=== PATIENT | female | born 1965 | race Caucasian/White ===

== ENCOUNTER 2019-04-06 08:47 | Outpatient (CLI) | payer BC, SELFPAY ==
--- NOTE | 2019-04-06 11:00 | NEURO_ITS ---
Patient Number: [id number] Impression: # Complains of left foot pain. # Normal nerve conduction study with symmetrical latencies and velocities. # Normal needle/EMG exam. # Clinical correlation recommended. Nerve Conduction Studies Anti Sensory Summary Table Stim Site NR Peak (ms) P-T Amp (?V) Site1 Site2 Delta-P (ms) Dist (cm) Tacho (m/s) Left Sup Fibular Anti Sensory (Ant Lat Mall) 14 cm 3.0 5.6 14 cm Ant Lat Mall 3.0 16.0 53 Right Sup Fibular Anti Sensory (Ant Lat Mall) 14 cm 3.8 8.2 14 cm Ant Lat Mall 3.8 16.0 42 Left Sural Anti Sensory (Lat Mall) Calf 3.5 13.9 Calf Lat Mall 3.5 16.0 46 Right Sural Anti Sensory (Lat Mall) Calf 3.6 12.8 Calf Lat Mall 3.6 16.0 44 Motor Summary Table Stim Site NR Onset (ms) O-P Amp (mV) Site1 Site2 Delta-0 (ms) Dist (cm) Tacho (m/s) Left Peroneal Motor (Vastus Med) Ankle 5.3 1.2 Popit Ankle 6.2 35.0 56 Popit 11.5 1.0 Right Peroneal Motor (Vastus Med) Ankle 4.8 2.2 Popit Ankle 7.5 37.0 49 Popit 12.3 1.8 Left Tibial Motor (Abd Pennington Brev) Ankle 4.4 3.8 Knee Ankle 7.9 39.0 49 Knee 12.3 2.1 Right Tibial Motor (Abd Pennington Brev) Ankle 4.1 4.3 Knee Ankle 8.3 40.0 48 Knee 12.4 3.7 F Wave Studies NR F-Lat (ms) L-R F-Lat (ms) Left Peroneal (Mrkrs) (EDB) 49.30 1.41 Right Peroneal (Mrkrs) (EDB) 50.71 1.41 Left Tibial (Mrkrs) (Abd Hallucis) 50.09 1.16 Right Tibial (Mrkrs) (Abd Hallucis) 51.25 1.16 EMG Side Muscle Nerve Root Ins Act Fibs Amp Dur Recrt Comment Right AntTibialis Dp Br Fibular L4-5 Nml Nml Nml Nml Nml Right Gastroc Tibial S1-2 Nml Nml Nml Nml Nml Right Fibularis Long Sup Br Fibular L5-S1 Nml Nml Nml Nml Nml Right Flex Dig Long Tibial L5-S2 Nml Nml Nml Nml Nml Right Ext Dig Brev Dp Br Fibular L5, S1 Nml Nml Nml Nml Nml Left AntTibialis Dp Br Fibular L4-5 Nml Nml Nml Nml Nml Left Gastroc Tibial S1-2 Nml Nml Nml Nml Nml Left Fibularis Long Sup Br Fibular L5-S1 Nml Nml Nml Nml Nml Left Flex Dig Long Tibial L5-S2 Nml Nml Nml Nml Nml Left Ext Dig Brev Dp Br Fibular L5, S1 Nml Nml Nml Nml Nml MTDD
== END 2019-04-06 08:48 | disposition home or self-care (01) ==
PROVIDERS: PCP Family Medicine; Visit Provider Family Medicine
DX: M79.672 Pain in left foot (principal)
CPT/HCPCS: 95886; 95910

== ENCOUNTER → 2019-04-06 10:03 | Outpatient (CLI) | payer BC, SELFPAY ==
--- NOTE | ~2019-04-06 | MM_ITS ---
EXAMINATION: MM screening [facility] HISTORY: Screening mammogram TECHNIQUE: Craniocaudal and mediolateral oblique 3-D tomosynthesis images were obtained and synthetic 2-D images were generated. CAD analysis was submitted and interpreted. COMPARISON: 11/19/2017, 10/08/2016, 09/23/2016 BREAST PARENCHYMAL COMPOSITION: There are scattered areas of fibroglandular density. FINDINGS: Scattered benign-appearing calcifications are present. There is no evidence of suspicious m ass, calcification, or architectural distortion to suggest malignancy in either breast. There has bee n no suspicious interval change. IMPRESSION: 1. No mammographic evidence of malignancy. 2. Recommend routine screening mammography in one year. BI-RADS Category 2: Benign finding(s). Reviewed, dictated and finalized at location A. R TESTER PRIMARY
== END ==
PROVIDERS: PCP Family Medicine; Visit Provider Nurse Practitioner Obstetrics & Gynecology
DX: Z12.31 Encounter for screening mammogram for malignant neoplasm of breast (principal)
CPT/HCPCS: 77063; 77067

== ENCOUNTER 2019-11-10 16:06 | Emergency (ER) | payer BC, SELFPAY ==
[2019-11-10 16:20] VITALS: BP 123/87; PULSE 94; RESP 18; TEMP 37; O2SAT 99
--- NOTE | 2019-11-10 16:23 | ED.SKABFB ---
HPI - Skin/Abscess/Foreign Bdy General Chief complaint: Skin/Abscess/Foreign Body Stated complaint: rash on neck and hands Time Seen by Provider: 11/10/19 16:23 Source: patient and RN notes reviewed History of Present Illness HPI narrative: Patient is a 53-year-old female who presents the urgent care with complaints of a poison carmen rash to the hands, neck, chest and face. Patient states approximately 3 days ago she pulled a large weed/vine and believes that is what caused the rash. Patient states that she has been using an old prescription of triamcinolone to the area without much relief. Denies of any other issues or areas of the rash. No other acute complaints. No acute distress noted. Patient aware of the plan of care. Some parts of this dictation were generated by voice recognition software and may contain typographical and/or grammatical inaccuracies. Related Data Home Medications Medication Instructions Recorded Confirmed multivitamin-ferrous 1 tablet PO DAILY 12/20/18 11/10/19 fumarate-folic acid 18 mg-400 mcg tablet omega-3 fatty acids 1,000 mg 1,000 mg PO DAILY 12/20/18 11/10/19 capsule minocycline 100 mg PO DAILY 11/10/19 11/10/19 pantoprazole 1 mg PO DAILY 11/10/19 11/10/19 valacyclovir 500 mg PO DAILY 11/10/19 11/10/19 Allergies Allergy/AdvReac Type Severity Reaction Status Date / Time ciprofloxacin Allergy Unknown Unknown Verified 11/10/19 16:28 famotidine Allergy Unknown Rash Verified 11/10/19 16:28 Quinolones Allergy Unknown Unknown Verified 11/10/19 16:28 Review of Systems Review of Systems: Narrative: CONSTITUTIONAL: Denies fever, chills, or sweats. EYES: Denies visual changes, redness, or discharge. ENT: Denies rhinorrhea, congestion, sore throat, or otalgia. CARDIOVASCULAR: Denies chest pain, palpitations, or edema. RESPIRATORY: Denies cough or dyspnea. GASTROINTESTINAL: Denies abdominal pain, nausea, vomiting, or diarrhea. GENITOURINARY: Denies dysuria or hematuria. SKIN: Reports of itchy red poison carmen on her face, chest, hands and neck MUSCULOSKELETAL: Denies back pain, joint pain, or myalgia. NEUROLOGIC: Denies headache, numbness, or weakness. All other systems reviewed are negative, except as documented in HPI. PMFSH Social History Social History Smoking status: Never smoker Second hand tobacco smoke exposure: No Alcohol intake: current Substance use: unknown Additional occupation/education comments: Teacher Comments At the time of my signature, I reviewed and agree with the nursing past medical, surgical, social, and family history. There is no relevant family history pertinent to the patient complaint. Exam Narrative: Exam Narrative: GENERAL: This is a well-nourished, well-developed patient, in no apparent distress. HEAD: normocephalic, atraumatic. EYES: PERRL. Sclera clear/white. Vision is grossly intact. EARS: External ears normal, NOSE: External nose normal with no obvious nasal discharge, nares without redness, no rhinorrhea. THROAT: Mucous membranes moist NECK: Neck supple SKIN: Pustular erythemic pruritic Rhus dermatitis noted to the right side of the face, lower lip, chest, back side of the neck and upper back NEURO: awake, alert, and oriented to person, place and time. There were no obvious focal neurologic abnormalities. EXTREMITIES: No clubbing, cyanosis, or edema. Course Vital Signs Vital signs: Vital Signs Temperature 98.6 F 11/10/19 16:20 Pulse Rate 94 11/10/19 16:20 Respiratory Rate 18 11/10/19 16:20 Blood Pressure 123/87 11/10/19 16:20 Pulse Oximetry 99 11/10/19 16:20 Temperature 98.6 F 11/10/19 16:20 Pulse Rate 94 11/10/19 16:20 Respiratory Rate 18 11/10/19 16:20 Blood Pressure 123/87 11/10/19 16:20 Pulse Oximetry 99 11/10/19 16:20 Reviewed MDM - Skin/Abscess/Foreign Bdy MDM Narrative Medical decision making narrative: Advised the patient to
== END 2019-11-10 16:40 | disposition home or self-care (01) ==
PROVIDERS: Emergency Provider Nurse Practitioner Family; PCP Family Medicine
DX: L23.7 Allergic contact dermatitis due to plants, except food (principal)
CPT/HCPCS: 99213; G0463

== ENCOUNTER → 2020-04-23 11:38 | Outpatient (CLI) | payer BC, SELFPAY ==
--- NOTE | ~2020-04-23 | XR_ITS ---
EXAMINATION: XR chest 2V DATE: 04/23/2020 11:45 INDICATION: Right neck pain and swelling TECHNIQUE: Frontal and lateral views of the chest are obtained COMPARISON: 02/01/2014 FINDINGS: The lungs are free of acute opacities. There is no pleural effusion or pneumothorax. The ca rdiomediastinal silhouette is normal. There is moderate thoracic spondylosis. IMPRESSION: 1. No acute cardiopulmonary abnormality. No radiographic correlate for the patient's neck swelling. Reviewed, dictated and finalized at location A. ER REPAIRER IMPRESSION: 1. No acute cardiopulmonary abnormality. No radiographic correlate for the wayne ent's neck swelling.
== END ==
PROVIDERS: PCP Family Medicine; Visit Provider Family Medicine
DX: R59.0 Localized enlarged lymph nodes (principal)
CPT/HCPCS: 71046

== ENCOUNTER 2020-05-07 12:26 | Outpatient (CLI) | payer BC, SELFPAY ==
--- NOTE | ~2020-05-07 | US_ITS ---
EXAMINATION: US soft tissue head and neck DATE: 05/07/2020 13:20 INDICATION: Right level 2 neck mass. Palpable lump. TECHNIQUE: Multiple grayscale and Doppler ultrasound images of the right submandibular region of conc lucio were obtained along with images of the contralateral left submandibular region for comparison. COMPARISON: Carotid CT angiogram dated 02/25/2017 FINDINGS: The palpable abnormality of concern appears to correspond to the right submandibular gland which appe ars enlarged, hypoechoic and with increased vascular flow on color Doppler 1 compared with the contra lateral left submandibular gland. The retromandibular gland measures 4.0 x 4.6 x 2.3 cm and the left submandibular gland measures 3.0 x 1.4 x 2.3 cm. No other abnormal masses or fluid collections identi fied. IMPRESSION: 1. Couple abnormality of concern corresponds to an asymmetrically enlarged, edematous and hyperemic r ight submandibular gland consistent with sialoadenitis. Reviewed, dictated and finalized at location A. IMPRESSION: 1. Couple abnormality of concern corresponds to an asymmetrically enlarged, stas matous and hyperemic right submandibular gland consistent with sialoadenitis.
== END 2020-05-07 12:27 | disposition home or self-care (01) ==
PROVIDERS: PCP Family Medicine; Visit Provider Otolaryngology
DX: R22.1 Localized swelling, mass and lump, neck (principal)
CPT/HCPCS: 76536

== ENCOUNTER → 2020-05-23 15:06 | Outpatient (CLI) | payer BC, SELFPAY ==
--- NOTE | ~2020-05-23 | CT_ITS ---
EXAMINATION: CT soft tissue neck w con EXAM DATE: 05/23/2020 15:36 INDICATION: R22.1 - Localized swelling, mass and lump, neck. TECHNIQUE: Spiral CT of the neck was performed following intravenous injection of 75 mL Omnipaque 350 . Axial, coronal and sagittal images were reviewed. The dose-length product (DLP) for this examinat ion was 382.58 mGy-cm. The exposure was tailored according to patient size (auto mA exposure control ), and iterative reconstruction (ASIR) was used as additional dose reduction technique. Correlation is made to CT carotid exam from 02/25/2017 FINDINGS: There is pathologically enlarged right-sided internal jugular chain lymph node at the krystin bular angle measuring 3.0 x 3.6 cm. This is new compared to 2018, and is suspicious for lymphoma or o ther malignancy. Ultrasound-guided core biopsy is recommended. Some small right thyroid coarse calcifications. The submandibular and parotid glands are symmetric. The superior mediastinum is unremarkable. The airway is unremarkable. Parapharyngeal and pre-gl ottic fat planes are preserved. The opacified vasculature is patent. The orbits are unremarkable. Mild mucoperiosteal thickening inferior aspects of the maxillary sinuses. The mastoid air cells ar e well aerated. Lung apices are clear. There is severe left facet arthropathy at C3-4. Otherwise ov erall mild to moderate cervical spondylosis. IMPRESSION: Pathologically enlarged right internal jugular chain lymph node most likely lymphoma or other malignancy. Recommend ultrasound-guided core biopsy. Reviewed, dictated and finalized at location A. IMPRESSION: Pathologically enlarged right internal jugular chain lymph node mo st likely lymphoma or other malignancy. Recommend ultrasound-guided core biopsy .
[2020-05-23 15:26] LABS: Estimated Glomerular Filt Rate > 60
== END ==
PROVIDERS: PCP Family Medicine; Visit Provider Otolaryngology
DX: R22.1 Localized swelling, mass and lump, neck (principal)
CPT/HCPCS: 70491; Q9967

== ENCOUNTER 2020-06-01 08:06 | Outpatient (CLI) | payer BC, SELFPAY ==
--- NOTE | ~2020-06-01 | US_ITS ---
EXAMINATION: US biopsy lymph node DATE: 06/01/2020 09:32 INDICATION: Right cervical lymphadenopathy. TECHNIQUE: The procedure including the risks, benefits, and alternatives was discussed with the patie nt. Risks discussed included bleeding and infection. The patient understood the risks and agreed to p roceed. The skin overlying the right neck was prepped and draped in usual sterile fashion. Anestheti c was administered with 1% lidocaine subcutaneously. An 18 gauge core biopsy needle was then used to obtain 6 core biopsy specimens under continuous sonographic guidance. The entry site was cleaned and dressed. There were no immediate complications. FINDINGS: Ultrasound images demonstrate the needle in a 4.4 x 2.3 x 3.6 cm right internal jugular us in lymph node. IMPRESSION: 1. Ultrasound-guided core needle biopsy an enlarged right internal jugular chain lymph node. Reviewed, dictated and finalized at location A. IMPRESSION: 1. Ultrasound-guided core needle biopsy an enlarged right internal jugular bright n lymph node.
== END 2020-06-01 08:07 | disposition home or self-care (01) ==
PROVIDERS: PCP Family Medicine; Visit Provider Otolaryngology
DX: R22.1 Localized swelling, mass and lump, neck (principal)
CPT/HCPCS: 38505; 76942; 88108; 88184; 88185; 88305; 88342

== ENCOUNTER 2020-06-12 07:33 | Outpatient (CLI) | payer BC, SELFPAY ==
--- NOTE | ~2020-06-12 | PE_ITS ---
EXAMINATION: PET skull to mid thigh DATE: 06/12/2020 09:20 INDICATION: Right neck poorly differentiated carcinoma. TECHNIQUE: Blood glucose level was 101 mg/dL. 10.737 mCi of 18-fluorodeoxyglucose (18-FDG) was admini stered i.v. Low dose computed tomography (CT) images were acquired from the base of the brain to the proximal thighs for attenuation correction and anatomic localization. Automated exposure control was employed. Dose-length product (DLP) was 977 mGy-cm. Positron emission tomography (PET) images were ac quired in the same distribution. COMPARISON: Neck CT 05/23/2020 FINDINGS: Head/neck: There is increased activity in the nasopharynx, oral cavity, and base of tongue without CT correlate, likely physiologic. There is a 3.7 x 3.3 cm high right internal jugular chain lymph node with maximum SUV of 6.2. There is an 1.8 x 1.0 cm low right internal jugular chain lymph node with ma ximum SUV of 2.5. Chest: The lungs demonstrate mild atelectasis. No pleural effusion. The heart size is normal. There a re coronary artery calcifications. No pericardial effusion. Abdomen/pelvis/proximal thighs: The liver, gallbladder, spleen, pancreas, adrenal glands, and kidneys are normal. There are no dilated loops of bowel. The appendix is normal. There are no pathologically enlarged lymph nodes. There is no free intraperitoneal fluid. There is no osseous malignancy. IMPRESSION: 1. Right internal jugular chain lymphadenopathy with increased activity, consistent with metastatic d isease. Reviewed, dictated and finalized at location A. IMPRESSION: 1. Right internal jugular chain lymphadenopathy with increased activity, consis tent with metastatic disease.
[2020-06-12 07:57] LABS: Glucose Point of Care 101 (65-105)
== END 2020-06-12 07:34 | disposition home or self-care (01) ==
PROVIDERS: PCP Family Medicine; Visit Provider Otolaryngology
DX: C76.0 Malignant neoplasm of head, face and neck (principal); R22.1 Localized swelling, mass and lump, neck
CPT/HCPCS: 78815; 82948; A9552

== ENCOUNTER → 2021-02-01 10:46 | Outpatient (CLI) | payer BC, SELFPAY ==
--- NOTE | ~2021-02-01 | MM_ITS ---
EXAMINATION: MM screening [facility] HISTORY: Screening TECHNIQUE: Craniocaudal and mediolateral oblique 3-D tomosynthesis images were obtained and synthetic 2-D images were generated. CAD analysis was submitted and interpreted. COMPARISON: Comparison to multiple prior studies sequentially, with oldest reviewed study dated 09/2014. BREAST PARENCHYMAL COMPOSITION: There are scattered areas of fibroglandular density. FINDINGS: There is no evidence of suspicious mass, calcification, or architectural distortion to sugg est malignancy in either breast. There has been no suspicious interval change. IMPRESSION: 1. No mammographic evidence of malignancy. 2. Recommend routine screening mammography in one year. BI-RADS Category 1: Negative Reviewed, dictated and finalized at location A. DEPUTY
== END ==
PROVIDERS: Visit Provider Nurse Practitioner Obstetrics & Gynecology
DX: Z12.31 Encounter for screening mammogram for malignant neoplasm of breast (principal)
CPT/HCPCS: 77063; 77067

== ENCOUNTER 2021-05-30 13:27 | Outpatient (CLI) | payer BC, SELFPAY ==
--- NOTE | 2021-05-30 13:39 | ECG_ITS ---
Measurements Intervals Energy Rate: 87 P: 80 IN: 146 QRS: 82 QRSD: 102 T: 83 QT: 368 QTc: 445 Interpretive Statements SINUS RHYTHM NONSPECIFIC T-WAVE ABNORMALITY ABNORMAL ECG NO PREVIOUS ECG AVAILABLE FOR COMPARISON Electronically Signed On 05-30-2021 17:03:15 CDT by Killian Duarte M.D.
== END 2021-05-30 13:28 | disposition home or self-care (01) ==
LOC: ANHCARD 13:30
PROVIDERS: PCP Family Medicine; Visit Provider Family Medicine
DX: R00.0 Tachycardia, unspecified (principal); R94.31 Abnormal electrocardiogram [ECG] [EKG]
CPT/HCPCS: 93005

== ENCOUNTER 2022-03-08 10:19 | Emergency (ER) | payer OTHER, SELFPAY ==
--- NOTE | 2022-03-08 10:21 | ED.FEMALEGU ---
HPI - Female Genitourinary General Chief complaint: Urogenital-Female Stated complaint: Urinary Problem Time Seen by Provider: 03/08/22 10:34 Source: patient and RN notes reviewed Mode of arrival: ambulatory Limitations: no limitations History of Present Illness HPI Narrative: 56-year-old female presents with concern urinary tract infection symptoms for 3 days. She reports dysuria, frequency, suprapubic pressure. Denies fever, aches, chills, sweats. Reports some nausea without vomiting or abdominal pain. Denies back pain MD elicited complaint: UTI Related Data Home Medications Medication Instructions Recorded Confirmed pimecrolimus 1 % topical cream 1 applic topical BID 07/02/20 01/22/22 Allergies Allergy/AdvReac Type Severity Reaction Status Date / Time ciprofloxacin Allergy Unknown rash Verified 01/22/22 16:13 famotidine Allergy Unknown Rash Verified 01/22/22 16:13 Quinolones Allergy Unknown Unknown Verified 01/22/22 16:13 Review of Systems Review of Systems: CONSTITUTIONAL: Denies malaise, chills, sweats, or fever. CARDIOVASCULAR: Denies chest pain, palpitations, or edema. RESPIRATORY: Denies cough or dyspnea. GASTROINTESTINAL: Denies abdominal pain, vomiting, diarrhea. Reports nausea GENITOURINARY: Reports dysuria, frequency, suprapubic pressure. Denies Urgency, flank pain or hematuria. SKIN: Denies rash or itching. MUSCULOSKELETAL: Denies back pain or myalgia. All systems reviewed & are unremarkable except as noted in HPI and below PMFSH Past Medical History Medical History Essential hypertension Fibromyalgia Gastroesophageal reflux disease Hypomagnesemia Mild episode of recurrent major depressive disorder Mixed hyperlipidemia Prediabetes Sleep apnea Vision loss Surgical History Surgical History Hx of tonsillectomy Family History Family History Mother Hypertension Cancer Father Family history of diabetes mellitus in first degree relative Social History Social History Smoking status: Never smoker Second hand tobacco smoke exposure: No Alcohol intake: current Alcohol use details: rare Substance use: never Substance use type: does not use Lack of Transportation: No Lack of Food: Never True Current Housing: I Have Housing Concerned About Future Housing: No Difficulty Paying Gas/Electric Bills: No Difficulty Paying for Meds: No Currently Unemployed: No Education: Master's Degree or Higher Difficulty w/ Childcare or Family Care: No Living arrangements: with family Occupation/Education: occupation Additional occupation/education comments: Teacher Gender identity (if verbalized by the patient): Female Sexual Orientation (if Verbalized by the Patient): Straight or Heterosexual Spiritual care concerns: No Agree to blood products: Yes Comments At time of signature, agree with nursing past medical, surgical, social and family history. There is no relevant family history pertinent to the presenting complaint Exam Narrative: GENERAL: Well-appearing, well-nourished, and in no acute distress. HEAD: Normocephalic. EYES: PERRLA, conjunctivae clear. NECK: Supple. No lymphadenopathy CHEST: Clear to auscultation. No respiratory distress. HEART: Regular rate and rhythm. ABDOMEN: Soft, nontender upon palpation, nondistended, normal active bowel sounds, no palpable or pulsatile masses, no guarding. No CVA tenderness SKIN: Warm, dry, no rash. NEURO: Alert and oriented x3. PSYCH: Normal mood and affect Course Course Emergency Course: Patient is aware of diagnosis, understands and agrees to treatment plan. Anticipatory guidance given. Patient agrees to follow-up as directed and is aware of reasons to seek care at the [facility]
[2022-03-08 10:26] VITALS: BP 130/73; PULSE 104; RESP 16; TEMP 37.1; O2SAT 100
== END 2022-03-08 10:45 | disposition home or self-care (01) ==
PROVIDERS: Emergency Provider Nurse Practitioner; PCP Family Medicine
DX: N39.0 Urinary tract infection, site not specified (principal); I10 Essential (primary) hypertension; M79.7 Fibromyalgia; K21.9 Gastro-esophageal reflux disease without esophagitis; E78.2 Mixed hyperlipidemia; R73.03 Prediabetes; F33.9 Major depressive disorder, recurrent, unspecified
CPT/HCPCS: 81003; 87086; 87088; 99213; G0463

== ENCOUNTER → 2022-04-15 14:59 | Outpatient (CLI) | payer OTHER, SELFPAY ==
--- NOTE | ~2022-04-15 | US_ITS ---
EXAMINATION: US pelvic complete w TV DATE: 04/15/2022 15:29 INDICATION: Pelvic and perineal pain. History of cervical cancer. Comparison:No prior studies for comparison. TECHNIQUE: Multiple transabdominal and endovaginal sonographic images of the pelvis performed. FINDINGS: The uterus measures 5.2 x 1.9 x 3.6 cm. There is a myometrial mass measuring 1.4 cm, consis tent with fibroid. The endometrial complex measures 4 mm. The ovaries are not visualized. There is no free fluid in the pelvis. There are no abnormal masses seen on either side. IMPRESSION: 1. Small uterine fibroid measuring 1.4 cm. 2: Thickened endomtrial complex. The differential diagnosis includes endometrial hyperplasia, polyp a nd carcinoma. Biopsy is recommended. Reviewed, dictated and finalized at location L. [facility] JUDGE IMPRESSION: 1. Small uterine fibroid measuring 1.4 cm. 2: Thickened endomtrial complex. The differential diagnosis includes endometria l hyperplasia, polyp and carcinoma. Biopsy is recommended.
== END ==
PROVIDERS: PCP Family Medicine; Visit Provider Family Medicine
DX: D25.9 Leiomyoma of uterus, unspecified (principal); R93.89 Abnormal findings on diagnostic imaging of other specified body structures; R10.2 Pelvic and perineal pain
CPT/HCPCS: 76830; 76856

== ENCOUNTER 2022-08-02 08:28 | Emergency (ER) | payer OTHER, SELFPAY ==
[2022-08-02 08:32] VITALS: BP 119/72; PULSE 86; RESP 20; TEMP 36.7; O2SAT 100
--- NOTE | 2022-08-02 08:41 | ED.FEMALEGU ---
HPI - Female Genitourinary General Chief complaint: Urogenital-Female Stated complaint: uti Time Seen by Provider: 08/02/22 08:41 Source: patient and RN notes reviewed History of Present Illness HPI Narrative: Patient is a 56-year-old female presents to the Urgent Care with complaints of dysuria and urinary urgency since . Patient does see a urologist and has a history of UTIs. Was told by her doctor to be evaluated this weekend. Patient was on Macrobid a couple months ago for strep B in the urine. Patient denies any fever, nausea, vomiting, back pain or abdominal pain. No other acute complaints. No acute distress noted. Patient aware of the plan of care. Some parts of this dictation were generated by voice recognition software and may contain typographical and/or grammatical inaccuracies. Related Data Home Medications Medication Instructions Recorded Confirmed fesoterodine 4 mg tablet,extended 4 mg PO DAILY 06/11/22 08/02/22 release 24 hr (Toviaz) Allergies Allergy/AdvReac Type Severity Reaction Status Date / Time ciprofloxacin Allergy Unknown rash Verified 08/02/22 08:48 famotidine Allergy Unknown Rash Verified 08/02/22 08:48 Quinolones Allergy Unknown Unknown Verified 08/02/22 08:48 Review of Systems Review of Systems: CONSTITUTIONAL: Denies fever, chills, or sweats. EYES: Denies visual changes, redness, or discharge. ENT: Denies rhinorrhea, congestion, sore throat, or otalgia. CARDIOVASCULAR: Denies chest pain, palpitations, or edema. RESPIRATORY: Denies cough or dyspnea. GASTROINTESTINAL: Denies abdominal pain, nausea, vomiting, or diarrhea. GENITOURINARY: Reports of dysuria and urgency SKIN: Denies rash or itching. MUSCULOSKELETAL: Denies back pain, joint pain, or myalgia. NEUROLOGIC: Denies headache, numbness, or weakness. All other systems reviewed are negative, except as documented in HPI. [facility] Past Medical History Medical History Essential hypertension Fibromyalgia Gastroesophageal reflux disease Hypomagnesemia Mild episode of recurrent major depressive disorder Mixed hyperlipidemia Prediabetes Sleep apnea Vision loss Surgical History Surgical History Hx of tonsillectomy Family History Family History Mother Hypertension Cancer Father Family history of diabetes mellitus in first degree relative Social History Social History Smoking status: Never smoker Second hand tobacco smoke exposure: No Alcohol intake: current Alcohol use details: rare Substance use: never Substance use type: does not use Lack of Transportation: No Lack of Food: Never True Current Housing: I Have Housing Concerned About Future Housing: No Difficulty Paying Gas/Electric Bills: No Difficulty Paying for Meds: No Currently Unemployed: No Education: Master's Degree or Higher Difficulty w/ Childcare or Family Care: No Living arrangements: with family Occupation/Education: occupation Additional occupation/education comments: Teacher Gender identity (if verbalized by the patient): Female Sexual Orientation (if Verbalized by the Patient): Straight or Heterosexual Spiritual care concerns: No Agree to blood products: Yes Comments At the time of my signature, I reviewed and agree with the nursing past medical, surgical, social, and family history. There is no relevant family history pertinent to the patient complaint. Exam Narrative: GENERAL: This is a well-nourished, well-developed patient, in no apparent distress. HEAD: normocephalic, atraumatic. EYES: PERRL. Sclera clear/white. Vision is grossly intact. EARS: External ears normal NOSE: External nose normal with no obvious nasal discharge, nares without redness, no rhinorrhea. THROAT:
== END 2022-08-02 09:05 | disposition home or self-care (01) ==
PROVIDERS: Emergency Provider Nurse Practitioner Family; PCP Family Medicine
DX: N39.0 Urinary tract infection, site not specified (principal); I10 Essential (primary) hypertension; K21.9 Gastro-esophageal reflux disease without esophagitis; E78.5 Hyperlipidemia, unspecified; R73.03 Prediabetes
CPT/HCPCS: 81003; 87086; 99213; G0463

== ENCOUNTER → 2022-09-01 10:34 | Outpatient (CLI) | payer OTHER, SELFPAY ==
--- NOTE | ~2022-09-01 | MM_ITS ---
EXAMINATION: MM screening [facility] HISTORY: Screening TECHNIQUE: Craniocaudal and mediolateral oblique 3-D tomosynthesis images were obtained and synthetic 2-D images were generated. CAD analysis was submitted and interpreted. COMPARISON: Comparison to multiple prior studies sequentially, with oldest reviewed study dated 02/2015. BREAST PARENCHYMAL COMPOSITION: There are scattered areas of fibroglandular density. FINDINGS: There are benign bilateral breast calcifications. There is no evidence of suspicious mass, calcification, or architectural distortion to suggest malignancy in either breast. There has been no suspicious interval change. IMPRESSION: 1. No mammographic evidence of malignancy. 2. Recommend routine screening mammography in one year. BI-RADS Category 1: Negative Reviewed, dictated and finalized at location A.
== END ==
PROVIDERS: PCP Obstetrics & Gynecology; Visit Provider Obstetrics & Gynecology
DX: Z12.31 Encounter for screening mammogram for malignant neoplasm of breast (principal)
CPT/HCPCS: 77063; 77067

== ENCOUNTER 2023-04-09 09:08 | Emergency (ER) | payer OTHER, SELFPAY ==
--- NOTE | 2023-04-09 09:43 | ED.EYEPROB ---
HPI - Eye Problem General Stated complaint: Eye Problem Time Seen by Provider: 04/09/23 09:43 Source: patient, RN notes reviewed and old records reviewed Mode of arrival: ambulatory Limitations: no limitations History of Present Illness HPI Narrative: 57 yo female presents to the [facility] with left eye redness and discharge that started this morning. Eye was crusted 2 year. Denies any blurry vision or change in vision. Wears glasses not contacts Granddaughter had pink eye last week. Onset (ago): hour(s) Related Data Home Medications Medication Instructions Recorded Confirmed fesoterodine 4 mg tablet,extended 4 mg PO DAILY 06/11/22 01/13/23 release 24 hr (Toviaz) Allergies Allergy/AdvReac Type Severity Reaction Status Date / Time ciprofloxacin Allergy Unknown rash Verified 01/13/23 15:24 famotidine Allergy Unknown Rash Verified 01/13/23 15:24 Quinolones Allergy Unknown Unknown Verified 01/13/23 15:24 Review of Systems Review of Systems: All systems reviewed & are unremarkable except as noted in HPI and below Constitutional: Constitutional: Reports no additional constitutional complaints Eyes: Eyes: Reports as per HPI, Reports eye discharge, Reports irritation and Reports itchy eyes ENT: Reports system reviewed and no additional complaints, except as documented Cardiovascular: Cardiovascular: Reports no additional cardiovascular complaints, Denies chest pain and Denies dyspnea Respiratory: Respiratory: Reports no additional respiratory complaints, Denies chest congestion, Denies cough and Denies dyspnea Gastrointestinal: Gastrointestinal: Reports no additional gastrointestinal complaints, Denies abdominal pain, Denies nausea and Denies vomiting Musculoskeletal: Musculoskeletal: Reports no additional musculoskeletal complaints Integumentary/Breasts: Skin/Breast: Reports system reviewed and no additional complaints, except as docu Neurologic: Reports system reviewed and no additional complaints, except as documented Psychiatric: Psychiatric: Reports no additional psychiatric complaints Allergic/Immunologic: Allergic/Immunologic: Reports no additional allergic/immunologic complaints PMFSH Past Medical History Medical History Cancer of head and neck HPV Cervical cancer Essential hypertension Fibromyalgia Gastroesophageal reflux disease Hypomagnesemia Mild episode of recurrent major depressive disorder Mixed hyperlipidemia Prediabetes Sleep apnea Vision loss Surgical History Surgical History Hx of tonsillectomy Family History Family History Mother Hypertension Cancer Father Family history of diabetes mellitus in first degree relative Social History Social History Smoking status: Never smoker Second hand tobacco smoke exposure: No Alcohol intake: current Alcohol use details: rare Substance use: never Substance use type: does not use Lack of Transportation: No Lack of Food: Never True Current Housing: I Have Housing Concerned About Future Housing: No Difficulty Paying Gas/Electric Bills: No Difficulty Paying for Meds: No Currently Unemployed: No Education: Master's Degree or Higher Difficulty w/ Childcare or Family Care: No Living arrangements: with family Occupation/Education: occupation Additional occupation/education comments: Teacher Gender identity (if verbalized by the patient): Female Sexual Orientation (if Verbalized by the Patient): Straight or Heterosexual Spiritual care concerns: No Agree to blood products: Yes Comments At the time of my signature, I reviewed and agree with the nursing past medical, surgical, social, and family history. There is no relevant family history pertinent to the patient complaint. Alen
== END 2023-04-09 09:40 | disposition home or self-care (01) ==
PROVIDERS: Emergency Provider Nurse Practitioner; PCP Family Medicine
DX: H10.32 Unspecified acute conjunctivitis, left eye (principal); I10 Essential (primary) hypertension; E78.2 Mixed hyperlipidemia; Z85.41 Personal history of malignant neoplasm of cervix uteri
CPT/HCPCS: 99212; G0463

== ENCOUNTER 2023-07-14 08:20 | Emergency (ER) | payer OTHER, SELFPAY ==
[2023-07-14 08:24] VITALS: BP 123/77; PULSE 97; RESP 20; TEMP 36.9; O2SAT 100
--- NOTE | 2023-07-14 08:27 | ED.SKABFB ---
HPI - Skin/Abscess/Foreign Bdy General Chief complaint: Skin/Abscess/Foreign Body Stated complaint: poison [place] Time Seen by Provider: 07/14/23 08:29 Source: patient, RN notes reviewed and old records reviewed Mode of arrival: ambulatory Limitations: no limitations History of Present Illness HPI narrative: 57 year old female who presents to [facility] with complaints of exposure to some posion plant on while cleaning out flower beds and mowing and developed rash to chin,near left inner eye and on left upper arm on Thursday. Patient reports that rash is spreading and is very itchy. Patient reports that she has been taking orally Benadryl and has used Benadryl ointment to rash with no improvement. Patient denies any difficulty with her breathing or swallowing with respirations even and nonlabored and SAO2 100% on room air. MD complaint: rash Onset (ago): day(s) (4 days) Location: face Severity: moderate Treatments prior to arrival: Benadryl (orally and ointment to rash) Related Data Home Medications Medication Instructions Recorded Confirmed fesoterodine 4 mg tablet,extended 4 mg PO DAILY 06/11/22 05/01/23 release 24 hr (Toviaz) Allergies Allergy/AdvReac Type Severity Reaction Status Date / Time ciprofloxacin Allergy Unknown rash Verified 05/01/23 09:59 famotidine Allergy Unknown Rash Verified 05/01/23 09:59 Quinolones Allergy Unknown Unknown Verified 05/01/23 09:59 Review of Systems Review of Systems: CONSTITUTIONAL: Denies fever, chills, or sweats. CARDIOVASCULAR: Denies chest pain, palpitations, or edema. RESPIRATORY: Denies cough or dyspnea. SKIN: Reports red raised rash to chin area around mouth, near left inner eye and to left upper arm which is itchy MUSCULOSKELETAL: Denies joint pain or myalgia. NEUROLOGIC: Denies headache, numbness, or weakness. All systems reviewed & are unremarkable except as noted in HPI and below PMFSH Past Medical History Medical History (Updated 07/14/23 @ 08:53 by Joanna Romeo NP) Cancer of head and neck HPV Cervical cancer Essential hypertension Fibromyalgia Gastroesophageal reflux disease Hypomagnesemia Mild episode of recurrent major depressive disorder Mixed hyperlipidemia Prediabetes Sleep apnea Vision loss Surgical History Surgical History (Updated 07/14/23 @ 08:53 by Joanna Romeo NP) H/O lymph node excision right neck with chemo therapy and radiation treatment History of conization of cervix Hx of tonsillectomy Family History Family History Mother Hypertension Cancer Father Family history of diabetes mellitus in first degree relative Social History Social History Smoking status: Never smoker Second hand tobacco smoke exposure: No Alcohol intake: current Alcohol use details: rare Substance use: never Substance use type: does not use Lack of Transportation: No Lack of Food: Never True Current Housing: I Have Housing Concerned About Future Housing: No Difficulty Paying Gas/Electric Bills: No Difficulty Paying for Meds: No Currently Unemployed: No Education: Master's Degree or Higher Difficulty w/ Childcare or Family Care: No Living arrangements: with family Occupation/Education: occupation Additional occupation/education comments: Teacher Gender identity (if verbalized by the patient): Female Sexual Orientation (if Verbalized by the Patient): Straight or Heterosexual Spiritual care concerns: No Agree to blood products: Yes Comments At time of signature, agree with nursing past medical, surgical, social and family history. There is no relevant family history pertinent to the presenting complaint Exam Narrative: GENERAL: Well-appearing, well-nourished, and in no acute distress. HEAD: Normocephalic, atraumatic. EYES: PERRLA, conjunctivae chanell
[2023-07-14] MEDS: methylPREDNISolone ACETATE 80 MG/ML VIAL IM (08:43)
== END 2023-07-14 09:02 | disposition home or self-care (01) ==
PROVIDERS: Emergency Provider Registered Nurse; PCP Family Medicine
DX: L25.5 Unspecified contact dermatitis due to plants, except food (principal); I10 Essential (primary) hypertension; M79.7 Fibromyalgia; K21.9 Gastro-esophageal reflux disease without esophagitis; E78.2 Mixed hyperlipidemia; R73.03 Prediabetes; Z85.858 Personal history of malignant neoplasm of other endocrine glands; Z85.41 Personal history of malignant neoplasm of cervix uteri
CPT/HCPCS: 96372; 99213; G0463; J1010

== ENCOUNTER 2024-01-28 14:49 | Outpatient (CLI) | payer OTHER, SELFPAY ==
--- NOTE | ~2024-01-28 | MM_ITS ---
EXAMINATION: MM screening [facility] BI w [facility] HISTORY: Screening TECHNIQUE: Craniocaudal and mediolateral oblique 3-D tomosynthesis images were obtained and synthetic 2-D images were generated. CAD analysis was submitted and interpreted. COMPARISON: Comparison to multiple prior studies sequentially, with oldest reviewed study dated 09/2016. BREAST PARENCHYMAL COMPOSITION: Not dense: There are scattered areas of fibroglandular density. FINDINGS: There is no evidence of suspicious mass, calcification, or architectural distortion to sugg est malignancy in either breast. There has been no suspicious interval change. IMPRESSION: 1. No mammographic evidence of malignancy. 2. Recommend routine screening mammography in one year. BI-RADS Category 1: Negative Reviewed, dictated and finalized at location B. SUPERVISOR
== END 2024-01-28 14:50 | disposition home or self-care (01) ==
LOC: MICIMG 14:50
PROVIDERS: PCP Family Medicine; Visit Provider Obstetrics & Gynecology
DX: Z12.31 Encounter for screening mammogram for malignant neoplasm of breast (principal)
CPT/HCPCS: 77063; 77067

== ENCOUNTER 2024-07-11 09:03 | Emergency (ER) | payer OTHER, SELFPAY ==
--- OUTSIDE RECORDS SUMMARY | 2024-07-11 09:05 | XMS_ITS | Clinical Summary ---
Author Organization [facility] Address [address] [place] [address] Phone Care Team Providers Care Language Specialist Name Role Phone Naa Elizondo MD Primary Care Provider Zander Bacon MD Unavailable [phone] Enzo Funez MD Unavailable [phone] Troy Crump MD Unavailable [phone] Allergies Active Allergy Reactions Criticality Noted Date Comments Ciprofloxacin Rash 08/02/2020 Famotidine Rash 08/02/2020 Potassium Quinoline Sulfate Unknown 08/03/19 21 Unsure of reaction Medications Cyanocobalamin (VITAMIN B-12) 1000 MCG Tablet Take 1,000 mcg by mouth. 06/16/2020 Active DULoxetine (CYMBALTA) [address] Particles Take 60 mg by mouth. Active Loratadine 10 MG Capsule Take 10 mg by mouth daily. Active Multiple Vitamins-Mineral s (WOMENS MULTI PO) daily. Active pantoprazole (PROTONIX) 40 MG Tablet Delayed Response Take 40 mg by mouth 2 times daily. 04/23/2020 Active traZODone (DESYREL) 50 MG Tablet Take 50 mg by mouth daily. 10/15/2017 Active valACYclovir (VALTREX) 500 MG Tablet Take 500 mg by mouth daily. 05/21/2020 Active Calcium Carb-Cholecalcif joseph (CALCIUM 600 + D PO) Take by mouth Every other day. Active NIFEDIPINE PO daily. Active trimethoprim-juliette ymyxin b (POLYTRIM) 41559-5.1 UNIT/ML-% Solution 04/09/2023 Active Active Problems Problem Noted Date Diagnosed Date Lesion of hard palate 05/17/2024 Overview (05/17/2024): 2 mm punctate lesion of the central hard palate, firm, with benign characteristics clinically. Xerostomia due to radiotherapy 04/24/2021 Overview (10/30/2021): Essentially resolved as per patient on visit 10/30/2021. Secondary to oropharyngeal radiotherapy for oropharyngeal carcinoma. Dysgeusia 04/24/2021 Overview (10/30/2021): Related to radiotherapy and cisplatin for treatment of oropharyngeal carcinoma. Tongue sensitivity to salt and pepper and tomato based products such as ketchup. History of chemotherapy 10/15/2020 Overview (10/15/2020): 3 cycles of cisplatin 100 mg/m2 with 1st cycle 09/03/2020, 2nd cycle 09/24/2020 and 3rd cycle 10/15/2020. 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 The largest node was the right level 2A node which was 5 cm in greatest dimension. There was no extracapsular extension. She was taken back to the OR 08/07/2020 for direct laryngoscopy with biopsy at which time a firm mass involving the right lateral lingual tonsil extending to the glossotonsillar sulcus was noted. The vallecular and midline base of tongue were not involved; the tumor did come up just to the midline. Biopsy of the right lateral lingual tonsil was positive for HPV-related adenosquamous carcinoma consistent with the right neck node histology from 07/17/2020. Non operative management was recommended. She began right oropharynx and regional nesha irradiation 09/03/2020 and completed 10/19/2020 receiving a total dose of 70 Gy in 35 fractions. Concurrent with her radiotherapy she received 3 cycles of cisplatin 100 mg/m2 with 1st cycle 09/03/2020, 2nd cycle 09/24/2020 and 3rd cycle 10/15/2020. History of therapeutic radiation Overview (10/18/2020): Right oropharynx and regional nesha radiation, 70 Gy in 35 fractions, from 09/03/2020 thru 10/19/2020. Resolved Problems Problem Noted Date Diagnosed Date Resolved Date Oral mucositis 10/15/2020 11/07/2020 Oral pain 10/15/2020 11/07/2020 Cancer with unknown primary site 11/07/2020 History of radical dissectio n of right side of neck 11/07/2020 Constipation 11/07/2020 Decreased bowel sounds 10/15 Radiation esophagitis 2021 Acute radiation dermatitis 0 11/07/2020 Adverse effect of radiation 04/24/2021 Overview (11/07/2020): Radiation pharyngitis/esophagitis. Oropharyngeal dysphagia 10/17 Encounter for follow-up exam ination after completed treatment for malignant neoplasm 05/17/2024 Encounters Date Type Department Care Team Description 05/17/2024 9:00 AM CDT Office Visit [facility] [address] [place] [address] Enzo Funez MD Encounter for follow-up examination after completed treatment for malignant neoplasm (Primary Dx); History of primary malignant neoplasm of oropharynx; History of therapeutic radiation; History of chemotherapy; Xerostomia due to radiotherapy; Dysgeusia; Lesion of hard palate Discharge Disposition: Discharged to home or Selfcare 05/17/2024 Travel 05/15/2024 Travel from Last 3 Months Family History Medical History Relation Name Comments Diabetes Father Breast Cancer Maternal Grandmother Cancer Mother Hypertension Mother Relation Name Status Comments Father Alive gastrointestion al issues Maternal Grandmother Mother Alive uterine cancer Social History Tobacco Use Types Packs/Day Years Used Date Smoking Tobacco: Never Smokeless Tobacco: Never Tobacco Cessation:Counseling Given: Not Answered Alcohol Use Standard Drinks/Week Comments Yes 0 (1 standard drink = 0.6 oz pur e alcohol) Occasionally PHQ-2 Answer Date Recorded Total Score - Questions 1-9 12 08/16 Comments No Sex and Gender Information Value Date Recorded Sex Assigned at Not on file Legal Sex Female 5:40 PM CDT Gender Identity Not on file Sexual Orientation Not on file Last Filed Vital Signs Vital Sign Reading Time Taken Comments Blood Pressure 119/75 05/17/2024 9:01 AM CDT Pulse 94 05/17/2024 9:01 AM CDT Temperature 36.5 C (97.7 F) 05/17/2024 9:01 AM CDT Respiratory Rate 18 05/17/2024 9:01 AM CDT Oxygen Saturation 100% 05/17/2024 9:01 AM CDT Inhaled Oxygen Concentration - - Weight 83 kg (183 lb) 05/17/2024 9:01 AM CDT Height 162.6 cm (5' 4) 11/10/2023 3:14 PM CDT Body Mass Index 31.41 11/10/2023 3:14 PM CDT Plan of Treatment Upcoming Encounters Date Type Department Care Team (Late st Contact Info) Description 11/10/2024 3:00 PM CDT Office Visit [facility] Oncology Services [address] [place] [phone] Troy Crump MD [address] [place] [address] Discharge Disposition: Discharged to home or Selfcare 04/24/2025 9:00 AM CDT [facility] [address] [place] [address] Enzo Funez MD [address] [place] [address] Health Maintenance Due Date Last Done Comments Hepatitis C Virus (HCV) Screening 1965 Mammogram 1965 TdaP Immunization 1965 Hepatitis B Immunization (1 of 3 - 19+ 3-dose series) 11/17/1986 Pap Smear 11/17/1988 Cervical Cancer Screening (CCS) 11/17/1997 HPV/Cotest 11/17/1997 Cologuard 11/17/2017 Immunochemical Fecal Occult Blood 11/17/2017 Pneumococcal Immunization (50+ years) (1 of 1 - PCV) 11/17/2017 Zoster Immunization (1 of 2) 11/17/2017 SARS-COV-2 Immunization (3 - season) 2023 02/07/2021, 04/20/2020 Influenza Immunization (Season Ended) 2024 11/27/2020, 11/16/2020, 11/15/2019, Additional history exists Colonoscopy 02/17/2029 02/17/2019, 02/15/2019 Colorectal Cancer Screening 02/17/2029 Respiratory Syncytial Virus (RSV) Immunization (Adult) (1 - 1-dose 75+ series) 11/17/2042 02/17/2019, 02/15/2019 Human Papillomavirus (HPV) Immunization Aged Out No longer eligible based on patient's age to complete this topic Meningococcal Immunization (ACWY) Aged Out No longer eligible based on patient's age to complete this topic Rotavirus Immunization Aged Out No lo nger eligible based on patient's age to complete this topic Goals Goal Patient Goal Type Associated Problems Recent Progress Patient-Stated? Author I want to learn to relax Behavioral Health On track(2020 2:55 PM CDT) Yes Josefina Carr, HOLISTIC PULSER Note: I want to learn how to relax so I can enjoy life. I don't want to be so anxious about all this. Goal Reviewed with: patient today Readiness to change: Ready to change Department associated with goal: [facility] Steps to achieve goal: will identify at least two coping skills/activities/habits that have helped to manage anxiety in the past. will identify at least three new coping skills/activities/habits that may help to prevent and/or cope with anxiety. 3. will identify a plan to implement coping skills and follow this plan for two weeks and evaluate the impact on anxiety 4. Will attend individual and/or group therapy at least 1x/month Behavioral Health Behavioral Health On track(2020 2:56 PM CDT) Josefina Tee, HILARIO Note: Sea will process thoughts and feelings related to her diagnosis and it's impact on her life. Goal Reviewed with: patient today Readiness to change: Ready to change Department associated with goal: [facility] Steps to achieve goal: will identify at least two ways their behavioral health impacts their physical health and vice versa. will implement at least one new way/skill/habit to reduce exacerbation of co-occurring disorders Will attend individual and/or group session at least 1x/month Healthy Lifestyle Healthy Lifestyle Yes Rae Coon, RN Note: Patient states that she would like to relearn better nutrition, relearn the proper foods and fluids to eat after going through chemo [facility] Care Teams Language Specialist Relationship Specialty Start Date End Date Naa Elizondo MD [address] [place] [address] PCP - General Family Medicine 08/02/20 Zander Bacon MD [address] [place] [address] Consulting Physician Otolaryngology & Facial Plastic Surgery 08/02/20 Enzo Funez MD [address] [place] [address] Consulting Physician Radiation Oncology 08/02/20 Troy Crump MD [address] [place] [address] Consulting Physician Medical Oncology 08/14/20
--- OUTSIDE RECORDS SUMMARY | 2024-07-11 09:05 | XMS_ITS | Clinical Summary ---
Author Organization [facility] Address [address] [place] [address] Care Team Providers Care Solid Die Cutter Name Role Phone Naa Elizondo MD Primary Care Provider [phone] Source Comments [facility],non-owned Affiliates and Associated Physician Practices is amultiple site organization consisting of ambulatory clinics and hospital sitesin [place], [place], [place] and [place]. This disclosure is being madepursuant to the Care Everywhere program and may not contain all information available regarding this patient. Last updated 17.[facility] Allergies Active Allergy Reactions Criticality Noted Date Comments Ciprofloxacin Rash Medium 10/28/2017 Famotidine GI Discomfort Low 06/27/2020 Medications * Be aware that medications may not be up to date on this document. Alwaysverify current medications with the patient. pantoprazole EC (PROTONIX) 40 MG tablet Take 1 (one) tablet by mouth once daily 04/23/2020 Active cyanocobalamin (VITAMIN B-12) 1000 MCG tablet Take 1 (one) tablet by mouth once daily 01/29/2021 Active DULoxetine (CYMBALTA) 60 MG capsule Take 1 (one) capsule by mouth once daily 01/29/2021 Active loratadine (CLARITIN) 10 MG tablet Take 1 (one) tablet by mouth once daily 01/29/2021 Active norethindrone (ORTHO MICRONOR; NOR-QD; CAREN; DIVYA; GLORIA-BE; SERGE; POONAM) 0.35 MG tablet Take 1 tablet by mouth once daily Active Drospirenone (SLYND) 4 MG TABS tablet Take 1 (one) tablet by mouth every 24 hours Active valACYclovir (VALTREX) 500 MG tablet Take 1 (one) tablet by mouth once daily 01/29/2021 Active Astatula-3 1000 MG Acti ve Calcium Citrate-Vitamin D (JUAN-CITRATE PLUS VITAMIN D PO) Active Inulin (FIBER CHOICE PO) Active Multiple Vitamins-Minera ls (WOMENS ONE DAILY PO) Active Magnesium 300 MG Active doxycycline hyclate (PERIOSTAT) 20 MG tablet Take 2 tablets by mouth as directed 06/06/2021 Active fesoterodine CR 24hr (Toviaz) 4 MG tablet Take 1 (one) tablet by mouth once daily 06/05/2022 Active amitriptyline (Elavil) 25 MG tablet Take 1 (one) tablet by mouth once daily 10/15/2022 Active buPROPion XL 24hr (Wellbutrin-XL) 300 MG tablet Take 1 (one) tablet by mouth every morning Active methylcellulose (Citrucel) 500 MG tablet Take 1 (one) tablet by mouth once daily Active NIFEdipine CR osmotic 24hr (Procardia-XL) 30 MG tablet Take 1 (one) tablet by mouth once daily Active zolpidem (Ambien) 5 MG tablet Take 1 (one) tablet by mouth once daily Active traZODone (Desyrel) 100 MG tablet Take 1 (one) tablet by mouth once daily Active Opzelura 1.5 % CREA Apply 1 Dose to affected area as directed 06/15/2023 Active terbinafine (LamISIL) 250 MG tablet Take 1 (one) tablet by mouth once daily 06/29/2023 Active Active Problems Problem Noted Date Diagnosed Date 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 Cancer Staging:Clinical stage from 08/15/2020:Stage I(cT1, cN1, cM0) - Signed by Zander Bacon MD on 08/15/2020 Encounters Date Type Department Care Team Description 05/09/2024 Telephone [facility] - ENT [address] [place] [phone] Zander Bacon MD Appointment from Last 3 Months Immunizations Immunization Administration Dates Next Due COVID MAYKEL PRIMARY 18+YR 04/20/2020 Covid Pfizer primary monovalent 12+ yr 0.3mL Pur ple cap 02/07/2021 INFLUENZA VACCINE 11/16/2020 Family History Medical History Relation Name Comments Cancer - Other Brother Osteoporosis Brother Anxiety Disorder Father Hypertension Father Osteoporosis Father Depression Maternal Grandmother Cancer - Other Mother Osteoporosis Mother Dementia Paternal Grandmother Depression Paternal Grandmother Relation Name Status Comments Brother Father Maternal Grandmother Mother Paternal Grandmother Social History Tobacco Use Types Packs/Day Years Used Date Smoking Tobacco: Never Smokeless Tobacco: Never Tobacco Cessation:Counseling Given: Not Answered Alcohol Use Standard Drinks/Week Comments Not Currently 0 (1 standard drink = 0.6 oz pur e alcohol) occ Comments No Sex and Gender Information Value Date Recorded Sex Assigned at Not on file 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 Gender Identity Not on file Sexual Orientation Not on file Last Filed Vital Signs Vital Sign Reading Time Taken Comments Blood Pressure 109/70 11/04/2023 8:23 AM CDT Pulse 89 11/04/2023 8:23 AM CDT Temperature 36.9 C (98.4 F) 06/28/2021 3:31 PM CDT Respiratory Rate 18 10/11/2021 3:55 PM CDT Oxygen Saturation 99% 10/11/2021 3:55 PM CDT Inhaled Oxygen Concentration - - Weight 81.6 kg (180 lb) 11/04/2023 8:23 AM CDT Height 162.6 cm (5' 4) 11/04/2023 8:23 AM CDT Body Mass Index 30.9 11/04/2023 8:23 AM CDT Plan of Treatment Upcoming Encounters Date Type Department Care Team (Late st Contact Info) Description 07/15/2024 3:00 PM CDT Office Visit [facility] - ENT [address] [place] [phone] Zander Bacon MD [address] [place] [id number] Health Maintenance Due Date Last Done Comments COLOGUARD (AGES 45-75) - COLON CA SCREENING 1967 COLON MONITORING 1967 COLONOSCOPY - COLON CA SCREENING 1967 CT COLONOGRAPHY - COLON CA SCREENING 1967 Colorectal Cancer Screening 1967 FIT - COLON CA SCREENING 1967 FLEX SIG - COLON CA SCREENING 1967 MAMMOGRAM 1967 HIV SCREENING 11/17/1982 HEPATITIS C SCREENING 11/13/1985 DTAP/TDAP/TD VACCINES (1 - Tdap) 11/17/1986 HEPATITIS B VACCINE (1 of 3 - 19+ 3-dose series) 11/17/1986 PNEUMOCOCCAL VACCINE 50+ (1 of 1 - PCV) 11/17/2017 ZOSTER VACCINE (1 of 2) 11/17/2017 COVID-19 VACCINE (3 - season) 2023 02/07/2021, 04/20/2020 DEPRESSION SCREENING 02/17/2024 INFLUENZA VACCINE (Season Ended) 2024 11/16/2020 PAP SMEAR 10/28/2025 10/28/2022, 07/19, 09/12/2020 SCREENING FOR DIABETES 07/05/2026 , 07/06/2023, 07/18/2020, Additional history exists LIPID TESTING 07/05/2028 07/06/2023, 06/21/2022 HIB VACCINE Aged Out No longer eligi ble based on patient's age to complete this topic HPV VACCINE Aged Out No longer eligi ble based on patient's age to complete this topic MENINGOCOCCAL (Group B) VACCINE SHARED DECISION-MAKING Aged Out No longer eligible based on patient's age to complete this topic MENINGOCOCCAL GROUPS A/C/Y/W VACCINE Aged Out No longer eligible based on patient's age to complete this topic Procedures Procedure Name Priority Date/Time Associated Diagnosis Comments COMPREHENSIVE METABOLIC PANEL Routine 07/06/2023 8:51 AM CDT Essential (primary) hypertension LIPID PROFILE Routine 07/06/2023 8:51 AM CDT Mixed hyperlipidemia from Last 3 Months or Most Recently Relevant to Health Maintenance Results * (ABNORMAL) COMPREHENSIVE METABOLIC PANEL (07/06/2023 8:51 AM CDT) BUN 10 7 - 26 mg/dL 07/06/2023 9:50 AM [facility] Creatinine 0.79 0.56 - 0.96 mg/dL 07/06/2023 9:50 AM [facility] Sodium 145 136 - 145 mmol/L 07/06/2023 9:50 AM [facility] Potassium 4.2 3.5 - 4.5 mmol/L 07/06/2023 9:50 AM [facility] Chloride 109(H) 98 - 107 mmol/L 07/06/2023 9:50 AM [facility] CO2 28 22 - 29 mmol/L 07/06/2023 9:50 AM [facility] Glucose 97 70 - 115 mg/dL 07/06/2023 9:50 AM [facility] Calcium 9.4 8.4 - 10.2 mg/dL 07/06/2023 9:50 AM [facility] Protein Total 6.7 6.0 - 8.3 g/dL 07/06/2023 9:50 AM [facility] Albumin 3.7 3.4 - 5.0 g/dL 07/06/2023 9:50 AM [facility] Bilirubin Total 0.3 0.2 - 1.2 mg/dL 07/06/2023 9:50 AM [facility] Alkaline Phosphatase 104 40 - 150 U/L 07/06/2023 9:50 AM [facility] ALT 20 5 - 55 U/L 07/06/2023 9:50 AM [facility] AST 15 5 - 34 U/L 07/06/2023 9:50 AM [facility] Anion Gap 8 6 - 16 07/06/2023 9:50 AM [facility] BUN/Creatinine Ratio 13 7 - 23 07/06/2023 9:50 AM [facility] Osmolality Calculated 299(H) 275 - 295 mOsm/kg 07/06/2023 9:50 AM [facility] Albumin/Globulin Ratio 1.2 1.1 - 2.3 07/06/2023 9:50 AM [facility] eGFR by CKD-EPI 88(L) >=90 mL/min/1.7 3 m2 07/06/2023 9:50 AM [facility] Blood BLOOD SPECIMEN / Unknown Lab Venipuncture / Unknown 07/06/2023 8:51 AM CDT 07/06/2023 9:10 AM CDT Naa Elizondo MD LAB - CHEMISTRY ORDERABLES Final Result [address] [address], [place] [phone] * LIPID PROFILE (07/06/2023 8:51 AM CDT) [facility] Cholesterol Total 162 <200 mg/dL 07/06/2023 9:39 AM [facility] HDL 45 >40 mg/dL 07/06/2023 9:39 AM [facility] Comment: ATP III Classification of HDL Cholesterol: <40 mg/dL: Considered a major risk factor. >60 mg/dL: Considered a negative risk factor. LDL Calculated 89 <100 mg/dL 07/06/2023 9:39 AM [facility] Comment: ATP III Classification of LDL Cholesterol: <100 mg/dL: Optimal 100 - 129 mg/dL: Near Optimal/Above Optimal 130 - 159 mg/dL: Borderline High 160 - 189 mg/dL: High >190 mg/dL: Very High Triglycerides 138 <150 mg/dL 07/06/2023 9:39 AM [facility] Comment: ATP III Classification of Triglycerides: <150 mg/dL: Normal 150 - 199 mg/dL: Borderline High 200 - 400 mg/dL: High >500 mg/dL: Very High Blood BLOOD SPECIMEN / Unknown Lab Venipuncture / Unknown 07/06/2023 8:51 AM CDT 07/06/2023 9:10 AM CDT Naa Elizondo MD LAB - CHEMISTRY ORDERABLES Final Result [address] [address], [place] [phone] from Last 3 Months or Most Recently Relevant to Health Maintenance Insurance [employer] Advance Directives Documents on File Type Date Recorded Patient Supercalender Operator Expl anation Adv Directive/Living Will/POA 07/28/2020 1:04 PM * Full Code (Latest Code Status on File) Date Activated Date Inactivated Comments 07/17/2020 4:03 PM 07/19/2020 11:03 AM Care Teams Solid Die Cutter Relationship Specialty Start Date End Date Naa Elizondo MD [address] [place] [address] PCP - General Family Medicine 08/01/20
--- OUTSIDE RECORDS SUMMARY | 2024-07-11 09:05 | XMS_ITS ---
Author Organization [facility] Address [address] [place] [address] Phone Care Team Providers Care Explosion Welder Name Role Phone Naa Elizondo MD Primary Care Provider [phone] Zander Bacon MD Unavailable Enzo Funez MD Unavailable [phone] Troy Crump MD Unavailable Active Problems Problem Noted Date Diagnosed Date [...] in 35 fractions, from 09/03/2020 thru 10/19/2020. Current Treatment and Therapy Plans No current plan information found. Past Treatment and Therapy Plans Lifetime Dose Tracking * Chemical Lifetime Dose Automatic Entry Manual Entr y Cisplatin 263.565 mg/m2 (540 mg) 263.565 mg/m2 (540 mg) 0 mg/m2 (0 mg) Resolved Problems Problem Noted Date Diagnosed Date [...]
--- OUTSIDE RECORDS SUMMARY | 2024-07-11 09:05 | XMS_ITS | Clinical Summary ---
Author Organization [address] Address [address] [place] [address] Care Team Providers Care Marketing Development Manager Name Role Phone Naa Elizondo MD Primary Care Provider [phone] Allergies Active Allergy Reactions Criticality Noted Date Comments Ciprofloxacin Rash Medium 10/28/2017 Medications citalopram (CeleXA) 40 mg tablet Take 40 mg by mouth daily. 3 10/15/2017 Active loratadine (CLARITIN) 10 mg tablet Take 10 mg by mouth daily. 3 10/16/2017 Active traZODone (DESYREL) 50 mg tablet Take 50 mg by mouth nightly. at bedtime. 3 10/15/2017 Active NIFEdipine (PROCARDIA) 10 mg capsule Take 10 mg by mouth 3 (three) times a day. Active norethindrone-e. estradiol-iron (JUNEL FE 03/07) 1 mg-20 mcg (21)/75 mg (7) per tablet Take 1 tablet by mouth daily. Active buPROPion (WELLBUTRIN) 75 mg tablet Take 75 mg by mouth 2 (two) times a day. Active fenofibrate 150 mg capsule Take by mouth. Active lansoprazole (PREVACID) 15 mg capsule Take 15 mg by mouth daily. Active Active Problems No known active problems Encounters Date Type Department Care Team Description 06/08/2024 8:00 AM CDT - 06/08/2024 11:59 PM CDT Hospital Encounter [facility] [address] [place] [address] Screening for colon cancer Discharge Disposition: Discharge to home or self care from Last 3 Months Medical History Medical History Date Comments Depression Hypertension GERD (gastroesophageal reflux disease) Social History Tobacco Use Types Packs/Day Years Used Date Smoking Tobacco: Never Smokeless Tobacco: Never Comments Unknown Sex and Gender Information Value Date Recorded Sex Assigned at Not on file Legal Sex Female 5:42 PM CDT Gender Identity Not on file Sexual Orientation Not on file Obstetrics History Last Filed Vital Signs Vital Sign Reading Time Taken Comments Blood Pressure 112/60 12/28/2021 9:43 AM POLISHING PAD MOUNTER Pulse 102 12/28/2021 9:43 AM POLISHING PAD MOUNTER Temperature 37 C (98.6 F) 12/28/2021 9:43 AM POLISHING PAD MOUNTER Respiratory Rate 16 12/28/2021 9:43 AM POLISHING PAD MOUNTER Oxygen Saturation 98% 12/28/2021 9:43 AM POLISHING PAD MOUNTER Inhaled Oxygen Concentration - - Weight 81.6 kg (180 lb) 12/28/2021 9:43 AM POLISHING PAD MOUNTER Height 162.6 cm (5' 4) 12/28/2021 9:43 AM POLISHING PAD MOUNTER Body Mass Index 30.9 12/28/2021 9:43 AM POLISHING PAD MOUNTER Plan of Treatment Health Maintenance Due Date Last Done Comments Breast Cancer Screening-Mammogram 1965 Cervical Cancer Screening 1967 Depression Screening 1967 Hepatitis C Screening 1967 DTaP/Tdap/Td Vaccine (1 - Tdap) 11/17/1978 Hepatitis B Screening 11/17/1985 Regular Well Visit/Exam 18-64 11/17/1985 Zoster Vaccine (1 of 2) 11/17/2017 Influenza Vaccine (Season Ended) 2024 11/16/2020, 11/24/2018, 11/10/2017, Additional history exists Colon Cancer Screening-Colonoscopy 06/08/2034 06/08/2024, 03/03/2019 Colon Cancer Screening-CT Colonography Discontinued 06/08/2024, 02/25/2023, 03/03/2019 Colon Cancer Screening-DNA Stool Discontinued 06/08/2024, 02/25/2023, 03/03/2019 Colon Cancer Screening-FIT Discontinued 06/08, 02/25/2023, 03/03/2019 Colon Cancer Screening-Sigmoidoscopy Discontinued 06/08/2024, 02/25/2023, 03/03/2019 Pneumococcal vaccine <65 Aged Out No longer eligible based on patient's age to complete this topic Procedures Procedure Name Priority Date/Time Associated Diagnosis Comments CT VIRTUAL COLONOSCOPY DIAGNOSTIC WO CONTRAST Schedule Routine, Read Routine (OP Routine) 06/08/2024 8:48 AM CDT Screening for colon cancer from Last 3 Months Results * CT Colonoscopy Diagnostic WO Contrast (06/08/2024 8:48 AM CDT) Anatomical Region Laterality Modality Body N/A Computed Tomogra phy 06/08/2024 12:5 0 PM CDT Impressions 06/08/2024 1:38 PM CDT Colon: C1: Normal colon or benign lesion, continue routine screening. Extracolonic Findings: E1: Normal exam or anatomic variant Dictated by: Leisa Toussaint M.D. The radiology attending physician has personally reviewed this study, and had reviewed and/or edited this written report and agrees with it. Electronically signed by: Damaso Ferrer M.D. Narrative 06/08/2024 1:38 PM CDT EXAMINATION: CT colonography without intravenous contrast HISTORY: Colon cancer screening, incomplete colonoscopy in 2019. TECHNIQUE: Transaxial computed tomographic images through the abdomen and pelvis were obtained without intravenous contrast after insufflation of the colon with CO2 through a rectal catheter. Images were obtained in the supine and right lateral decubitus positions. COMPARISON: CT colonoscopy, 02/25/2023 FINDINGS: The following findings are reported according to the CT Colonography Reporting and Data System (C-RADS) from Radiology 2005; 236:3-9. Colonic preparation and distention: adequate. All six segments of the colon are adequately distended on both supine and right lateral decubitus views. Colonic findings: There is no diverticulosis. No polyps greater than 5 mm are detected. Extracolonic findings: This CT examination is performed without intravenous contrast and with a low dose technique optimized for evaluation of the colon. Within the limits of this technique, no significant extracolonic findings are present. Procedure Note Damaso Ferrer MD - 06/08/2024 EXAMINATION: CT colonography without intravenous contrast HISTORY: Colon cancer screening, incomplete colonoscopy in 2019. TECHNIQUE: Transaxial computed tomographic images through the abdomen and pelvis were obtained without intravenous contrast after insufflation of the colon with CO2 through a rectal catheter. Images were obtained in the supine and right lateral decubitus positions. COMPARISON: CT colonoscopy, 02/25/2023 FINDINGS: The following findings are reported according to the CT Colonography Reporting and Data System (C-RADS) from Radiology 2005; 236:3-9. Colonic preparation and distention: adequate. All six segments of the colon are adequately distended on both supine and right lateral decubitus views. Colonic findings: There is no diverticulosis. No polyps greater than 5 mm are detected. Extracolonic findings: This CT examination is performed without intravenous contrast and with a low dose technique optimized for evaluation of the colon. Within the limits of this technique, no significant extracolonic findings are present. IMPRESSION: Colon: C1: Normal colon or benign lesion, continue routine screening. Extracolonic Findings: E1: Normal exam or anatomic variant Dictated by: Leisa Toussaint M.D. The radiology attending physician has personally reviewed this study, and had reviewed and/or edited this written report and agrees with it. Electronically signed by: Damaso Ferrer M.D. Naa Elizondo MD IMG CT PROCEDURES Final Result from Last 3 Months Insurance [facility] [employer] [facility] [id number] [facility] [id number] Member Subscriber Plan / Payer (Ef fective 2021-Present) Name:Iraida Denson Member ID:[id number] Relation to Subscriber:Spouse Name:Dorys Denson Subscriber ID:[id number] Date of :1965 (Home) Address: [address] [place] [address] Payer ID:[id number] Type:[employer] HMO/PPO Address: [facility] [address] [place] [id number] Care Teams Marketing Development Manager Relationship Specialty Start Date End Date Naa Elizondo MD PCP - General Family Medicine 10/28/17
--- OUTSIDE RECORDS SUMMARY | 2024-07-11 09:05 | XMS_ITS | Encounter Summary ---
Author Organization [facility] Address [address] [facility] [place] [address] Care Team Providers Care Vehicle Operator Technician Name Role Phone Naa Elizondo MD Primary Care Provider Encounter Details Date Type Department Care Team (Late st Contact Info) Description 06/01/2020 Lab Requisition [facility] [address] [place] [address] Enzo Kerns MD [address] [place], [place] [id number] Enlarged lymph nodes, unspecified Social History Tobacco Use Types Packs/Day Years Used Date Smoking Tobacco: Never Alcohol Use Standard Drinks/Week Comments Yes 0 (1 standard drink = 0.6 oz pur e alcohol) Comments Unknown Sex and Gender Information Value Date Recorded Sex Assigned at Not on file 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 Gender Identity Not on file Sexual Orientation Not on file documented as of this encounter Plan of Treatment Upcoming Encounters Date Type Department Care Team (Late st Contact Info) Description 07/15/2024 3:00 PM CDT Office Visit [facility] - [facility]NT [address] [place] [address] Zander Bacon MD [facility] [place] [address] documented as of this encounter Procedures Procedure Name Priority Date/Time Associated Diagnosis Comments FLOW CYTOMETRY TISSUE PANEL Routine 06/01/2020 8:43 AM CDT Enlarged lymph nodes, unspecified documented in this encounter Results * FLOW CYTOMETRY TISSUE PANEL (06/01/2020 8:43 AM CDT) Case Report Flow Cytometry Case: [id number] Authorizing Provider: Enzo Kerns MD Collected: 06/01/2020 08:43 AM Ordering Location: [facility] Lab Received: 06/01/2020 12:28 PM Pathologist: Anupam Pardo MD Specimen: RIGHT NECK MASS 06/01/2020 3:40 PM CDT [facility] Final Diagnosis Right neck mass, flow cytometry: - No clonal B-cell or aberrant T-cell population identified 06/01/2020 3:40 PM CDT [facility] at 1540 CDT Flow Cytometry Interpretation Flow cytometry of the neck mass reveals a viability of 75%. Most of the events fall into lymphocyte gate. The CD19+, CD20+ B-cells are polytypic with a kappa:lambda ratio of 1.5:1. Furthermore, the T-cells show no immunophenotypic aberrancies. Blasts are not increased. The cytospin prepared from the flow specimen does show larger atypical cells. Correlation with histology is recommended. 06/01/2020 3:40 PM CDT [facility] Flow Cytometry Results Differential Result Comment Flow Cell Count /uL 800 Total Viability % 75.0 Lymphocytes % 82 Dim CD45 Region % 4 Monocytes % 5 Granulocytes % 7 06/01/2020 3:40 PM CDT [facility] Reason for test Enlarged lymph nodes, unspecified 06/01/2020 3:40 PM CDT [facility] Client Specimen ID # [id number] 06/01/2020 3:40 PM CDT [facility] Number of markers 16 were performed. A-2 Flow CD2 A-3 Flow CD3 A-4 Flow CD4 A-8 Flow CD1a A-10 Flow CD10 A-12 Flow CD20 A-13 Flow CD23 A-5 Flow CD5 A-6 Flow CD7 A-7 Flow CD8 A-9 Flow CD30 A-11 Flow CD19 A-14 Flow CD34 A-15 Flow CD45 A-16 Bryan+CD19+ A-17 Lambda+CD19+ 06/01/2020 3:40 PM CDT [facility] Disclaimer Test performed at [facility], [address] [place], [place], [address]. *The established laboratory minimum viability is 70%. Values below the minimum may result in the failure to find an abnormal population of cells. This test was developed and its performance characteristics determined by the Flow Cytometry Laboratory. It has not been cleared by the [place] Food and Drug Administration (FDA). The FDA has determined that such clearance or approval is not necessary. This test is used for clinical purposes. It should not be regarded as investigational or for research. This laboratory is regulated under the Clinical Laboratory Improvement Amendments of 1998 (CLIA) as a qualified to perform high complexity clinical testing. 06/01/2020 3:40 PM CDT [facility] Embedded Images 3:40 PM CDT [facility] Pathology/Cytolo gy 06/01/2020 8:43 AM CDT 06/01/2020 12:28 PM CDT Enzo Kerns MD LAB - PATHOLOGY/CYTOLOGY ORDER KINDRA Final Result [facility] [address] [facility] [phone] documented in this encounter Visit Diagnoses Diagnosis Enlarged lymph nodes, unspecified documented in this encounter Additional Health Concerns Infection Onset Date Last Indicated Resolved Time COVID-19 Under Investigation 07/13/2020 07/13/2020 07/13/2020 7:54 PM CDT documented as of this encounter Care Teams Vehicle Operator Technician Relationship Specialty Start Date End Date Naa Elizondo MD [address] [place] [address] PCP - General Family Medicine 08/01/20 documented as of this encounter
--- OUTSIDE RECORDS SUMMARY | 2024-07-11 09:05 | XMS_ITS | Referral Summary ---
Author Organization [address] Address [address] [place] [address] Care Team Providers Care Show Host/Hostess Name Role Phone Naa Elizondo MD Primary Care Provider [phone] Encounters Date Type Department Care Team Description 06/08/2024 8:00 AM CDT - 06/08/2024 11:59 PM CDT Hospital Encounter [facility] [address] [place] [address] Screening for colon cancer Discharge Disposition: Discharge to home or self care from Last 3 Months Allergies Active Allergy Reactions Criticality Noted Date [...] Active Active Problems No known active problems Social History Tobacco Use Types Packs/Day Years Used Date Smoking Tobacco: Never Smokeless Tobacco: Never Comments Unknown Sex and Gender Information Value Date Recorded Sex Assigned at Not on file Legal Sex Female 5:42 PM CDT Gender Identity Not on file Sexual Orientation Not on file Last Filed Vital Signs Vital Sign Reading Time Taken Comments Blood Pressure 112/60 12/28/2021 9:43 AM SOURCING ANALYST Pulse 102 12/28/2021 9:43 AM SOURCING ANALYST Temperature 37 C (98.6 F) 12/28/2021 9:43 AM SOURCING ANALYST Respiratory Rate 16 12/28/2021 9:43 AM SOURCING ANALYST Oxygen Saturation 98% 12/28/2021 9:43 AM SOURCING ANALYST Inhaled Oxygen Concentration - - Weight 81.6 kg (180 lb) 12/28/2021 9:43 AM SOURCING ANALYST Height 162.6 cm (5' 4) 12/28/2021 9:43 AM SOURCING ANALYST Body Mass Index 30.9 12/28/2021 9:43 AM SOURCING ANALYST Plan of Treatment Not on file Procedures Procedure Name Priority Date/Time Associated Diagnosis [...] and agrees with it. Electronically signed by: Daamso Ferrer M.D. Naa Elizondo MD [facility] CT PROCEDURES Final Result from Last 3 Months Insurance [facility] [employer] OPEN ACCESS SEC [employer] [facility] [employer] [facility] [id number] [facility] [id number] Care Teams Show Host/Hostess Relationship Specialty Start Date End Date Naa Elizondo MD PCP - General Family Medicine 10/28/17
--- OUTSIDE RECORDS SUMMARY | 2024-07-11 09:05 | XMS_ITS | Data Portability ---
Author Organization [facility] [place], [facility], [place] Address [address] [place] [address] Care Team Providers Care Machine Shorthand Teacher Name Role Phone MICA MORENO Primary Care Provider [phone] Assessment Encounter Date Assessment Date Assessment LastModified by Organization Details LastModified Time 08/15/2021 08/15/2021 Annual gynecological exam performed. Patient will come back in a year unless there are new symptoms. Not available 08/15/2021 13:26:31 10/28/2022 10/28/2022 Annual gynecological exam performed. Patient will come back in a year unless there are new symptoms. Not available 10/28/2022 16:36:23 11/02/2023 11/02/2023 Annual gynecological exam performed. Patient will come back in a year unless there are new symptoms. Not available 11/02/2023 17:53:52 Plan of Treatment Reminders Order Date Submit Date Provider Last Modified By Organization Details Last Modified Time Details Appointments None recorded. Lab surgical pathology study 2022 023 [facility] (Lab), [address], [place], [address], 3 14:26:25 Referral None recorded. Procedures None recorded. Surgeries None recorded. Imaging MAMMO, screening, digital, bilateral 2022 023 [facility], [address], [place], [address], 4 11:06:11 Medication Orders Slynd 4 mg (28) tablet 2021 [id number], [address] , [place], [place], [id number], 3 16:38:14 Slynd 4 mg (28) tablet [address] [id number], [address] , [place], [place], [id number], 3 16:38:14 Patient TargetsNo targets recorded. Patient InstructionsNo instructions recorded. Reason for Referral None Reported. Results Created Date Observation Date Name Description Value Unit Range Abnormal Flag Note LastModifiedBy Organization Detail LastModifiedTime 03/15/19 22 03/15/2021 IMAGE GUIDE D PAP AND HPV REGAR DLESS image guided Pap, HPV regardless of Pap result SEE RESULT S BELOW abnormal CASE REPOR T: Cytol ogy Gynec ologi juan Repor t Case: [id number] Autho darius aidan Provi david: Sea Grimaldo Colle cted: 03/15 1612 SERVER SECURITY ADMINISTRATOR Order ing Locat ion: [place] Patho logy Recei nick: 03/16 0023 First Scree n: Christina Dewey ret, CT Speci men: Scree gavin Pap - Image d, Cervi x STATE MENT OF ADEQU ACY: Satis facto ry for evalu ation Trans forma tion zone compo nent prese nt FINAL DIAGN OSIS: Negat kevin for Intra epith elial Eduardo gil or Becca palencia (NIL) . Ino oakes donna d by Christina Dewey ret, CT on at 11:30 AM ----- ----- ----- ----- ----- ----- ----- ----- ----- ----- ----- ----- ----- ----- ----- ----- ----- ---- HPV RESUL TS: HPV mRNA E6/E7 : Posit kevin - HPV mRNA Detec cristian HPV GENOT YPE 16 (NEETU) : Not Detec cristian HPV GENOT YPE 18/45 (NEETU) : Not Detec cristian NOTE: This high risk HPV mRNA assay detec ts fourt een high- risk HPV types (16, 18, 31, 33, 35, 39, 45, 51, 52, 56, 58, 59, 66, 68) witho ut diffe renti ation . This assay can diffe renti ate HPV 16 from HPV 18/45 , but does not diffe renti ate betwe en HPV 18 and HPV 45. A negat kevin HPV 16, 18/45 genot ype assay resul t does not exclu de the possi bilit y of cytol ogic abnor malit ies or of futur e or under lying ELENA 1, ELENA 3 or cance r. COMME NT: Note: This speci men was revie wed by a Cytot echno logis t and/o r Patho logis t (as indic ated in this repor t) after evalu ation using the Thinp rep Imagi ng Syste m. CLINI JUAN INFOR MATIO N: Menst rual Statu s: LMP (if appli cable ): Clini juan Histo ry/Pr eviou s Pap: Type of Neopl karthikeyan (if appli cable ): Signi fican t Clini juan Findi ngs: Other Histo ry: Hormo sapna (if appli cable ): PAP EDUCA MARITZA L NOTE: The Pap Test is a scree gavin test with an inher ent false negat kevin rate. Liqui d-bas ed sampl ing may decre ase, but will not elimi sarah, false negat kevin resul ts. A negat kevin resul t does not precl ude the prese nce and/o r devel opmen t of disea se, since the prese nce of abnor mal cells in the sampl e depen ds on the locat ion of the lesio n and sampl ing techn ique. Anish nued regul ar scree gavin is the best metho d of cance r preve ntion . If repor cristian cytol ogic findi ng do not corre late with physi juan and/o r histo rical findi ngs, furth er inves tigat ion is recom booker d, as clini ariel mathias nted. Not Available [facility] (Lab) [address], [place], [address], 03/23/2021 12:33:31 08/16/19 22 08/15/2021 IMAGE GUIDE D PAP AND HPV REGAR DLESS image guided Pap, HPV regardless of Pap result SEE RESULT S BELOW abnormal CASE REPOR T: Cytol ogy Gynec ologi juan Repor t Case: [id number] Autho darius bermudez Provi david: Sea Grimaldo Colle cted: 08/15 1557 SERVER SECURITY ADMINISTRATOR Order ing Locat ion: [place] Patho logy Recei nick: 08/16 0150 First Scree n: DeLuc a, Dariana, CT Patho logis t: Beatriz Caal MD Speci men: Terry childg Pap - Image d, Cervi x STATE MENT OF ADEQU ACY: Satis facto ry for evalu ation Trans forma tion zone compo nent prese nt FINAL DIAGN OSIS: Epith elial Cell Abnor malit y, Squam ous Cell: Atypi juan Squam ous Cells of Undet ermin ed Signi fican ce (ASC- US). Elect rosalino sam by Beatriz Caal MD on 022 at 8:27 AM ----- ----- ----- ----- ----- ----- ----- ----- ----- ----- ----- ----- ----- ----- ----- ----- ----- ---- HPV RESUL TS: HPV mRNA E6/E7 : No HPV mRNA Detec cristian NOTE: This high risk HPV mRNA assay detec ts fourt een high- risk HPV types (16, 18, 31, 33, 35, 39, 45, 51, 52, 56, 58, 59, 66, 68) witho ut diffe renti ation . COMME NT: Slide scree andrea kvng lly due to rejec tion by the Thinp rep Imagi ng Syste m. CLINI JUAN INFOR MATIO N: Menst rual Statu s: LMP (if appli cable ): Clini juan Histo ry/Pr eviou s Pap: Type of Neopl karthikeyan (if appli cable ): Signi fican t Clini juan Findi ngs: Other Histo ry: Hormo sapna (if appli cable ): SUGGE STED FOLLO W-UP: Follo w up as warra nted, based on curre nt guide lines and indiv idual patie nt consi derat ions. Not Available [facility] (Lab) [address], [place], [address], 08/23/2021 09:29:49 04/22/19 23 04/21/2022 SURGI JUAN PATHO LOGY surgical pathology SEE RESULT S BELOW CASE REPOR T: Surgi juan Patho logy Repor t Case: [id number] Autho ivelisserubi aidan Provi david: Fabrice Castañeda MD Colle cted: 04/21 1011 Order ing Locat ion: [place] Patho logy Recei nick: 04/22 0146 Patho logis t: Amy Krueger MD Speci men: Endom etriu m, EMB FINAL DIAGN OSIS: Endom etria l biops y: -Supe rfici al fragm ents of inact kevin endom etriu m. -Frag ments of benig n endoc ervic al gland ular tissu e and squam ous mucos a. Ino thompson d by Amy Krueger MD on 023 at 1:23 PM ----- ----- ----- ----- ----- ----- ----- ----- ----- ----- ----- ----- ----- ----- ----- ----- ----- ---- CLINI JUAN INFOR MATIO N: [id number] MICRO SCOPI C DESCR IPTIO N: A micro scopi c exami natio n was perfo rmed. GROSS DESCR IPTIO N: A. Humera etriu m. The speci men is label ed with the patie nt's name, demog raphi cs and EMB. Recei nick in forma christine is a 2.0 x 1.0 x 0.1 [address] gate of molina-w jose tissu e and mucoi d mater ial. The entir e speci men is submi tted in one casse tte. Gross ed by Roxana Bravo Not Available [facility] (Lab) [address], [place], [address], 04/22/2022 14:26:25 10/29/19 23 10/28/2022 IMAGE GUIDE D PAP AND HPV REGAR DLESS image guided Pap, HPV regardless of Pap result SEE RESULT S BELOW CASE REPOR T: Cytol ogy Gynec ologi juan Repor t Case: [id number] Autho rirubi g Provi david: Sea Grimaldo Colle cted: 10/28 1658 SERVER SECURITY ADMINISTRATOR Order ing Locat ion: [place] Patho logy Recei nick: 10/29 0719 First Scree n: Milly Land, CT Rescr een: Christina Dewey ret, CT Speci men: Scree gavin Pap - Image d, Cervi x STATE MENT OF ADEQU ACY: Satis facto ry for evalu ation Trans forma tion zone compo nent canno t be defin itive ly ident ified due to the prese nce of atrop hy or other hormo nal dao es Parti ally obscu ring infla mmati on prese nt FINAL DIAGN OSIS: Negat kevin for Intra epith elial Lesio n or Becca palencia (NIL) . Atrop hic cell sandra jarrell. Elect rosalino oakes donna d by Christina Dewey ret, CT on 2022 at 2:54 PM ----- ----- ----- ----- ----- ----- ----- ----- ----- ----- ----- ----- ----- ----- ----- ----- ----- ---- HPV RESUL TS: HPV mRNA E6/E7 : No HPV mRNA Detec cristian NOTE: This high risk HPV mRNA assay detec ts fourt een high- risk HPV types (16, 18, 31, 33, 35, 39, 45, 51, 52, 56, 58, 59, 66, 68) witho ut diffe renti ation . COMME NT: This speci men was revie wed by a Cytot echno logis t and/o r Patho logis t (as indic ated in this repor t) after evalu ation using the Thinp rep Imagi ng Syste m. CLINI JUAN INFOR MATIO N: Menst rual Statu s: LMP (if appli cable ): Clini juan Histo ry/Pr eviou s Pap: Type of Neopl karthikeyan (if appli cable ): Signi fican t Clini juan Findi ngs: Other Histo ry: Hormo sapna (if appli cable ): PAP EDUCA MARITZA L NOTE: The Pap Test is a scree gavin test with an inher ent false negat kevin rate. Liqui d-bas ed sampl ing may decre ase, but will not elimi sarah, false negat kevin resul ts. A negat kevin resul t does not precl ude the prese nce and/o r devel opmen t of disea se, since the prese nce of abnor mal cells in the sampl e depen ds on the locat ion of the lesio n and sampl ing techn ique. Anish nued regul ar scree gavin is the best metho d of cance r preve ntion . If repor cristian cytol ogic findi ng do not corre late with physi juan and/o r histo rical findi ngs, fur er inves tigat ion is recom booker d, as clini ariel mathias nted. Not Available [facility] (Lab) [address], [place], [address], 10/30/2022 15:58:15 11/02/19 24 11/02/2023 IMAGE GUIDE D PAP AND HPV REGAR DLESS image guided Pap, HPV regardless of Pap result SEE RESULT S BELOW CASE REPOR T: Cytol ogy Gynec ologi juan Repor t Case: [id number] Autho darius bermudez Provi david: Fabrice Castañeda MD Colle cted: 11/01 1725 Order ing Locat ion: [place] Patho logclarita Recei nick: 11/02 0807 First Scree n: Rachna Rodarte, CT Rescr een: Christina Dewey ret, CT Speci men: Terry alonso Pap - Image d, Cervi x STATE MENT OF ADEQU ACY: Satis facto ry for evalu ation Trans forma tion zone compo nent prese nt Kenny oakes obscu ring infla mmati on prese nt ----- ----- ----- ----- ----- ----- ----- ----- ----- ----- ----- ----- ----- ----- ----- ----- ----- ---- FINAL DIAGN OSIS: Negat kevin for Intra epith elial Eduardo gil or Becca palencia (NIL) . Elect rosalino thompson d by Christina Dewey ret, CT on 2023 at 2:17 PM ----- ----- ----- ----- ----- ----- ----- ----- ----- ----- ----- ----- ----- ----- ----- ----- ----- ---- HPV RESUL TS: HPV mRNA E6/E7 : No HPV mRNA Detec cristian NOTE: This high risk HPV mRNA assay detec ts fourt een high- risk HPV types (16, 18, 31, 33, 35, 39, 45, 51, 52, 56, 58, 59, 66, 68) witho ut diffe renti ation . COMME NT: This speci men was revie wed by a Cytot echno logis t and/o r Patho logis t (as indic ated in this repor t) after evalu ation using the Thinp rep Imagi ng Syste m. CLINI JUAN INFOR MATIO N: Menst rual Statu s: LMP (if appli cable ): Clini juan Histo ry/Pr eviou s Pap: Type of Neopl karthikeyan (if appli cable ): Signi fican t Clini juan Findi ngs: Other Histo ry: Hormo sapna (if appli cable ): PAP EDUCA MARITZA L NOTE: The Pap Test is a scree gavin test with an inher ent false negat kevin rate. Liqui d-bas ed sampl ing may decre ase, but will not elimi sarah, false negat kevin resul ts. A negat kevin resul t does not precl ude the prese nce and/o r devel opmen t of disea se, since the prese nce of abnor mal cells in the sampl e depen ds on the locat ion of the lesio n and sampl ing techn ique. Anish nued regul ar scree gavin is the best metho d of cance r preve ntion . If repor cristian cytol ogic findi ng do not corre late with physi juan and/o r histo rical findi ngs, furth er inves tigat ion is recom booker d, as clini ariel warra nted. Not Available [facility] (Lab) [address], [place], [address], 11/09/2023 15:20:49 04/20/1904/15/2022 US, fran s, compl ete No observ ation record ed. [email or web address] [facility] [address], [place], [address], 04/20/2022 22:29:21 07/1709/01/2022 MAMMO , scree gavin, digit al, bilat eral No observ ation record ed. [facility] [address], [place], [address], 09/02/2022 17:38:30 01/28/20 24 01/28/2024 MAMMO , scree gavin, bilat eral No observ ation record ed. [facility] [address], [place], [address], 01/29/2024 11:02:41 Result Notes Documentation Provider Name and Address Organization Details Recorded Time Pap, Ig + Hr Hpv : 09/12/2020 pap/hpv ascus/neg 08/22/2019 pap/hpv wnl 08/16/2018 nl Golden Conrad [facility], [facility] 03/27/2021 12:35:00 Problems Name Problem SNOMED Code Status Onset Date Resolution Date Notes Provider Name and Address Organization Details Recorded Time Human papillom a virus infectio n 968830441 Completed 201309/11/2020 HUMAN PAPILLOM AVIRUS IN CONDITIO NS CLASSIFI ED ELSEWHER E AND OF UNSPECIF IED SITE;Rec orded Elsewher e: No Locat ion: [facility] S ource: EHR Reading Interventionist vicente: N Dana ce ID: [id number] Kvng lable Time: 04:30:00 PM Angela Vazquez [facility] 17:29:05 Speciali zed medical examinat ion Completed 201109/11/2020 Gynecolo gical Examinat ion;Sreekanth rded Elsewher e: No Locat ion: [facility] S ource: EHR Reading Interventionist vicente: N Practi ce ID: [id number] Kvng lable Time: 01:30:00 PM Angela [facility] 17:29:23 Evaluati on finding [id number] Completed 201609/11/2020 Oth abn and inconclu sive findings on dx imaging of breast;R ecorded Elsewher e: No Locat ion: [facility] S ource: EHR Reading Interventionist vicente: N Dana ce ID: [id number] Kvng lable Time: 03:57:36 PM Angela Vazquez [facility] 1 17:28:[address] Concept Completed 201509/11/2020 Encntr for sat act instructor exam (general ) (routine ) w/o abn findings ;Recorde d Elsewher e: No Locat ion: [facility] S ource: EHR Reading Interventionist vicente: N Isidoroti ce ID: [id number] Kvng lable Time: 05:00:00 PM Angela Vazquez [facility] 17:29:22 Atypical squamous cells of undeterm ined signific ance on cervical Papanico laou smear [id number] Completed 201209/11/2020 Papanico laou smear of cervix with atypical squamous cells of undeterm ined signific ance (ASC-US) ;Recorde d Elsewher e: No Locat ion: [facility] S ource: EHR Reading Interventionist vicente: N Isidoroti ce ID: [id number] Kvng lable Time: 03:45:00 PM Angela Vazquez [facility] 17:28:52 Screenin g for malignan t neoplasm of cervix Completed 201409/11/2020 Screenin g for malignan t neoplasm s of the cervix;R ecorded Elsewher e: No Locat ion: [facility] S ource: EHR Reading Interventionist vicente: N Isidoroti ce ID: [id number] Kvng lable Time: 04:30:00 PM Angela Vazquez [facility] 17:29:15 Low risk human papillom avirus deoxyrib onucleic acid detected in specimen from cervix [id number] Completed 201509/11/2020 Cervical low risk human papillom avirus (HPV) DNA test positive ;Recorde d Elsewher e: No Locat ion: [facility] S ource: EHR Reading Interventionist vicente: N Practi ce ID: [id number] Kvng lable Time: 08:30:00 AM Angela Vazquez [facility] 17:29:08 Abnormal cervical Papanico laou smear [id number] Completed 201409/11/2020 Other abnormal papanico laou smear of cervix and cervical HPV;Sreekanth rded Elsewher e: No Locat ion: [facility] N Practi ce ID: [id number] Kvng lable Time: 10:30:00 AM Angela Vazquez [facility] 17:28:50 Body mass index 30+ - obesity [id number] Completed 201609/11/2020 Body mass index (BMI) 33.0-33. 9, adult;Re corded Elsewher e: No Locat ion: [facility] N Isidoroti ce ID: [id number] Kvng lable Time: 09:30:00 AM Angela Vazquez [facility] 17:28:57 Screenin g for malignan t neoplasm of rectum Completed 201609/11/2020 Encounte r for screenin g for malignan t neoplasm of rectum;R ecorded Elsewher e: No Locat ion: [facility] ource: EHR Reading Interventionist vicente: N Isidoroti ce ID: [id number] Kvng lable Time: 09:30:00 AM Angela Vazquez [facility] 17:29:18 Human papillom avirus deoxyrib onucleic acid detected , high risk on cervical specimen [id number] Completed 201509/11/2020 Cervical high risk HPV DNA test positive ;Recorde d Elsewher e: No Locat ion: [facility] ource: EHR Reading Interventionist vicente: N Practi ce ID: [id number] Kvng lable Time: 10:12:30 AM Angela Vazquez null, [facility] 17:29:07 Pregnanc y test negative [id number] Completed 201509/11/2020 Encounte r for pregnanc y test, result negative ;Recorde d Elsewher e: No Locat ion: Anatoly siu [facility] S ource: EHR Reading Interventionist vicente: N Practi ce ID: [id number] Kvng lable Time: 03:30:00 PM Angela Vazquez [facility] 17:29:[address] Concept Completed 201709/11/2020 Encntr for general adult medical exam w/o abnormal findings ;Recorde d Elsewher e: No [facility] ource: EHR Reading Interventionist vicente: N Practi ce ID: [id number] Kvng lable Time: 03:30:00 PM Angela Vazquez [facility] 17:29:20 Obesity [id number] Completed 201409/11/2020 Obesity; Recorded Elsewher e: No Locat ion: [facility] S ource: EHR Reading Interventionist vicente: N Practi ce ID: [id number] Kvng lable Time: 04:30:00 PM Angela Vazquez [facility] 17:29:11 Evaluati on finding Completed 201709/11/2020 Hematuri a, unspecif ied;Sreekanth rded Elsewher e: No [facility] ource: EHR Reading Interventionist vicente: N Practi ce ID: [id number] Kvng lable Time: 03:30:00 PM Angela Vazquez [facility] 17:29:01 Benign essentia l hyperten aden [id number] Completed 201409/11/2020 Benign HTN;Sreekanth rded Elsewher e: No [facility] ource: EHR Reading Interventionist vicente: N Practi ce ID: [id number] Kvng lable Time: 04:30:00 PM Angela Vazquez [facility] 17:28:55 Family planning surveill ance Completed 201409/11/2020 Contrace ptive surveill ance;Rec orded Elsewher e: No Locat ion: Anatoly siu [facility] S ource: EHR Reading Interventionist vicente: N Practi ce ID: [id number] Kvng lable Time: 10:30:00 AM Angela Vazquez [facility] 17:29:04 Screenin g for malignan t neoplasm of colon Completed 201009/11/2020 Special screenin g for malignan t neoplasm s, colon;Pr actice ID: [id number] Angela Vazquez [facility] 17:29:17 Atypical squamous cells on cervical Papanico laou smear cannot exclude high grade squamous intraepi thelial lesion [id number] Completed 201009/11/2020 Pap Abnormal ASCH;Pra ctice ID: 0001 Angela [facility] 17:28:53 Problem Notes None recorded. Procedures Surgical History Date Name Laterality Status Provider Name and Address Organization Details Recorded Time 10/29/19 Date of Last Pap Smear completed Maureen Goodrich [facility] 11/02/2023 17:56:41 09/02/19 23 Date of Last Mammogram completed Maureen Goodrich [facility] 10/28/2022 16:40:20 04/20/19 23 Endometrial Biopsy completed Solo Castañeda MD [address], [place], [address], [facility] 04/19/2022 12:08:51 02/18/19 20 completed [facility] 09/12/2020 09:35:56 02/18/19 Date of Last Colonoscopy completed [facility] 09/12/2020 09:35:57 02/16/19 20 Colonoscopy completed Rosey Looney, [facility]- [address], [place], [address], [facility] 03/15/2021 16:38:03 Other completed Angela Vazquez [facility] 03/15/2021 16:29:30 Cryotherapy/Cryoc autery completed [facility] 08/22/2019 10:39:46 Tonsillectomy completed [facility] 08/22/2019 10:39:50 Imaging Results None recorded. Procedure Notes None recorded. Medical Equipment None Reported. Allergies Allergen ID Allergen Name Allergen Category Reaction Reaction Severity Criticality Documentation Date Start Date Code Code System Note Provider Name and Address Organization Details Recorded Time 1203 ciproflox acin medicatio n Not available Not available Not available 08/22/2019 2551 RxNorm Kimi Agrawal [facility], [facility] 0 10:36:47 16990 famotidin e medicatio n Not available Not available Not available 09/12/2020 4278 RxNorm Angela Vazquez [facility] 1 09:36:23 54591 Medicinal product containin g quinolone and acting as antibacte rial agent (product) medicatio n Not available Not available Not available 09/12/2020 03604 008 SNOMED Angela Vazquez [facility] 1 09:36:35 Medications Name Sig Start Date Stop Date Status Note LastModified by Organization Details LastModified Time nifedipin e ER 30 mg tablet,ex tended release 24 hr TAKE 1 TABLET BY MOUTH EVERY DAY active Not Available Not Available No t Available buspirone 5 mg tablet 03/15 completed Not Available Not Available Not Available prednison e 10 mg tablet PLEASE SEE ATTACHED FOR DETAILED DIRECTIO NS 11/01 completed Not Available Not Available Not Available doxycycli ne hyclate 100 mg capsule TAKE 1 CAPSULE BY MOUTH TWICE A DAY START 2 DASY BEFORE TRAVEL AND CONTINUE FOR 4 WEEKS UPON RETURN 11/01 completed Not Available Not Available Not Available citalopra m 40 mg tablet 08/15 completed Not Available Not Available Not Available trazodone 50 mg tablet 50 MG ORALLY DAILY 04/18 completed Not Available Not Available Not Available triamcino lone acetonide 0.5 % topical cream APPLY TOPICALL Y TO THE AFFECTED AREA TWICE DAILY 08/15 completed Not Available Not Available Not Available azithromy elena 250 mg tablet 09/11 completed Not Available Not Available Not Available Lidocaine Viscous 2 % mucosal solution MIX DIRECTED AND TAKE 5 MLS BY MOUTH EVERY 4 HOURS NEEDED FOR SORE THROAT 03/15 completed Not Available Not Available Not Available citalopra m 10 mg/5 mL oral solution take 10 millilit er by oral route every day 09/11 completed Prescrib ed [facility] e: Yes Loca tion: [facility] M odify By: jennifer appiah DateTime : 09/23/19 12 01:30:00 PM Not Available Not Available Not Available cephalexi n 250 mg capsule TAKE 1 CAPSULE BY MOUTH EVERY 8 HOURS FOR 7 DAYS 10/28 completed Not Available Not Available Not Available hydrocodo ne 5 mg-acetam inophen 325 mg tablet TAKE 1 TABLET BY MOUTH EVERY 8 HOURS NEEDED FOR PAIN 03/15 completed Not Available Not Available Not Available ondansetr on HCl 8 mg tablet TAKE 1 TABLET BY MOUTH EVERY 8 HOURS NEEDED FOR NAUSEA 03/15 completed Not Available Not Available Not Available minocycli ne 100 mg capsule TK 1 C PO BID 09/11 completed Not Available Not Available Not Available famotidin e 40 mg tablet 09/12 completed Not Available Not Available Not Available olanzapin e 5 mg tablet 08/15 completed Not Available Not Available Not Available pimecroli mus 1 % topical cream APPLY TOPICALL Y TO RASH AREAS ON EYELIDS TWICE DAILY 04/18 completed Not Available Not Available Not Available prochlorp erazine maleate 10 mg tablet TAKE 1 TABLET BY MOUTH EVERY 6 HOURS NEEDED FOR NAUSEA - 2ND LINE 03/15 completed Not Available Not Available Not Available valacyclo vir 500 mg tablet TAKE 1 TABLET BY MOUTH EVERY DAY active Not Available Not Available No t Available sulfameth oxazole 800 mg-trimet hoprim 160 mg tablet TAKE 1 TABLET BY MOUTH EVERY 12 HOURS FOR 5 DAYS 10/28 completed Not Available Not Available Not Available peg-elect rolyte solution 420 gram oral solution 09/12 completed Not Available Not Available Not Available triamcino lone acetonide 0.1 % topical cream APPLY TOPICALL Y TWICE A DAY 11/01 completed Not Available Not Available Not Available terbinafi ne HCl 250 mg tablet TAKE 1 TABLET BY MOUTH EVERY DAY active Not Available Not Available No t Available amitripty line 25 mg tablet TAKE 1 TABLET BY MOUTH EVERY DAY AT BEDTIME active Not Available Not Available No t Available trazodone 100 mg tablet TAKE 1 TABLET BY MOUTH EVERY DAY AT BEDTIME NEEDED FOR INSOMNIA active Not Available Not Available No t Available nifedipin e 10 mg capsule 03/15 completed Not Available Not Available Not Available pantopraz ole 40 mg tablet,de layed release TAKE 1 TABLET BY MOUTH TWICE A DAY active Not Available Not Available No t Available tacrolimu s 0.1 % topical ointment 03/15 completed Not Available Not Available Not Available triamcino lone acetonide 0.1 % topical ointment 1 APPLIC TOPICALL Y TWICE A DAY TO RASH NEVER APPLY TO THE FACE 11/01 completed Not Available Not Available Not Available ranitidin e 150 mg tablet 09/12 completed Not Available Not Available Not Available dexametha sone 4 mg tablet TAKE 1 TABLET BY MOUTH TWICE DAILY FOR 3 DAYS 03/15 completed Not Available Not Available Not Available polymyxin B sulfate 10,000 unit-trim ethoprim 1 mg/mL eye drops INSTILL 1 DROP AFFECTED EYE(S) EVERY 3 HOURS WHILE AWAKE FOR 7 DAYS 11/01 completed Not Available Not Available Not Available minocycli ne 50 mg capsule take 2 capsule by oral route every 12 hours 09/11 completed Prescrib danial Gonzalez e: Yes Loca tion: [facility] odify By: virgie E ncozakier DateTime : 08/17/19 19 08:30:00 AM Not Available Not Available Not Available lansopraz ole 15 mg capsule,d elayed release take 1 capsule by oral route every day before a meal 08/15 completed Prescrib ed Elsewher e: Yes Loca tion: [facility] odify By: jennifer appiah DateTime : 09/19/19 12 01:43:04 PM Not Available Not Available Not Available clindamyc in 2 % vaginal cream APPLY 1 APPLICAT ION VAGINALL Y EVERY DAY AT BEDTIME FOR 3 DAYS 10/28 completed Not Available Not Available Not Available mupirocin 2 % topical ointment TAIWO EXT AA BID 09/12 completed Not Available Not Available Not Available methylpre dnisolone 4 mg tablets in a dose pack FPD 09/11 completed Not Available Not Available Not Available doxycycli ne hyclate 20 mg tablet 40 MG ORALLY DAILY 10/28 completed Not Available Not Available Not Available norethind te (contrace ptive) 0.35 mg tablet TAKE 1 TABLET BY MOUTH EVERY DAY 08/15 completed Not Available Not Available Not Available calcium-m agnesium 300 mg-300 mg tablet active Prescrib ed Elsewher e: Yes [facility] By: virgie Siu ncounter DateTime : 08/17/19 19 08:30:00 AM Not Available Not Available Not Available Necon 0.5/35 (28) 0.5 mg-35 mcg tablet take 1 tablet by oral route every day 03/21 completed Prescrib ed Elsewher e: No Locat ion: [facility] odify By: joce amezcua DateTime : 03/01/19 15 09:38:52 AM Not Available Not Available Not Available cefdinir 300 mg capsule 300 MG ORALLY EVERY 12 HOURS FOR 10 DAYS 04/19 completed Not Available Not Available Not Available Zovirax 5 % topical ointment apply by topical route every 3 hours 6 times per day to the affected area(s) 10/28 completed Prescrib ed Elsewher e: No Locat ion: [facility] odify By: yariel Siu ncounter DateTime : 08/06/19 17 09:30:00 AM Not Available Not Available Not Available Ambien 5 mg tablet take 2 tablet by oral route every day at bedtime active Prescrib ed Elsewher e: Yes [facility] odify By: jnenifer appiah DateTime : 09/23/19 12 01:30:00 PM Not Available Not Available Not Available loratadin e 10 mg tablet TAKE 1 TABLET BY MOUTH EVERY DAY active Not Available Not Available No t Available amoxicill in 875 mg-potass ium clavulana te 125 mg tablet TAKE 1 TABLET BY MOUTH EVERY 12 HOURS 10/28 completed Not Available Not Available Not Available Vitamin B-12 1,000 mcg tablet TAKE 1 TABLET BY MOUTH EVERY DAY active Not Available Not Available No t Available oxycodone 5 mg tablet 09/12 completed Not Available Not Available Not Available clindamyc in 1 % lotion APPLY TO RASH AREAS ON EYELIDS TWICE DAILY 08/15 completed Not Available Not Available Not Available Vitamins and Minerals tablet active Prescrib ed Elsewher e: Yes [facility] By: jennifer appiah DateTime : 09/23/19 12 01:30:00 PM Not Available Not Available Not Available Calcium 500 + D 500 mg-5 mcg (200 unit) tablet 10/03 completed Prescrib ed Elsewher e: Yes Loca tion: [facility] odify By: shey appiah DateTime : 09/23/19 12 01:30:00 PM Not Available Not Available Not Available bupropion HCl XL 300 mg 24 hr tablet, extended release TAKE 1 TABLET BY MOUTH EVERY DAY IN THE MORNING active Not Available Not Available No t Available bupropion HCl (bulk) 100 % powder 03/15 completed Not Available Not Available Not Available nitrofura ntoin monohydra te/macroc rystals 100 mg capsule TAKE 1 CAPSULE BY MOUTH EVERY 12 HOURS FOR 5 DAYS WITH A MEAL. 10/28 completed Not Available Not Available Not Available duloxetin e 30 mg capsule,d elayed release 04/18 completed Not Available Not Available Not Available duloxetin e 60 mg capsule,d elayed release TAKE 1 CAPSULE BY MOUTH EVERY DAY active Not Available Not Available No t Available loratadin e 09/11 completed Not Available Not Available Not Available Zovirax 09/12 completed Not Available Not Available Not Available citalopra m 09/11 completed Not Available Not Available Not Available Calcium/M agnesium Formula 03/15 completed Not Available Not Available Not Available minocycli ne 09/11 completed Not Available Not Available Not Available nifedipin e 09/12 completed Not Available Not Available Not Available trazodone 09/12 completed Not Available Not Available Not Available fiber 03/15 completed Not Available Not Available Not Available Ambien 09/11 completed Not Available Not Available Not Available lansopraz ole 09/11 completed Not Available Not Available Not Available Trazodone 10/28 completed Not Available Not Available Not Available Vitamins and Minerals 09/12 completed Not Available Not Available Not Available fenofibra te 09/11 completed Not Available Not Available Not Available fenofibra te 50 mg capsule take 1 capsule by oral route every day with a meal 09/12 completed Prescrib ed Elsewher e: Yes Loca tion: [facility] odify By: shey appiah DateTime : 10/04/19 15 10:30:00 AM Not Available Not Available Not Available Reliance 3-6-9 (with lipase) 40 mg-60 mg-10 unit capsule active Prescrib ed Elsewher e: Yes Loca tion: [facility] odify By: virgie Siu ncounter DateTime : 08/17/19 19 08:30:00 AM Not Available Not Available Not Available Reliance 3-6-9 03/15 completed Not Available Not Available Not Available Fiber Laxative (methylce llulose) 500 mg tablet active Prescrib ed Elsewher e: Yes Loca tion: [facility] odify By: jennifer appiah DateTime : 09/23/19 12 01:30:00 PM Not Available Not Available Not Available fesoterod ine ER 4 mg tablet,ex tended release 24 hr TAKE 1 TABLET BY MOUTH EVERY DAY active Not Available Not Available No t Available bupropion HBr 09/11 completed Not Available Not Available Not Available GaviLyte- G 236 gram-22.7 4 gram-6.74 gram-5.86 gram oral solution 240 ML ORALLY EVERY 10 MINUTES UNTIL FECAL EFFLUENT IS CLEAR 11/01 completed Not Available Not Available Not Available B12 5,000 mcg-100 mcg sublingua l lozenge 10/28 completed Prescrib danial siu: Yes Loca tion: [facility] leena By: jennifer appiah DateTime : 09/23/19 12 01:30:00 PM Not Available Not Available Not Available B12 09/12 completed Not Available Not Available Not Available Claritin Liqui-Gel 10 mg capsule 08/15 completed Not Available Not Available Not Available Slynd 4 mg (28) tablet TAKE 1 TABLET BY MOUTH EVERY DAY 10/28 completed Not Available Not Available Not Available Fluarix Quad (PF) 60 mcg (15 mcg x 4)/0.5 mL IM syringe 09/11 completed Not Available Not Available Not Available ID NOW COVID-19 Test Kit TEST DIRECTED 09/11 completed Not Available Not Available Not Available Flucelvax Quad (PF) 60 mcg (15 mcg x 4)/0.5 mL IM syringe ADM 0.5ML IM UTD 09/11 completed Not Available Not Available Not Available Opzelura 1.5 % topical cream active Not Available Not Available Not Available Vitals Date Recorded Systolic And Diastolic Provider Name and Address Organization Details Last Updated DateTime 03/15/2021 130/82 mm[Hg] Rosey Looney, [facility]- [address], [place], [address], [facility] 03/15/2021 16:42:19 Date Recorded Body height Body mass index (BMI) Body weight Provider Name and Address Organization Details Last Updated DateTime 03/15/2021 152.4 cm 31.1 kg/m2 90744.62 g Angela Vazquez [facility] 03/15/2021 16:29:05 Date Recorded Body height Body mass index (BMI) Body weight Systolic And Diastolic Provider Name and Address Organization Details Last Updated DateTime 04/19/2022 161.29 cm 32.8 kg/m2 44531.37 g 130/78 mm[Hg] Eli Boyle [facility] 04/19/2022 11:35:42 Date Recorded Systolic And Diastolic Provider Name and Address Organization Details Last Updated DateTime 08/15/2021 133/76 mm[Hg] Rosey Looney, [facility]- [address], [place], [address], [facility] 08/15/2021 14:41:01 Date Recorded Body height Body mass index (BMI) Body weight Provider Name and Address Organization Details Last Updated DateTime 08/15/2021 161.29 cm 29.6 kg/m2 62805.7 g Angela Vazquez [facility] 08/15/2021 13:27:29 Date Recorded Body height Body mass index (BMI) Body weight Systolic And Diastolic Provider Name and Address Organization Details Last Updated DateTime 10/28/2022 161.29 cm 29.3 kg/m2 64778.52 g 105/69 mm[Hg] Maureen Goodrich [facility] 10/28/2022 16:37:10 Date Recorded Body height Body mass index (BMI) Body weight Systolic And Diastolic Provider Name and Address Organization Details Last Updated DateTime 11/02/2023 161.29 cm 31.4 kg/m2 98624.63 g 146/77 mm[Hg] Maureen Goodrich [facility] 11/02/2023 17:54:57 Social History Question Answer Notes LastModified by Organizat ion Details LastModified Time Tobacco Smoking Status Never Smoker Maureen Goodrich null, [facility] 10/28/2022 16:37:33 Do You Have An Advance Directive? Yes Information n ot available 09/12/2020 How Many Years Have You Consumed Alcohol? 34 Information not available 10/28/2022 Are You Blind Or Do You Have Difficulty Seeing? Yes Information n ot available 08/15/2021 What Is Your Level Of Caffeine Consumption? Moderate Information not available 03/12/2020 How Much Tobacco Do You Chew? None Information not available 09/12/2020 In The 14 Days Before Symptom Onset, Have You Had Close Contact With A Laboratory-confirm ed COVID-19 While That Case Was Ill? No Information n ot available 09/12/2020 In The 14 Days Before Symptom Onset, Have You Had Close Contact With A Person Who Is Under Investigation For COVID-19 While That Person Was Ill? No Information not available 09/12/2020 Have You Been To An Area Known To Be High Risk For COVID-19? No Information not available 09/12/2020 Are You Deaf Or Do You Have Serious Difficulty Hearing? No Information not available 09/12/2020 What Type Of Diet Are You Following? REGULAR Information n ot available 09/11/2020 What Is The Highest Grade Or Level Of School You Have Completed Or The Highest Degree You Have Received? [id number] Information not available 09/12/2020 How Many Days Of Moderate To Strenuous Exercise, Like A Brisk Walk, Did You Do In The Last 7 Days? 2 Information not available 10/28/2022 On Those Days That You Engage In Moderate To Strenuous Exercise, How Many Minutes, On Average, Do You Exercise? 30 Information not available 10/28/2022 Are There Any Guns Present In Your Home? Yes Information not available 09/12/2020 Have You Ever Been Counseled For Unhealthy Alcohol Use? No Information not available 10/28/2022 Do You Use Protection During Sex? Usually Information not available 09/12/2020 Do You Use Your Seat Belt Or Car Seat Routinely? Yes Information not available 09/12/2020 Do You Have Smoke And Carbon Monoxide Detectors In Your Home? Yes Information not available 09/12/2020 How Much Tobacco Do You Smoke? No Information not available 09/12/2020 Do You Use Sunscreen Routinely? Yes Information not available 09/12/2020 Has Tobacco Cessation Counseling Been Provided? No Information not available 10/28/2022 Have You Used IV Drugs? No Information not available 09/12/2020 How Many Days In The Past Year Have You Consumed 4 Or More Drinks? 5 Information not available 10/28/2022 Sex: Unknown Functional Status Question Answer Note LastModified by Organizat ion Details LastModified Time Do you use any illicit or recreational drugs? No Information not available 03/12/2020 Do you or have you ever used any other forms of tobacco or nicotine? No Information not available 10/28/2022 What is your level of alcohol consumption? Occasional Information not available 03/12/2020 Are you able to walk? 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 Moderate Information not available 03/15/2021 Mental Status Question Answer Note LastModified by Organization D etails LastModified Time Do you feel stressed (tense, restless, nervous, or anxious, or unable to sleep at night)? [id number] Information not available 09/12/2020 Family History Relationship Description Onset Age of this Age Resolved Age Notes LastModified by Organization Details LastModified Time Father Diabetes mellitus [email or web address] Not available 2019 10:39:01 Father Malignant tumor of colon [email or web address] Not available 2019 10:39:17 Mother Hypertensive disorder [email or web address] Not available 2019 10:39:09 Mother Carcinoma in situ of uterus [email or web address] Not available 2023 16:28:53 Medical History Condition Response Allergies (Food, seasonal, environmental ) Y Other Y Cancer Y Fibromyalgia Y Hypertension Y Depression/ depression Y Gynecological History Statement/Question Response Flow Light Date of Last Mammogram 09/01/2022 Date of LMP 01/17/2020 N Was last menstrual period normal N STIs/STDs Y Date of control 07/18/1995 Date of Last Colonoscopy 02/18/2019 Abnormal Pap Yes On BCP's at Conception? N HPV Vaccine N Duration of Flow (days) 2 Current Control Method Menopause Most Recent Bone Density Sexually Active? Y Menses Monthly N Age of first menstrual cycle 17 Date of Last Pap Smear 10/28/2022 Sexual Problems? N LMP Approximate 02/18/2019 N 07/17/1996 Obstetrics History GPAL:G 0 P 0 0 0 0 Type Value Living 0 Total 0 Past Encounters Encounter ID Performer Location Encounter Start Date Encounter Closed Date Diagnosis/Indication Diagnosis SNOMED-CT Code Diagnosis ICD10 Code Diagnosis Note [id number] Rosey Looney [facility] [address],[facility] [place] [address] 08/22/2019 10:26:43 08/22/2019 12:19:45 Gynecologic examination 70046706 Z01.419 Take Calcium with Vitamin D 12-1500mg daily. Do monthly self breast exams. It is advised to get annual flu shot in the fall and she could obtain at [facility] or [facility] clinic. If you haven't received the Tdap vaccine in the last 10 years you should obtain one as well. Have mammogram yearly, bone density every 2-3 years and colonoscop y every 5-10 years depending on findings and history. Engage in daily exercise of low impact aerobic exercise 45-60 minutes 4-5 times weekly. Avoid tobacco and illicit drugs as well as using moderation with alcohol intake less than 1-2 8 oz beverages daily. This lifestyle behavior pattern will lead to less health conditions and longer life span. If BMI greater than 25 weight watchers or dietary consult advised. Questions have been answered. Patient appears to understand instructio ns, but if you have any further questions call or respond to this email Irregular periods [id number] 07 N92.6 FSH/LH ordered Periods have been light q3-4mos for the past 2yrs. LMP 6/3 through 07/23/2019. We agreed to pursue labs. If wnl, consider TVUS & restart POP. [id number] [facility] [address] [address] 03/12/2020 16:24:45 03/12/2020 17:17:35 Irregular periods [id number] N92.6 Patient is here today for a medicaton check of control POP. She voices that had a lot of AUB when first starting that is only now starting to regulate back out; although still with some irregular pink spotting with wipe at times despite good compliance with POP. She denies neg side effects. She is eating, drinking, sleeping well; moods are stable & periods are well regulated. Wishes to continue this method of BC. Appropriat e to continue this medication . She is not unhappy with this POP but we discussed trial of SLYND vs older POP which has a more dependable delivery system that is less sensitive. She agreed to trial SLYND x 4mos. If loves it can call for RFs. If does not can switch back to Radha 0.35 POP. Time spent in visit is a total of 15 mins with at least 50% of visit consisting of counseling and review of plan of care. Additional precaution mick measures were taken to minimize potential exposure to the Covid-19 virus during this patient s visit, including available hand video rental clerk upon arrive, temperatur e check and being asked a series of screening questions. All staff wore face coverings during this encounter, as well as provided additional cleaning and sanitizing of all surfaces, including countertop s, pens, chairs, door handles, light switches, etc, prior to and following the patient s visit. [id number] Rosey Looney , [facility] [address] [address] 09/12/2020 09:13:01 09/12/2020 10:21:19 Gynecologic examination [id number] Z01.419 Take Calcium with Vitamin D 12-1500mg daily. Do monthly self breast exams. It is advised to get annual flu shot in the fall and she could obtain at [facility] or [facility] take care clinic. If you haven't received the Tdap vaccine in the last 10 years you should obtain one as well. Have mammogram yearly, bone density every 2-3 years and colonoscop y every 5-10 years depending on findings and history. Engage in daily exercise of low impact aerobic exercise 45-60 minutes 4-5 times weekly. Avoid tobacco and illicit drugs as well as using moderation with alcohol intake less than 1-2 8 oz beverages daily. This lifestyle behavior pattern will lead to less health conditions and longer life span. If BMI greater than 25 weight watchers or dietary consult advised. Questions have been answered. Patient appears to understand instructio ns, but if you have any further questions call or respond to this emailGoing through Neck/Throa t/Tongue cancer HPV related Chemo txment now.Pap/hp v sentHx of pap/hpv wnlColon UTD-PCPDex a N/ABC: POP--will call if chemo begins to effect periods. We discussed possibly switching to IUD. Screening for malignant neoplasm of breast [id number] Z12.39 [id number] Rosey Looney [facility] [address],[place] [address] 03/15/2021 16:19:02 03/18/2021 13:31:58 Human papillomavirus deoxyribonucleic acid detected, high risk on cervical specimen [id number] R87.810 R/P pap/hpv x 6mos sentWIl await results to see when next screening will be.She is UTD on other routine screenings : mammo/colo n screen/gen etic screen previously discussed. Time spent in visit is a total of 15 mins with at least 50% of visit consisting of counseling and review of plan of care.Addit ional precaution mick measures were taken to minimize potential exposure to the Covid-19 virus during this patient s visit, including available hand video rental clerk upon arrive, temperatur e check and being asked a series of screening questions. All staff wore face coverings during this encounter, as well as provided additional cleaning and sanitizing of all surfaces, including countertop s, pens, chairs, door handles, light switches, etc, prior to and following the patient s visit. [facility] management [id number] Z30.9 We will provide samples of SLYND.When needs samples can come by office to request them.At some point we will again r/p FSH/LH/Est radiol to see if she is menopause ranges and then can d/c POP. She is agreeable to this plan. [id number] Rosey Looney [facility] [address],[facility] [place] [address] 08/15/2021 13:06:28 08/15/2021 14:58:08 Gynecologic examination [id number] Z01.419 Z11.51 Take Calcium with Vitamin D 12-1500mg daily. Do monthly self breast exams. It is advised to get annual flu shot in the fall and she could obtain at [facility] or [facility] care clinic. If you haven't received the Tdap vaccine in the last 10 years you should obtain one as well. Have mammogram yearly, bone density every 2-3 years and colonoscop y every 5-10 years depending on findings and history. Engage in daily exercise of low impact aerobic exercise 45-60 minutes 4-5 times weekly. Avoid tobacco and illicit drugs as well as using moderation with alcohol intake less than 1-2 8 oz beverages daily. This lifestyle behavior pattern will lead to less health conditions and longer life span. If BMI greater than 25 weight watchers or dietary consult advised. Questions have been answered. Patient appears to understand instructio ns, but if you have any further questions call or respond to this emailPap/h pv sent STD Screen declined Genetic Screen discussed Colon Screen UTD PCP Dexa Screen na Routine Labs UTD PCPMammo ordered Contracept ion care management [id number] Z30.9 Happy on this therapyWe will continue it for now since she is doing well while finishing chemo for Throat/Nec k cancer.Cahdd l re-evaluat e the need next yearHelpin g with night sweats.Antolin ples given [id number] Solo Castañeda MD [facility] [address] [address] 04/19/2022 11:14:27 04/21/2022 13:20:41 Endometrium thickened [id number] R93.89 this patient is a 56-year-ol d female who was found to have thickened endometriu m on a pelvic ultrasound . She was having pelvic pain. reviewed ultrasound report, interprete d the report, discuss the significan ce of a poor with the patient. Explained endometria l cancer her to the patient. Spent over 20 minutes with the patient. More than 50% counseling we then agreed to perform the procedure. Discussed these findings and agreed perform endometria l biopsy today. She tolerated the biopsy well. We will follow-up on the pathology results and inform her of the results. [id number] Rosey Looney , [facility] [address] [address] 10/28/2022 16:17:41 10/28/2022 16:55:39 Gynecologic examination [id number] Z01.419 Z11.51 Take Calcium with Vitamin D 12-1500mg daily. Do monthly self breast exams. It is advised to get annual flu shot in the fall and she could obtain at [facility] or [facility] care clinic. If you haven't received the Tdap vaccine in the last 10 years you should obtain one as well. Have mammogram yearly, bone density every 2-3 years and colonoscop y every 5-10 years depending on findings and history. Engage in daily exercise of low impact aerobic exercise 45-60 minutes 4-5 times weekly. Avoid tobacco and illicit drugs as well as using moderation with alcohol intake less than 1-2 8 oz beverages daily. This lifestyle behavior pattern will lead to less health conditions and longer life span. If BMI greater than 25 weight watchers or dietary consult advised. Questions have been answered. Patient appears to understand instructio ns, but if you have any further questions call or respond to this emailPap/h pv sentSTD Screen declinedGe netic Screen discussedC olon Screen UTD PCPDexa Screen naRoutine Labs UTD PCPMammo wnl 2022 PCP Screening mammography 24 [id number] Z12.31 order for next year [id number] Solo Castañeda MD [place] [address] [address] 11/02/2023 16:27:55 11/03/2023 09:34:30 Gynecologic examination [id number] Z01.419 Annual gynecologi juan exam performed. Patient will come back in a year unless there are new symptoms. Suggest Calcium with Vitamin D if not eating in diet. Patient advised to get annual flu shot. Recommend yearly physicals and preform monthly breast exams. Genetic testing is available for patients with family history of cancer. Engage in safe sexual practices, use condoms. Encouraged to have daily exercise. Avoid tobacco and illicit drugs, moderation of alcohol. If BMI greater than 25 dietary consult advised. If you have any questions please call or email. mammogram- scheduled colon cancer screening - to schedule DEXA scan- na Pap smear- today laboratory evaluation - done Health Concerns Section Related Observation LastModified by Organization Detai ls LastModified Time None Recorded Concern Status LastModified by Organization Details LastModified Time None Recorded Advance Directives Directive Y: Payers Encounter Date Sequence Insurance Name Policy Number Policy Wheat[place] Covered Member ID Wheat[place] Member ID Guarantor Name 03/15/2021 1 [place] [id number] Iraida Perdomo [id number] Iraida Denson 08/15/2021 1 [place] [id number] Iraida Jackson Conor [id number] Iraida Jackson Jarett 04/19/2022 1 [facility] BENEFITS PLAN [id number] Bharat Denson [id number] OI Iraida Jackson Jarett 10/28/2022 1 [facility] [employer] [id number] Bharat Toscanobs [id number] OI Iraida Jackson Denson 11/02/2023 1 [facility] [employer] [id number] Bharat Toscanobs [id number] OI Iraida Jackson Jarett Notes Date Note Type Note Provider Name and Address Organization Details Recorded Time 03/15/2021 text/html Here today to se e if she can return to using SLYND vs older POP.She has more spotting on micronor vs when she was using SLYND.Her insurance doesn't cover slynd. 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 Rosey Looney ABISAI- [address], [place], [address], [facility] 03/15/2021 17:03:44 08/15/2021 text/html Annual GYNReport ed bypatient.Menstrual cycle:Normal menses (On SLYND. NO cycle on this therapy) Urinary symptoms:No hematuria; No incontinence Vulva:No genital lesion Vagina:Normal vaginal discharge Breast:No breast pain; No breast lump; No nipple discharge Current Contraception:Satisf ied with current contraception; Oral contraceptives (POP only) Sexual complaints:No sexual complaints; No pain during intercourse; Normal libido Menopausal Symptoms:No menopausal symptoms; Normal vaginal lubrication Psychological symptoms:No depression; No anxiety; No PMDD Preventive measures:Encourage self breast examination; Encourage regular exercise; Encourage no tobacco use; Encourage regular mammograms starting age 40; History of abnormal pap smear/cervical dysplasia; Needs to schedule mammogram; Up to date on colonoscopy screening Rosey Looney ELLE [address], [place], [address], [facility] 08/15/2021 14:46:15 04/19/2022 text/html this patient is a 56-year-old female who was found to have thickened endometrium on a pelvic ultrasound. She was having pelvic pain. Discussed these findings and agreed perform endometrial biopsy today. She tolerated the biopsy well. We will follow-up on the pathology results and inform her of the results. Solo Castañeda MD [address], [place], [address], [facility] 04/19/2022 12:23:04 10/28/2022 text/html Annual Data Processing Equipment Repairer Post-MenopausalRepor cristian bypatient.Menopausal Symptoms:no menopausal symptoms; normal vaginal lubrication Vaginal Bleeding:history of menopause having occurred; no history of post menopausal bleeding Urinary Symptoms:no hematuria; no incontinence; no nocturia; no urinary frequency Vulva:no genital lesion; no vulvar atrophy Vagina:normal vaginal discharge; no vaginal atrophy Breast:no breast lump; no nipple discharge; no breast pain Sexual Complaints:no sexual complaints Psychological Symptoms:no depression; no anxiety Preventive Measures:encourage regular mammograms starting age 40; encourage self breast examination; encourage regular exercise; encourage no tobacco use; mammogram performed within the past year; history of recent colonoscopy [facility] [address], [place], [address], [facility] 10/28/2022 16:55:13 11/02/2023 text/html Annual GYNReport ed bypatient.History:no gynecologic complaints Menstrual cycle:Normal menses Urinary symptoms:No hematuria Vulva:No genital lesion Vagina:Normal vaginal discharge Breast:No breast pain; No breast lump Sexual complaints:No sexual complaints; No pain during intercourse Menopausal Symptoms:No menopausal symptoms Psychological symptoms:No depression; No anxiety Preventive measures:Encourage self breast examination; Encourage regular exercise Solo Castañeda MD [address], [place], [address], [facility] 11/02/2023 18:13:40 OBGyn Episode No OBEpisode recorded.
--- NOTE | 2024-07-11 09:09 | ED_ITS ---
HPI - Skin/Abscess/Foreign Bdy General Chief complaint: Skin/Abscess/Foreign Body Stated complaint: Rash Time Seen by Provider: 07/11/24 09:09 Source: patient Mode of arrival: ambulatory Limitations: no limitations History of Present Illness HPI narrative: 58 y/o female presented for c/o poison dina rash to face, arms, and thighs. Rash started after clearing weeds 2 days ago. Denies lip, tongue, or throat swelli ng, shortness of breath or wheezing. Denies changes to soap, detergent, lotion, or any other exposures. No one else in the house or any contacts with similar symptoms. Took Children's Benadryl. Related Data Home Medications ?Medication ?Instructions ?Recorded ?Confirmed ?Last Taken ?Type terbinafine HCl 250 mg tablet mg 07/11/24 Unknown History Allergies Allergy/AdvReac Type Severity Reaction Status Date / Time ciprofloxacin Allergy Unknown rash Verified 07/11/24 09:13 famotidine Allergy Unknown Rash Verified 07/11/24 09:13 Quinolones Allergy Unknown Unknown Verified 07/11/24 09:13 Review of Systems Review of Systems: CONSTITUTIONAL: Denies body aches, fever, chills, or sweats. EYES: Denies visual changes, redness, or discharge. ENT: Denies rhinorrhea, congestion CARDIOVASCULAR: Denies chest pain, palpitations, or edema. RESPIRATORY: Denies cough or dyspnea. GASTROINTESTINAL: Denies abdominal pain, nausea, vomiting, or diarrhea. SKIN: per HPI MUSCULOSKELETAL: Denies back pain, joint pain, or myalgia. NEUROLOGIC: Denies headache, numbness, tingling, or weakness. PMFSH Past Medical History Medical History Cervical cancer Hypomagnesemia Cancer of head and neck HPV Gastroesophageal reflux disease Essential hypertension Mild episode of recurrent major depressive disorder Mixed hyperlipidemia Prediabetes Fibromyalgia Sleep apnea Vision loss Surgical History Surgical History H/O lymph node excision right neck with chemo therapy and radiation treatment History of conization of cervix Hx of tonsillectomy Family History Family History Mother Hypertension Cancer Father Family history of diabetes mellitus in first degree relative Social History Social History Smoking status: Never smoker Second hand tobacco smoke exposure: No Alcohol intake: current Alcohol use details: rare Substance use: never Substance use type: does not use Lack of Transportation: No Lack of Food: Never True Current Housing: I Have Housing Concerned About Future Housing: No Difficulty Paying Gas/Electric Bills: No Difficulty Paying for Meds: No Currently Unemployed: No Education: Master's Degree or Higher Difficulty w/ Childcare or Family Care: No Living arrangements: with family Occupation/Education: occupation Additional occupation/education comments: Teacher Gender identity (if verbalized by the patient): Female Sexual Orientation (if Verbalized by the Patient): Straight or Heterosexual Spiritual care concerns: No Agree to blood products: Yes Comments At time of signature, I have reviewed and agree with nursing past medical, surgical, social and family history unless otherwise noted. Please see nursing chart for further information. There is no relevant family history pertinent to the presenting complaint Exam Narrative: GENERAL: Well-appearing HEAD: Normocephalic, atraumatic. EYES: conjunctivae clear, and EOMI. Bilateral upper lid swelling. ENT: Mucous membranes moist. Oropharynx without edema, erythema or lesions. NECK: Supple. No lymphadenopathy CHEST: Clear to auscultation. HEART: Regular rate and rhythm. SKIN: Warm, dry. Pale red slightly raised rash c/w contact dermatitis to left neck, bilateral arms. NEURO: Alert and oriented x3. Course Course Emergency Course: Patient is aware of diagnosis, understands and agrees to treatment plan. Anticipatory guidance given. Patient agrees to follow-up as directed and is aware of reasons to seek care at the emergency department. Portions of this record may have been created with voice recognition software Level of Care: Express Care Visit Vital Signs Vital signs: Reviewed MDM - Skin/Abscess/Foreign Bdy MDM Narrative Medical decision making narrative: Discussed physical exam findings c/w contact dermatitis. Advised supportive measures and signs/symptoms to go to the ER. Pt is appropriate for outpt treatment and f/u. Differential Diagnosis Differential diagnosis: Likely abscess of skin or subcutaneous tissue, viral exanthem, dermatophytosis, urticaria, herpes zoster, cellulitis, eczema, insect bites, impetigo and contact dermatitis Discharge Plan Discharge Clinical Impression: Contact dermatitis Patient Disposition: Home Condition: Critical Instructions: Antibiotic Form, Poison Dina (ED) Additional Instructions: Take steroids as directed. Benadryl or Zyrtec/Claritin according to package directions as needed Cool compresses to the sites of itching, avoid hot water. Avoid scratching to reduce the risk of infection Follow up with your primary care provider as needed in 1 week Go to the ER for worsening symptoms or concerns (lip, tongue, throat swelling/itching, trouble breathing etc) Patient Language: Arabic Prescriptions: New prednisone 20 mg tablet 20 mg PO DAILY Qty: 12 0RF Rx Instructions: take 3 tablets daily for 2 days, then 2 tablets daily for 2 days then 1 tablet daily for 2 days No Action triamcinolone acetonide 0.1 % ointment 1 applic topical BID Qty: 80 0RF Rx Instructions: To rash never apply to the face terbinafine HCl 250 mg tablet calcium citrate-vitamin D3 [Calcium Citrate + D] 315 mg-5 mcg (200 unit) tablet 1 tablet PO DAILY Qty: 90 3RF calcium polycarbophil [FiberCon] 625 mg tablet 1,250 mg PO DAILY Qty: 180 3RF eyjptawxxvsa-aoji-lldsx acid 18-400 mg-mcg tablet 1 tablet PO DAILY Qty: 90 3RF omega-3 fatty acids 1,000 mg capsule 1,000 mg PO DAILY Qty: 90 3RF cyanocobalamin (vitamin B-12) [Vitamin B-12] 1,000 mcg tablet See Rx Instructions .ROUTE .COMPLEX Qty: 90 3RF Dose Instruction: TAKE 1 TABLET BY MOUTH DAILY Rx Instructions: TAKE 1 TABLET BY MOUTH DAILY duloxetine 60 mg capsule,delayed release(DR/EC) 60 mg PO DAILY Qty: 90 1RF nifedipine 30 mg tablet extended release 24hr See Rx Instructions .ROUTE .COMPLEX Qty: 90 1RF Dose Instruction: TAKE 1 TABLET BY MOUTH EVERY DAY Rx Instructions: TAKE 1 TABLET BY MOUTH EVERY DAY pantoprazole 40 mg tablet,delayed release (DR/EC) 40 mg PO BID Qty: 180 3RF trazodone 100 mg tablet 100 mg PO QHS PRN (Reason: insomnia) Qty: 90 1RF valacyclovir 500 mg tablet 500 mg PO DAILY Qty: 90 3RF loratadine [Allergy Relief (loratadine)] 10 mg tablet 10 mg PO DAILY Qty: 90 3RF bupropion HCl 300 mg tablet extended release 24 hr 300 mg PO QAM Qty: 90 1RF amitriptyline 25 mg tablet 25 mg PO QHS Qty: 90 1RF Follow-up/Referrals: Naa Elizondo MD [Primary Care Provider] - Time of Disposition: 09:21
[2024-07-11 09:11] VITALS: BP 128/70; PULSE 89; RESP 16; TEMP 36.6; O2SAT 100
== END 2024-07-11 09:24 | disposition home or self-care (01) ==
PROVIDERS: Emergency Provider Nurse Practitioner Family; PCP Family Medicine
DX: L25.9 Unspecified contact dermatitis, unspecified cause (principal); I10 Essential (primary) hypertension; K21.9 Gastro-esophageal reflux disease without esophagitis; E78.2 Mixed hyperlipidemia; R73.03 Prediabetes; M79.7 Fibromyalgia; Z85.41 Personal history of malignant neoplasm of cervix uteri; Z85.9 Personal history of malignant neoplasm, unspecified
CPT/HCPCS: 99213; G0463

== ENCOUNTER 2024-12-25 19:46 | Emergency (ER) | payer OTHER, SELFPAY ==
--- NOTE | 2024-12-25 19:46 | ED_ITS ---
HPI - Female Genitourinary General Chief complaint: Urogenital-Female Stated complaint: Urinary Problem Time Seen by Provider: 12/25/24 19:46 Source: patient Mode of arrival: ambulatory Limitations: no limitations History of Present Illness HPI Narrative: Iraida is a 59 year old female patient presenting to the clinic today with c/o possible UTI x1 day. She reports burning, frequency, or urgency with urination. Has taken Azo for her symptoms. No fever, chills, back pain, low abdomen pain, or back pain. Related Data Home Medications ?Medication ?Instructions ?Recorded ?Confirmed ?Last Taken ?Type aripiprazole 5 mg tablet mg 12/25/24 Unknown History Allergies Allergy/AdvReac Type Severity Reaction Status Date / Time ciprofloxacin Allergy Unknown rash Verified 12/25/24 19:53 famotidine Allergy Unknown Rash Verified 12/25/24 19:53 Quinolones Allergy Unknown Unknown Verified 12/25/24 19:53 Review of Systems Review of Systems: Pertinent positives per HPI. Patient denies any fever, chills, rash, headache, visual changes, dizziness, cough, runny nose, sore throat, shortness of breath, chest pain, palpitations, nausea, vomiting, diarrhea, constipation, abdominal pain. [facility] Past Medical History Medical History Cervical cancer Hypomagnesemia Cancer of head and neck HPV Gastroesophageal reflux disease Essential hypertension Mild episode of recurrent major depressive disorder Mixed hyperlipidemia Prediabetes Fibromyalgia Sleep apnea Vision loss Surgical History Surgical History H/O lymph node excision right neck with chemo therapy and radiation treatment History of conization of cervix Hx of tonsillectomy Family History Family History Mother Hypertension Cancer Father Family history of diabetes mellitus in first degree relative Social History Social History Social History: Caffeine-soda Second hand tobacco smoke exposure: No Alcohol intake: current Alcohol use details: rare Substance use: never Substance use type: does not use Lack of Transportation: No Lack of Food: Never True Current Housing: I Have Housing Concerned About Future Housing: No Difficulty Paying Gas/Electric Bills: No Difficulty Paying for Meds: No Currently Unemployed: No Education: Master's Degree or Higher Difficulty w/ Childcare or Family Care: No Living arrangements: with family Occupation/Education: occupation Additional occupation/education comments: Teacher Gender identity (if verbalized by the patient): Female Sexual Orientation (if Verbalized by the Patient): Straight or Heterosexual Spiritual care concerns: No Agree to blood products: Yes Comments At the time of my signature, I reviewed and agree with the nursing past medical, surgical, social, and family history. There is no relevant family history pertinent to the patient complaint. Exam Narrative: General: Well-developed, well nourished, in no apparent distress. Head: Normocephalic, atraumatic. Cardio: Regular rate and rhythm, s1 and s2 normal, no murmur appreciated. Resp: Clear to auscultation bilaterally, no rhonchi, rales, wheezing or rubs. Abdomen: Soft, pliable, bowel sounds present in all quadrants, non-tender to palpation, no organomegly, no CVAT tenderness. Course Course Emergency Course: Portions of this record may have been created with voice recognition software. Level of Care: Express Care Visit Vital Signs Vital signs: Vital Signs Temperature 36.8 C 12/25/24 19:49 Pulse Rate 92 12/25/24 19:49 Respiratory Rate 18 12/25/24 19:49 Blood Pressure 101/65 12/25/24 19:49 Pulse Oximetry 98 12/25/24 19:49 Oxygen Delivery Room Air 12/25/24 19:49 Temperature 36.8 C 12/25/24 19:49 Pulse Rate 92 12/25/24 19:49 Respiratory Rate 18 12/25/24 19:49 Blood Pressure 101/65 12/25/24 19:49 Pulse Oximetry 98 12/25/24 19:49 Oxygen Delivery Room Air 12/25/24 19:49 Vital signs reviewed MDM - Female Genitourinary MDM Narrative Medical decision making narrative: At the time of visit patient is resting comfortably on the exam table. Patient appears to be nontoxic. C/o possible UTI x1 day. She reports burning, frequency, or urgency with urination. Has taken Azo for her symptoms. No fever, chills, back pain, low abdomen pain, or back pain. Urine dip ordered. labs: Urine dip performed- positive for leukocytes, nitrates, protein, and blood Plan: I suspect patient has a UTI. Will place patient on Bactrim. Will send urine for culture. Supportive measures were discussed with the patient and they voiced understanding discharge instructions and agrees to treatment plan. Return precautions reviewed Differential Diagnosis Differential diagnosis: Likely urinary tract infection and cystitis Discharge Plan Discharge Clinical Impression: UTI (urinary tract infection) Qualifiers: Urinary tract infection type: acute cystitis Hematuria presence: with hematuria Qualified Code(s): N30.01 - Acute cystitis with hematuria Patient Disposition: Home Condition: Stable Instructions: Antibiotic Form, Urinary Tract Infection in Women (ED) Additional Instructions: We will send urine for culture Take Bactrim as prescribed May continue AZO as directed. Increase fluids and stay well hydrated Wipe front to back. May use wet wipes. Avoid tub baths If sexually active- pee before and after intercourse. Wear cotton panties Avoid tight clothing up against the genitals Follow up with your PCP in 1 week if symptoms persist. Patient Language: Maltese Prescriptions: New sulfamethoxazole-trimethoprim [Bactrim DS] 800-160 mg tablet 1 tablet PO Q12H 5 Days Qty: 10 0RF No Action aripiprazole 5 mg tablet calcium citrate-vitamin D3 [Calcium Citrate + D] 315 mg-5 mcg (200 unit) tablet 1 tablet PO DAILY Qty: 90 3RF calcium polycarbophil [FiberCon] 625 mg tablet 1,250 mg PO DAILY Qty: 180 3RF xfavzafuorqm-bkcv-envab acid 18-400 mg-mcg tablet 1 tablet PO DAILY Qty: 90 3RF omega-3 fatty acids 1,000 mg capsule 1,000 mg PO DAILY Qty: 90 3RF cyanocobalamin (vitamin B-12) [Vitamin B-12] 1,000 mcg tablet See Rx Instructions .ROUTE .COMPLEX Qty: 90 3RF Dose Instruction: TAKE 1 TABLET BY MOUTH DAILY Rx Instructions: TAKE 1 TABLET BY MOUTH DAILY pantoprazole 40 mg tablet,delayed release (DR/EC) 40 mg PO BID Qty: 180 3RF valacyclovir 500 mg tablet 500 mg PO DAILY Qty: 90 3RF loratadine [Allergy Relief (loratadine)] 10 mg tablet 10 mg PO DAILY Qty: 90 3RF bupropion HCl 300 mg tablet extended release 24 hr 300 mg PO QAM Qty: 90 1RF amitriptyline 25 mg tablet 25 mg PO QHS Qty: 90 1RF duloxetine 60 mg capsule,delayed release(DR/EC) 60 mg PO DAILY Qty: 90 1RF nifedipine 30 mg tablet extended release 24hr See Rx Instructions .ROUTE .COMPLEX Qty: 90 1RF Dose Instruction: TAKE 1 TABLET BY MOUTH EVERY DAY Rx Instructions: TAKE 1 TABLET BY MOUTH EVERY DAY buspirone 5 mg tablet 5 mg PO TID PRN (Reason: stress) Qty: 270 1RF trazodone 100 mg tablet 100 mg PO QHS PRN (Reason: insomnia) Qty: 90 1RF Zepbound 5 mg/0.5 mL pen injector 5 mg subcut WEEKLY Qty: 2 0RF Follow-up/Referrals: Mikhail,MD Naa [Primary Care Provider, [facility]] Time of Disposition: 20:00 Quality NIHSS Nursing Documentation ED NIHSS nursing documentation: reviewed/agree
[2024-12-25 19:49] VITALS: BP 101/65; PULSE 92; RESP 18; TEMP 36.8; O2SAT 98
--- OUTSIDE RECORDS SUMMARY | 2024-12-25 19:49 | XMS_ITS | Encounter Summary ---
Author Organization [facility] Address [address] [place] [address] Care Team Providers Care Thinner Sprayer Name Role Phone Naa Elizondo MD Primary Care Provider [phone] Encounter Details Date Type Department Care Team (Late st Contact Info) Description 06/01/2020 Lab Requisition [facility] [address] [place] [address] Enzo Kerns MD [address] [place] [id number] Enlarged lymph nodes, unspecified Social History Tobacco Use Types Packs/Day Years Used Date Smoking Tobacco: Never Alcohol Use Standard Drinks/Week Comments Yes 0 (1 standard drink = 0.6 oz pur e alcohol) Comments Unknown Sex and Gender Information Value Date Recorded Sex Assigned at Not on file 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 Gender Identity Not on file Sexual Orientation Not on file documented as of this encounter Plan of Treatment Upcoming Encounters Date Type Department Care Team (Late Contact Info) Description 12/30/2024 3:00 PM CONE OPERATOR Office Visit [facility] - ENT [address] [place] [address] Zander Bacon MD [address] [place] [address] [address] [place] [address] documented as of this encounter Procedures Procedure Name Priority Date/Time Associated Diagnosis Comments FLOW CYTOMETRY TISSUE PANEL Routine 06/01/2020 8:43 AM CDT Enlarged lymph nodes, unspecified documented in this encounter Results * FLOW CYTOMETRY TISSUE PANEL (06/01/2020 8:43 AM CDT) Case Report Flow Cytometry Case: [id number] Authorizing Provider: Enzo Kerns MD Collected: 06/01/2020 08:43 AM Ordering Location: [facility] Pathology Lab Received: 06/01/2020 12:28 PM Pathologist: Anupam Pardo MD Specimen: RIGHT NECK MASS 06/01/2020 3:40 PM CDT [facility] Final Diagnosis Right neck mass, flow cytometry: - No clonal B-cell or aberrant T-cell population identified 06/01/2020 3:40 PM CDT [facility] at 1540 CDT Flow Cytometry [...] histology is recommended. 06/01/2020 3:40 PM CDT [facility] Flow Cytometry Results Differential Result Comment Flow Cell Count /uL 800 Total Viability % 75.0 Lymphocytes % 82 Dim CD45 Region % 4 Monocytes % 5 Granulocytes % 7 06/01/2020 3:40 PM CDT [facility] Reason for test Enlarged lymph nodes, unspecified 06/01/2020 3:40 PM CDT [facility] Client Specimen ID # [id number] 06/01/2020 3:40 PM CDT [facility] Number of markers 16 were performed. A-2 Flow CD2 A-3 Flow CD3 A-4 Flow CD4 A-8 Flow CD1a A-10 Flow CD10 A-12 Flow CD20 A-13 Flow CD23 A-5 Flow CD5 A-6 Flow CD7 A-7 Flow CD8 A-9 Flow CD30 A-11 Flow CD19 A-14 Flow CD34 A-15 Flow CD45 A-16 [place]+CD19+ A-17 Lambda+CD19+ 06/01/2020 3:40 PM CDT [facility] Disclaimer Test performed at [facility], [address] [place], [place], [address]. *The established laboratory minimum viability is 70%. [...] complexity clinical testing. 06/01/2020 3:40 PM CDT [facility] Embedded Images 3:40 PM CDT [facility] Pathology/Cytolo gy 06/01/2020 8:43 AM CDT 06/01/2020 12:28 PM CDT Enzo Kerns MD LAB - PATHOLOGY/CYTOLOGY ORDER KINDRA Final Result [facility] [address] [place] [address]. [place] [address], [facility] [phone] documented in this encounter Visit Diagnoses Diagnosis Enlarged lymph nodes, unspecified documented in this encounter Additional Health Concerns Infection Onset Date Last Indicated Resolved Time COVID-19 Under Investigation 07/13/2020 07/13/2020 07/13/2020 7:54 PM CDT documented as of this encounter Care Teams Thinner Sprayer Relationship Specialty Start Date End Date Naa Elizondo MD [address] [place] [address] PCP - General Family Medicine 08/01/20 documented as of this encounter
--- OUTSIDE RECORDS SUMMARY | 2024-12-25 19:49 | XMS_ITS | Clinical Summary ---
Author Organization [facility] Address [address] [place] [address] Care Team Providers Care Plant Cytologist Name Role Phone Naa Elizondo MD Primary Care Provider [phone] Source Comments [facility],non-owned Affiliates and Associated Physician Practices is amultiple site organization consisting of ambulatory clinics and hospital sitesin [place], [place], [place] and [place]. This disclosure is being madepursuant to the Care Everywhere program and may not contain all information available regarding this patient. 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 Cancer Staging:Clinical stage from 08/15/2020:Stage I(cT1, cN1, cM0) - Signed by Zander Bacon MD on 08/15/2020 Immunizations Immunization Administration Dates Next Due COVRageTank PRIMARY 18+YR 04/20/2020 Covid Pfizer primary monovalent [...] on file Legal Sex Female 6:04 PM ASSOCIATE TEAM PHYSICIAN Gender Identity Not on file Sexual Orientation Not on file Last Filed Vital Signs Vital Sign Reading Time Taken Comments Blood Pressure 120/77 07/15/2024 2:32 PM CDT Pulse 88 07/15/2024 2:32 PM CDT Temperature 36.9 C (98.4 F) 06/28/2021 3:31 PM CDT Respiratory Rate 18 10/11/2021 3:55 PM CDT Oxygen Saturation 99% 10/11/2021 3:55 PM CDT Inhaled Oxygen Concentration - - Weight 84.9 kg (187 lb 3.2 oz) 07/15/2024 2:32 P M CDT Height 162.6 cm (5' 4) 07/15/2024 2:32 PM CDT Body Mass Index 32.13 07/15/2024 2:32 PM CDT Plan of Treatment Upcoming Encounters Date Type Department Care Team (Late st Contact Info) Description 12/30/2024 3:00 PM ASSOCIATE TEAM PHYSICIAN Office Visit [facility] - [facility]NT [address] [place] [phone] Zander Bacon MD [address] [place] [address] [address] DE[facility] [place] [address] Health Maintenance Due Date Last Done Comments [...] 11/17/2017 ZOSTER VACCINE (1 of 2) 11/17/2017 DEPRESSION SCREENING 02/17/2024 COVID-19 VACCINE (3 - 2024- season) 2024 02/07/2021, 04/20/2020 INFLUENZA VACCINE (#1) 2024 11/16/2020 PAP SMEAR 10/28/2025 10/28/2022, 10/17, 08/15/2021, Additional history exists SCREENING FOR DIABETES 07/05/2026 , 07/06/2023, 07/18/2020, [...] COMPREHENSIVE METABOLIC PANEL (07/06/2023 8:51 AM CDT) Pathologist [facility] BUN 10 7 - 26 mg/dL 07/06/2023 9:50 AM [facility] Creatinine 0.79 0.56 - 0.96 mg/dL 07/06/2023 9:50 AM [facility] Sodium 145 136 - 145 mmol/L 07/06/2023 9:50 AM [facility] Potassium 4.2 3.5 - 4.5 mmol/L 07/06/2023 9:50 AM [facility] Chloride 109(H) 98 - 107 mmol/L 07/06/2023 9:50 AM [facility] CO2 28 22 - 29 mmol/L 07/06/2023 9:50 AM [facility] Glucose 97 70 - 115 mg/dL 07/06/2023 9:50 AM [facility] Calcium 9.4 8.4 - 10.2 mg/dL 07/06/2023 9:50 AM [facility] Protein Total 6.7 6.0 - 8.3 g/dL 07/06/2023 9:50 AM [facility] Albumin 3.7 3.4 - 5.0 g/dL 07/06/2023 9:50 AM [facility] Bilirubin Total 0.3 0.2 - 1.2 mg/dL 07/06/2023 9:50 AM [facility] Alkaline Phosphatase 104 40 - 150 U/L 07/06/2023 9:50 AM [facility] ALT 20 5 - 55 U/L 07/06/2023 9:50 AM [facility] AST 15 5 - 34 U/L 07/06/2023 9:50 AM [facility] Anion Gap 8 6 - 16 07/06/2023 9:50 AM [facility] BUN/Creatinine Ratio 13 7 - 23 07/06/2023 9:50 AM [facility] Osmolality Calculated 299(H) 275 - 295 mOsm/kg 07/06/2023 9:50 AM [facility] Albumin/Globulin Ratio 1.2 1.1 - 2.3 07/06/2023 9:50 AM [facility] eGFR by CKD-EPI 88(L) >=90 mL/min/1.7 3 m2 07/06/2023 9:50 AM [facility] Blood BLOOD SPECIMEN / Unknown Lab Venipuncture / Unknown 07/06/2023 8:51 AM CDT 07/06/2023 9:10 AM CDT Naa Elizondo MD LAB - CHEMISTRY ORDERABLES Final Result Performing Organization Address City/[facility]/ZIP Co de Phone Number [facility] [address] [place] [phone], [place] [phone] * LIPID PROFILE (07/06/2023 8:51 AM T) [facility] Cholesterol Total 162 <200 mg/dL 07/06/2023 9:39 AM [facility] HDL 45 >40 mg/dL 07/06/2023 9:39 AM [facility] Comment: ATP III Classification of HDL Cholesterol: <40 mg/dL: Considered a major risk factor. >60 mg/dL: Considered a negative risk factor. LDL Calculated 89 <100 mg/dL 07/06/2023 9:39 AM [facility] Comment: ATP III Classification of LDL Cholesterol: <100 mg/dL: Optimal 100 - 129 mg/dL: Near Optimal/Above Optimal 130 - 159 mg/dL: Borderline High 160 - 189 mg/dL: High >190 mg/dL: Very High Triglycerides 138 <150 mg/dL 07/06/2023 9:39 AM [facility] Comment: ATP III Classification of Triglycerides: <150 mg/dL: Normal 150 - 199 mg/dL: Borderline High 200 - 400 mg/dL: High >500 mg/dL: Very High Blood BLOOD SPECIMEN / Unknown Lab Venipuncture / Unknown 07/06/2023 8:51 AM CDT 07/06/2023 9:10 AM CDT us Naa Elizondo MD LAB - CHEMISTRY ORDERABLES Final Result Performing Organization Address City/[facility]/ZIP Co de Phone Number [facility] [address] [place] [phone], [place] [phone] from Last 3 Months or Most Recently Relevant to Health Maintenance Insurance [employer] acquired [employer] Address: [id number] [place] [address] [employer] Address: [address] [place] [address] Advance Directives Documents on File Type Date Recorded Patient Science Consultant Expl anation Adv Directive/Living Will/POA 07/28/2020 1:04 PM * Full Code (Latest Code Status on File) Date Activated Date Inactivated Comments 07/17/2020 4:03 PM 07/19/2020 11:03 AM Care Teams Plant Cytologist Relationship Specialty Start Date End Date Naa Elizondo MD [address] [place] [address] PCP - General Family Medicine 08/01/20
--- OUTSIDE RECORDS SUMMARY | 2024-12-25 19:49 | XMS_ITS ---
Author Organization [facility] Address [address] [place] [address] Phone Care Team Providers Care Dry Chain Puller Name Role Phone Naa Elizondo MD Primary Care Provider [phone] Zander Bacon MD Unavailable [phone] Enzo Funez MD Unavailable [phone] Troy Crump MD Unavailable [phone] Active Problems Problem Noted Date Diagnosed Date Other specified anxiety disorders 11/14/2024 Neck stiffness 11/14/2024 Lesion of hard palate 05/17/2024 Overview (05/17/2024): [...]
--- OUTSIDE RECORDS SUMMARY | 2024-12-25 19:49 | XMS_ITS | Encounter Summary ---
Author Organization [facility] Address [address] [place] [address] Care Team Providers Care Passenger Service Manager Name Role Phone Naa Elizondo MD Primary Care Provider [phone] Encounter Details Date Type Department Care Team (Late st Contact Info) Description 12/22/2024 Orders Only [facility] at [address] [place] [address] Naa Elizondo MD [address] [place] [address] [address] [place] [address] Thyroid nodule (Primary Dx) Social History Tobacco Use Types Packs/Day Years Used Date Smoking Tobacco: Never Smokeless Tobacco: Never Comments Unknown Sex and Gender Information Value Date Recorded Sex Assigned at Not on file Legal Sex Female 5:42 PM CDT Gender Identity Not on file Sexual Orientation Not on file documented as of this encounter Plan of Treatment Not on file documented as of this encounter Visit Diagnoses Diagnosis Thyroid nodule- Primary Nontoxic uninodular goiter documented in this encounter Care Teams Passenger Service Manager Relationship Specialty Start Date End Date Naa Elizondo MD PCP - General Family Medicine 10/28/17 documented as of this encounter
--- OUTSIDE RECORDS SUMMARY | 2024-12-25 19:49 | XMS_ITS | Clinical Summary ---
Author Organization [address] Address [address] [place] [phone] Care Team Providers Care Yarn Weigher Name Role Phone Naa Elizondo MD Primary Care Provider [phone] Allergies Active Allergy Reactions Criticality Noted Date [...] mg by mouth daily. Active Active Problems Problem Noted Date Diagnosed Date Thyroid nodule 12/22/2024 Encounters Date Type Department Care Team Description 12/22/[address] [facility] Res[facility] at [address] [place] [address] Naa Elizondo MD Thyroid nodule (Primary Dx) 11/15/2024 3:43 PM CDT - 11/15/2024 11:59 PM CDT Hospital Encounter [facility] [address] [place] [address] Malignant neoplasm of head, face and neck (HCC); Cervicalgia Discharge Disposition: Discharge to home or self [...] Comments Blood Pressure 112/60 12/28/2021 9:43 AM CL[facility] Pulse 102 12/28/2021 9:43 AM [facility] Temperature 37 C (98.6 F) 12/28/2021 9:43 AM [facility] Respiratory Rate 16 12/28/2021 9:43 AM [facility] Oxygen Saturation 98% 12/28/2021 9:43 AM [facility] Inhaled Oxygen Concentration - - Weight 81.6 kg (180 lb) 12/28/2021 9:43 AM CLOTH FEEDER Height 162.6 cm (5' 4) 12/28/2021 9:43 AM [facility] FE[facility] Body Mass Index 30.9 12/28/2021 9:43 AM CLOTH FEEDER Plan of Treatment Health Maintenance Due Date Last Done Comments Breast Cancer Screening-Mammogram 1965 Cervical Cancer Screening 1965 Depression Screening 1965 Hepatitis C Screening 1965 DTaP/Tdap/Td Vaccine (1 - Tdap) 11/17/1978 Hepatitis B Screening 11/17/1985 Regular Well Visit/Exam 18-64 11/17/1985 Zoster Vaccine (1 of 2) 11/17/2017 Influenza Vaccine (#1) 2024 , 11/15/2019, 11/24/2018, Additional history exists Colon Cancer Screening-Colonoscopy 06/08/2034 06/08/2024, 03/03/2019 Colon Cancer Screening-CT Colonography Discontinued 06/08/2024, 02/25/2023, 03/03/2019 Colon Cancer Screening-DNA Stool Discontinued 06/08/2024, 02/25/2023, 03/03/2019 Colon Cancer Screening-FIT Discontinued 06/08, 02/25/2023, 03/03/2019 Colon Cancer Screening-Sigmoidoscopy Discontinued 06/08/2024, 02/25/2023, 03/03/2019 Pneumococcal vaccine <65 Aged Out No longer eligible based on patient's age to complete this topic Procedures Procedure Name Priority Date/Time Associated Diagnosis Comments US SOFT TISSUE HEAD NECK Schedule Routine, Read Routine (OP Routine) 11/15/2024 4:07 PM CDT Malignant neoplasm of head, face and neck (HCC) Cervicalgia CT VIRTUAL COLONOSCOPY DIAGNOSTIC WO CONTRAST Schedule Routine, Read Routine (OP Routine) 06/08/2024 8:48 AM CDT Screening for colon cancer from Last 3 Months or Most Recently Relevant to Health Maintenance Results * US Head Neck Soft Tissue (11/15/2024 4:07 PM CDT) Anatomical Region Laterality Modality Head and Neck N/A Ultrasound 11/19/2024 1:38 PM CDT Narrative 11/19/2024 1:41 PM CDT EXAM DESCRIPTION: US SOFT TISSUE HEAD NECK REASON FOR STUDY: malignant neoplasm of head, face, and neck; cervicalgia 2020 right head neck cancer, mass +19 nodes removed. Right neck pain for 1 month. TECHNIQUE: A Dynamic assessment was performed of the right neck by the department head college or university, with selected grayscale and color Doppler images acquired and recorded in PACS. COMPARISON: None available. FINDINGS: Targeted sonographic grayscale and color Doppler assessment in the area of patient's clinical concern labeled as right neck without sonographic evidence for adenopathy. Further evaluation with contrast-enhanced neck CT after placement of a skin marker as clinically indicated. Puller Machine also provides images labeled as right thyroid gland with a partially calcified nodule. This nodule is incompletely imaged and accurate TIRADS cannot be assigned. Gross transverse dimension of 1.4 cm. According to guidelines published in the White Paper of the ACR Incidental Thyroid Findings Committee, follow-up recommendations for incidentally detected thyroid nodules are as follows: 1. In patients <35 years with an incidental thyroid nodule (ITN) detected on CT, MRI, or extrathyroidal ultrasound, the committee recommends further evaluation with dedicated thyroid ultrasound if the nodule is 1 cm, without suspicious imaging features and the patient has normal life expectancy. 2. In patients 35 years with an incidental thyroid nodule ITN detected on CT, MRI, or extrathyroidal ultrasound, the committee recommends further evaluation with dedicated thyroid ultrasound if the nodule is 1.5 cm, without suspicious imaging features, and the patient has normal life expectancy. IMPRESSION: As above. THIS IS AN ELECTRONICALLY VERIFIED FINAL REPORT 11/19/2024 1:41 PM - Electronically signed by Alden Han D.O. AP: AP Report ID: [id number] Reading Location: [id number] Procedure Note Alden Han, DO - 11/19/2024 EXAM DESCRIPTION: US SOFT TISSUE HEAD NECK REASON FOR STUDY: malignant neoplasm of head, face, and neck;cervicalgia 2020 right head neck cancer, mass +19 nodes removed. Right neck pain for1 month. TECHNIQUE: A Dynamic assessment was performed of the right neck by the department head college or university, with selected grayscale and color Doppler images acquired and recorded in PACS. COMPARISON: None available. FINDINGS: Targeted sonographic grayscale and color Doppler assessment in the area of patient's clinical concern labeled as right neck without sonographicevidence for adenopathy. Further evaluation with contrast-enhanced neck CT after placement of a skin marker as clinically indicated. Puller Machine also provides images labeled as right thyroid gland with a partially calcified nodule. This nodule is incompletely imaged andaccurate TIRADS cannot be assigned. Gross transverse dimension of 1.4 cm. According to guidelines published in the White Paper of the ACR Incidental Thyroid Findings Committee, follow-up recommendations for incidentally detected thyroid nodules are as follows: 1. In patients <35 years with an incidental thyroid nodule (ITN)detected on CT, MRI, or extrathyroidal ultrasound, the committee recommends further evaluation with dedicated thyroid ultrasound if the nodule is 1 cm,without suspicious imaging features and the patient has normal life expectancy. 2. In patients 35 years with an incidental thyroid nodule ITN detectedon CT, MRI, or extrathyroidal ultrasound, the committee recommends further evaluation with dedicated thyroid ultrasound if the nodule is 1.5 cm,without suspicious imaging features, and the patient has normal life expectancy. IMPRESSION: As above. THIS IS AN ELECTRONICALLY VERIFIED FINAL REPORT 11/19/2024 1:41 PM - Electronically signed by Alden Han D.O. AP: AP Report ID: [id number] Reading Location: [place] [address] [place] Naa Elizondo MD [facility] PROCEDURES Final Result * CT Colonoscopy Diagnostic WO Contrast (06/08/2024 [...] PROCEDURES Final Result from Last 3 Months or Most Recently Relevant to Health Maintenance Insurance [facility] [employer] OPEN ACCESS [facility] [id number] [facility] [id number] Care Teams Yarn Weigher Relationship Specialty Start Date End Date Naa Elizondo MD PCP - General Family Medicine 10/28/17
--- OUTSIDE RECORDS SUMMARY | 2024-12-25 19:49 | XMS_ITS | Clinical Summary ---
Author Organization [facility] Address [address] [place] [address] Phone Care Team Providers Care Keno Manager Name Role Phone Naa Elizondo MD Primary Care Provider [phone] Zander Bacon MD Unavailable Enzo Funez MD Unavailable [phone] Troy Crump MD Unavailable [phone] Allergies Active Allergy Reactions Criticality Noted Date Comments Ciprofloxacin Rash 08/02/2020 Famotidine Rash 08/02/2020 Potassium Quinoline Sulfate Unknown 08/03/19 21 Unsure of reaction Medications Cyanocobalamin (VITAMIN B-12) 1000 MCG Tablet Take 1,000 mcg by mouth. 1 Active DULoxetine (CYMBALTA) [address] Particles Take 60 mg by mouth. Active Loratadine 10 MG Capsule Take 10 mg by mouth daily. Active Multiple Vitamins-Minerals (WOMENS MULTI PO) daily. Ac tive pantoprazole (PROTONIX) 40 MG Tablet Delayed Response Take 40 mg by mouth 2 times daily. 1 Active traZODone (DESYREL) 50 MG Tablet Take 50 mg by mouth daily. 8 Active valACYclovir (VALTREX) 500 MG Tablet Take 500 mg by mouth daily. 04/05/202 1 Active Calcium Carb-Cholecalcifer ol (CALCIUM 600 + D PO) Take by mouth Every other day. Active NIFEDIPINE PO daily. Active trimethoprim-polym yxin b (POLYTRIM) 77661-1.1 UNIT/ML-% Solution 4 Active buPROPion (WELLBUTRIN) 300 MG TABLET SR 24 HR XL tablet Take 1 Tablet by mouth every morning. Active busPIRone (BUSPAR) 5 MG Tablet Take 5 mg by mouth 3 times daily. Active Zepbound 2.5 MG/0.5ML Solution Auto-injector 2.5 mg. 5 Active fish oil-omega-3 fatty acids 1000 MG Capsule Take by mouth daily. Active magnesium 300 MG Capsule Take by mouth. Active Calcium Polycarbophil (FIBER-CAPS PO) daily. 1 Active ARIPiprazole (ABILIFY) 5 MG Tablet Take 5 mg by mouth daily. Active amitriptyline (ELAVIL) 25 MG Tablet Take 25 mg by mouth nightly. Active Biotin w/ Vitamins C & E (HAIR/SKIN/NAILS PO) Take by mouth. Active Citicoline (COGNITIVE HEALTH PO) Take by mouth. Active Probiotic Product (PROBIOTIC BLEND PO) Take by mouth. Active Active Problems Problem Noted Date Diagnosed [...] Encounters Date Type Department Care Team Description 11/14/2024 11:00 AM CDT [facility] [address] [place] [address] Troy Crump MD History of primary malignant neoplasm of oropharynx (Primary Dx); History of therapeutic radiation; Other specified anxiety disorders; Neck stiffness Discharge Disposition: Discharged to home or Selfcare 11/14/2024 Travel from Last 3 Months Family History [...] Sign Reading Time Taken Comments Blood Pressure 148/87 11/14/2024 10:59 AM CDT Pulse 83 11/14/2024 10:59 AM CDT Temperature 36.7 C (98 F) 11/14/2024 10:59 AM CDT Respiratory Rate 18 11/14/2024 10:59 AM CDT Oxygen Saturation 98% 11/14/2024 10:59 AM CDT Inhaled Oxygen Concentration - - Weight 83.6 kg (184 lb 4.8 oz) 11/14/2024 10:59 AM CDT Height 162.6 cm (5' 4) 11/14/2024 10:59 AM CDT Body Mass Index 31.64 11/14/2024 10:59 AM CDT Plan of Treatment Upcoming Encounters Date Type Department Care Team (Late st Contact Info) Description 04/24/2025 9:00 AM CDT [facility] [address] [place] [phone] Enzo Funez MD [address] [place] [address] 11/14/2025 11:00 AM CDT [facility] [address] [place] [phone] Troy Crump MD [address] [place] [address] Discharge Disposition: Discharged to home or Selfcare Health Maintenance Due Date Last Done Comments Hepatitis C Virus (HCV) Screening 1967 Mammogram 1967 TdaP Immunization 1967 Hepatitis B Immunization (1 of 3 - 19+ 3-dose series) 11/17/1986 Pap Smear 11/17/1988 Cervical Cancer Screening (CCS) 11/17/1997 HPV/Cotest 11/17/1997 Cologuard 11/17/2012 Immunochemical Fecal Occult Blood 11/17/2012 Pneumococcal Immunization (50+ years) (1 of 1 - PCV) 11/17/2017 Zoster Immunization (1 of 2) 11/17/2017 Influenza Immunization (#1) 10/17/202411/16, 11/16/2020, 11/15/2019, Additional history exists SARS-COV-2 Immunization ( - season) 2024 02/07/2021, 04/20/2020 Colonoscopy 02/17/2029 02/17/2019, 02/15/2019 Colorectal Cancer Screening 02/17/2029 Respiratory Syncytial Virus (RSV) Immunization (Adult) (1 - 1-dose 75+ series) 11/17/2042 Human Papillomavirus (HPV) Immunization Aged Out No [...] On track(2020 2:55 PM CDT) Yes Josefina Carr LCSW Note: I want to learn how to relax so I can enjoy life. I don't want to be so anxious about all this. Goal Reviewed with: patient today Readiness to change: Ready to change Department associated with goal: [facility] Steps to achieve goal: [...] Behavioral Health On track(2020 2:56 PM CDT) No Josefina Carr LCSW Note: Sea will process thoughts and feelings related to her diagnosis and it's impact on her life. Goal Reviewed with: patient today Readiness to change: Ready to change Department associated with goal: [facility] Steps to achieve goal: [...] to eat after going through chemo Insurance [employer] [place] [facility] OAP Care Teams Keno Manager Relationship Specialty Start Date End Date Naa Elizondo MD [address] [place] [address] PCP - General Family Medicine 08/02/20 Zander Bacon MD [address] [place] [address] Consulting Physician Otolaryngology & Facial Plastic Surgery 08/02/20 Enzo Funez MD [address] [place] [address] Consulting Physician Radiation Oncology 08/02/20 Troy Crump MD [address] [place] [address] Consulting Physician Medical Oncology 08/14/20
[2024-12-25 20:01] LABS: EDUAAPPEAR Cloudy; EDUABILI Negative (Negative); EDUABLOOD Trace (Negative); EDUACOLOR1 Yellow; EDUAGLUCOSE Negative (Negative); EDUAKETONE Negative (Negative); EDUALEUKO 2+ (Negative); EDUANITRATE Positive (Negative); EDUAPH 6.5; EDUAPROTEIN 2+ (Negative); EDUASPGRAVITY 1.030; EDUAUROBILI 0.2
== END 2024-12-25 20:02 | disposition home or self-care (01) ==
PROVIDERS: Emergency Provider Nurse Practitioner Family; PCP Family Medicine
DX: N30.01 Acute cystitis with hematuria (principal); I10 Essential (primary) hypertension; E78.2 Mixed hyperlipidemia; R73.03 Prediabetes; M79.7 Fibromyalgia; K21.9 Gastro-esophageal reflux disease without esophagitis; Z85.41 Personal history of malignant neoplasm of cervix uteri; Z85.9 Personal history of malignant neoplasm, unspecified; F33.9 Major depressive disorder, recurrent, unspecified
CPT/HCPCS: 81003; 87086; 87186; 99213; G0463

== ENCOUNTER 2025-02-02 07:35 | Outpatient (CLI) | payer OTHER, SELFPAY ==
--- NOTE | ~2025-02-02 | MM_ITS ---
EXAMINATION: MM screening [facility] BI [facility] HISTORY: Screening TECHNIQUE: Craniocaudal and mediolateral oblique 3-D tomosynthesis images were obtained and synthetic 2-D images were generated. CAD analysis was submitted and interpreted. COMPARISON: Comparison to multiple prior studies sequentially, with oldest reviewed study dated 11/19/2017. BREAST PARENCHYMAL COMPOSITION: Not Dense: There are scattered areas of fibroglandular density. FINDINGS: There is no evidence of suspicious mass, calcification, or architectural distortion to suggest malignancy in either breast. Scattered benign-appearing calcifications are present. IMPRESSION: 1. No mammographic evidence of malignancy. 2. Recommend routine screening mammography in one year. BI-RADS Category 2: Benign finding(s). Reviewed, dictated and finalized at location [facility]. [facility]
--- OUTSIDE RECORDS SUMMARY | 2025-02-02 07:40 | XMS_ITS | Clinical Summary ---
Author Organization [facility] Address [address] [place] [address] Care Team Providers Care Academic Affairs Coordinator Name Role Phone Naa Elizondo MD Primary Care Provider [phone] Source Comments [facility],non-owned Affiliates and Associated Physician Practices is amultiple site organization consisting of ambulatory clinics and hospital sitesin [place], [place], [place] and [place]. This disclosure is being madepursuant to the Care Everywhere program and may not contain all information available regarding this patient. Last updated 17.[facility] Allergies Active Allergy Reactions Criticality Noted Date Comments Ciprofloxacin Rash Medium 10/28/2017 Famotidine GI Discomfort Low 06/27/2020 Medications * Be aware that medications may not be up to date on this document. Alwaysverify current medications with the patient. pantoprazole EC (PROTONIX) 40 MG tablet Take 1 (one) tablet by mouth once daily 1 Active cyanocobalamin (VITAMIN B-12) 1000 MCG tablet Take 1 (one) tablet by mouth once daily 1 Active DULoxetine (CYMBALTA) 60 MG capsule Take 1 (one) capsule by mouth once daily 1 Active loratadine (CLARITIN) 10 MG tablet Take 1 (one) tablet by mouth once daily 1 Active norethindrone (ORTHO MICRONOR; NOR-QD; CAREN; DIVYA; GLORIA-BE; SERGE; POONAM) 0.35 MG tablet Take 1 tablet by mouth once daily Active Drospirenone (SLYND) 4 MG TABS tablet Take 1 (one) tablet by mouth every 24 hours Active valACYclovir (VALTREX) 500 MG tablet Take 1 (one) tablet by mouth once daily 1 Active Lares-3 1000 MG Active Calcium Citrate-Vitami n D (JUAN-CITRATE PLUS VITAMIN D PO) Active Inulin (FIBER CHOICE PO) Active Multiple Vitamins-[place] als (WOMENS ONE DAILY PO) Active Magnesium 300 MG Active doxycycline hyclate (PERIOSTAT) 20 MG tablet Take 2 tablets by mouth as directed 2 Active fesoterodine CR 24hr (Toviaz) 4 MG tablet Take 1 (one) tablet by mouth once daily 3 Active amitriptyline (Elavil) 25 MG tablet Take 1 (one) tablet by mouth once daily 3 Active buPROPion XL 24hr (Wellbutrin-XL ) 300 MG tablet Take 1 (one) tablet by mouth every morning Active methylcellulos e (Citrucel) 500 MG tablet Take 1 (one) [...] 1 Dose to affected area as directed 4 Active terbinafine (LamISIL) 250 MG tablet Take 1 (one) tablet by mouth once daily 4 Active predniSONE (Deltasone) 20 MG tablet Take 1 (one) tablet by mouth as directed 5 Active sulfamethoxazo le-trimethopri m (Bactrim DS; Septra DS) 800-160 MG tablet Take 1 (one) tablet by mouth as directed 5 Active busPIRone (Buspar) 5 MG tablet Take 1 (one) tablet by mouth 3 times daily Active ARIPiprazole (Abilify) 5 MG tablet Take 1 (one) tablet by mouth as directed Active Zepbound 5 MG/0.5ML injection Inject 5 (five) mg subcutaneously every 7 days (once a week) 5 Active Active Problems Problem Noted Date Diagnosed Date 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 (AF LURIA, FLUZONE TRIVALENT; 6MO+) (IIV3) 11/15/2019,11/11/2017,12/02/2016,2016,11/16/2015,11/15/2015,11/28/2014,1 COVID MAYKEL PRIMARY 18+YR 04/20/2020 Covid Pfizer primary monoval ent 12+ yr 0.3mL Purple cap 02/07/2021 HEP A VACCINE, ADULT 01/05/2009,05/09/2008 INFLUENZA VACCINE 11/16/2020, 0,11/24/2018,2017 Family History Medical History Relation Name Comments [...] = 0.6 oz pur e alcohol) occ AUDIT-C Answer Date Recorded Frequency of Alcohol Consumption Not on file 12/30/2024 Q2: How many drinks containi ng alcohol do you have on a typical day when you are drinking? Patient does not drink 5 Frequency of Binge Drinking Not on file 12/17 Comments No Sex and Gender Information Value Date Recorded Sex Assigned at Not on file Legal Sex Female 6:04 PM MEDICAL INSURANCE CODING SPECIALIST Gender Identity Not on file Sexual Orientation Not on file Last Filed Vital Signs Vital Sign Reading Time Taken Comments Blood Pressure 117/76 12/30/2024 2:39 PM MEDICAL INSURANCE CODING SPECIALIST Pulse 105 12/30/2024 2:39 PM MEDICAL INSURANCE CODING SPECIALIST Temperature 36.9 C (98.4 F) 06/28/2021 3:31 PM CDT Respiratory Rate 18 10/11/2021 3:55 PM CDT Oxygen Saturation 99% 10/11/2021 3:55 PM CDT Inhaled Oxygen Concentration - - Weight 78.8 kg (173 lb 12.8 oz) 12/30/2024 2:39 PM MEDICAL INSURANCE CODING SPECIALIST Height 162.6 cm (5' 4) 12/30/2024 2:39 PM MEDICAL INSURANCE CODING SPECIALIST Body Mass Index 29.83 12/30/2024 2:39 PM MEDICAL INSURANCE CODING SPECIALIST Plan of Treatment Upcoming Encounters Date Type Department Care Team (Late st Contact Info) Description 06/30/2025 2:30 PM CDT Office Visit [facility] [address] [place] [phone] Zander Bacon MD [address] [place] [address] [address] [place] [address] Health Maintenance Due Date Last Done Comments [...] DEPRESSION SCREENING 02/17/2024 COVID-19 VACCINE (3 - season) 2024 02/07/2021, 04/20/2020 INFLUENZA VACCINE (#1) 2024 1, 11/21/2019, 11/15/2019, Additional history exists SCREENING FOR DIABETES 07/05/2026 4, 07/06/2023, 07/18/2020, Additional history exists PAP SMEAR 2027 11/17/2024, 1003/2024, 10/28/2022, Additional history exists LIPID TESTING 07/05/2028 07/06/2023, [...] Procedure Name Priority Date/Time Associated Diagnosis Comments SC LARYNGOSCOPY FLEXIBLE DIAGNOSTIC Routine 12/30/2024 3:47 PM MEDICAL INSURANCE CODING SPECIALIST Cancer of base of tongue (HCC) COMPREHENSIVE METABOLIC PANEL Routine 07/06/2023 8:51 AM CDT Essential (primary) hypertension LIPID PROFILE Routine 07/06/2023 8:51 AM CDT Mixed hyperlipidemia from Last 3 Months or Most Recently Relevant to Health Maintenance Results * SC LARYNGOSCOPY FLEXIBLE DIAGNOSTIC (12/30/2024 3:47 PM MEDICAL INSURANCE CODING SPECIALIST) Narrative Chata Hamilton MD - 12/30/2024 3:47 PM MEDICAL INSURANCE CODING SPECIALIST Chata Hamilton MD 01/01/2025 10:55 AM Procedure Note Endoscopy Type: Laryngoscopy without stroboscopy [address] Endoscope: Flexible 4mm Scope Anesthesia: Lidocaine 2% and Neosynephrine 1/2% (nasal) Procedure Details: The patient was sitting upright in a chair with the head in a slightly anterior sniffing position. The topical anesthesia was administered and then adequate time was allowed for an anesthetic effect. The endoscope was passed thru the nasal cavity with the tongue retracted anteriorly. The tip of the endoscope was positioned in the oropharynx which allowed a complete view of the base of tongue, vallecula, pyriform recesses, epiglottis, bilateral true and false vocal folds, the interarytenoid and post cricoid region, and the immediate subglottis. Findings: Stable minimal radiation changes to the right base of tongue. Bilateral vocal cords moving. No suspicious lesions in oropharynx, larynx, or hypopharynx Condition: Stable. Patient tolerated procedure well. Complications: None Dr. Bacon was present for the entirety of the procedure. us Zander Bacon MD PROCEDURE/MINOR SURGICAL ORDERAB LES Final Result * (ABNORMAL) COMPREHENSIVE METABOLIC PANEL (07/06/2023 8:51 AM [facility]) BUN 10 7 - 26 mg/dL 07/06/2023 9:50 AM [facility] Creatinine 0.79 0.56 - 0.96 mg/dL 07/06/2023 9:50 AM [facility] Sodium 145 136 - 145 mmol/L 07/06/2023 9:50 AM [facility] Potassium 4.2 3.5 - 4.5 mmol/L 07/06/2023 9:50 AM [facility] Chloride 109(H) 98 - 107 mmol/L 07/06/2023 9:50 AM [facility] CO2 28 22 - 29 mmol/L 07/06/2023 9:50 AM [facility] Glucose 97 70 - 115 mg/dL 07/06/2023 9:50 AM [facility] Calcium 9.4 8.4 - 10.2 mg/dL 07/06/2023 9:50 AM [facility] Protein Total 6.7 6.0 - 8.3 g/dL 07/06/2023 9:50 AM [facility] Albumin 3.7 3.4 - 5.0 g/dL 07/06/2023 9:50 AM [facility] Bilirubin Total 0.3 0.2 - 1.2 mg/dL 07/06/2023 9:50 AM [facility] Alkaline Phosphatase 104 40 - 150 U/L 07/06/2023 9:50 AM [facility] ALT 20 5 - 55 U/L 07/06/2023 9:50 AM [facility] AST 15 5 - 34 U/L 07/06/2023 9:50 AM [facility] Anion Gap 8 6 - 16 07/06/2023 9:50 AM [facility] BUN/Creatinine Ratio 13 7 - 23 07/06/2023 9:50 AM [facility] Osmolality Calculated 299(H) 275 - 295 mOsm/kg 07/06/2023 9:50 AM [facility] Albumin/Globulin Ratio 1.2 1.1 - 2.3 07/06/2023 9:50 AM [facility] eGFR by CKD-EPI 88(L) >=90 mL/min/1.7 3 m2 07/06/2023 9:50 AM [facility] Blood BLOOD SPECIMEN / Unknown Lab Venipuncture / Unknown 07/06/2023 8:51 AM CDT 07/06/2023 9:10 AM T us Naa Elizondo MD LAB - CHEMISTRY ORDERABLES Final Result [facility] [address] [place] [address], [facility] [phone] * LIPID PROFILE (07/06/2023 8:51 AM CDT) Cholesterol Total 162 <200 mg/dL 07/06/2023 9:39 AM [facility] HDL 45 >40 mg/dL 07/06/2023 9:39 AM [facility] Comment: ATP III Classification of HDL Cholesterol: <40 mg/dL: Considered a major risk factor. >60 mg/dL: Considered a negative risk factor. LDL Calculated 89 <100 mg/dL 07/06/2023 9:39 AM [facility] Comment: ATP III Classification of LDL Cholesterol: <100 mg/dL: Optimal 100 - 129 mg/dL: Near Optimal/Above Optimal 130 - 159 mg/dL: Borderline High 160 - 189 mg/dL: High >190 mg/dL: Very High Triglycerides 138 <150 mg/dL 07/06/2023 9:39 AM CDT [facility] Comment: ATP III Classification of Triglycerides: <150 mg/dL: Normal 150 - 199 mg/dL: Borderline High 200 - 400 mg/dL: High >500 mg/dL: Very High Blood BLOOD SPECIMEN / Unknown Lab Venipuncture / Unknown 07/06/2023 8:51 AM CDT 07/06/2023 9:10 AM CDT us Naa Elizondo MD LAB - CHEMISTRY ORDERABLES Final Result [facility] [address] [place] [address], [facility] [phone] from Last 3 Months or Most Recently Relevant to Health Maintenance Insurance [employer] Advance Directives Documents on File Type Date Recorded Patient Search Developer Expl anation Adv Directive/Living Will/POA 07/28/2020 1:04 PM * Full Code (Latest Code Status on File) Date Activated Date Inactivated Comments 07/17/2020 4:03 PM 07/19/2020 11:03 AM Care Teams Academic Affairs Coordinator Relationship Specialty Start Date End Date Naa Elizondo MD [address] [place] [address] PCP - General Family Medicine 08/01/20
--- OUTSIDE RECORDS SUMMARY | 2025-02-02 07:40 | XMS_ITS ---
Author Organization [facility] Address [address] [place] [address] Phone Care Team Providers Care Supervisor Throwing Department Name Role Phone Naa Elizondo MD Primary Care Provider Zander Bacon MD Unavailable [phone] Enzo Funez MD Unavailable [phone] Troy Crump MD Unavailable [phone] Active Problems Problem Noted Date Diagnosed Date [...]
--- OUTSIDE RECORDS SUMMARY | 2025-02-02 07:40 | XMS_ITS | Data Portability ---
Author Organization [facility] Baker Address [address] [place] [address] Care Team Providers Care Security Team Lead Name Role Phone MICA MORENO Primary Care Provider Assessment Encounter Date Assessment Date Assessment LastModified [...] are new symptoms. Not available 11/02/2023 17:53:52 11/17/2024 11/17/2024 Annual gynecological exam performed. Patient will come back in a year unless there are new symptoms. Not available 11/17/2024 09:30:14 Plan of Treatment Reminders Order Date Submit Date Provider Last Modified By Organization Details Last Modified Time Details Appointments None recorded. Lab surgical pathology study 2022 023 [facility] (Lab), [address], [place], [address], 14:26:25 Referral None recorded. Procedures None recorded. Surgeries None recorded. Imaging MAMMO, screening, digital, bilateral 2022 023 [facility], [address], [place], [address], 4 11:06:11 Medication Orders Slynd 4 mg (28) tablet 2021 022 [id number], [address], [place], [place], [id number], 3 16:38:14 Patient TargetsNo targets recorded. Patient InstructionsNo instructions recorded. Reason for Referral None Reported. Results Created Date Observation Date Name Description Value Unit Range Abnormal Flag Note LastModifiedBy Organization Detail LastModifiedTime 08/16/19 22 08/15/2021 IMAGE GUIDE D PAP AND HPV REGAR DLESS image guided Pap, HPV regardless of Pap result SEE RESULT S BELOW abnormal CASE REPOR T: Cytol ogy Gynec ologi juan Repor t Case: [id number] Autho darius bermudez Provi david: Sea Grimaldo Colle cted: 08/15 1557 TRAILER PARK MANAGER Order ing Locat ion: [place] Patho logy Recei nick: 08/16 0150 First Scree n: Dariana Nieto, CT Patho logis t: Beatriz Caal MD Speci men: Terry childg Pap - Image d, Cervi x STATE MENT OF ADEQU ACY: Satis facto ry for evalu ation Trans forma tion zone compo nent prese nt FINAL DIAGN OSIS: Epith elial Cell Abnor malit y, Squam ous Cell: Atypi juan Squam ous Cells of Undet ermin ed Devoni devi soliman (ASC- [place]). Elect rosalino sam by Beatriz Caal MD on at 8:27 AM ----- ----- ----- ----- [...] ry: Hormo sapna (if appli cable ): SUGONEL STED FOLLO W-UP: Follo w up as warra nted, based on curre nt guide lines and indiv idual patie nt consi derat ions. Not Available [facility] (Lab) [address], [place], [address], 08/23/2021 09:29:49 04/22/19 23 04/21/2022 SURGI JUAN PATHO LOGY surgical pathology SEE RESULT S BELOW CASE REPOR T: Surgi juan Patho logy Repor t Case: [id number] Autho darius bermudez Provi david: Fabrice Castañeda [...] e and squam ous mucos a. Ino oakes donna d by Amy Krueger MD on 023 at 1:23 PM ----- ----- ----- ----- ----- ----- ----- ----- ----- ----- ----- ----- ----- ----- ----- ----- ----- ---- CLINI JUAN INFOR RADHA N: [id number] 9 MICRO SCOPI C DESCR IPTIO N: A micro scopi c exami natio n was perfo rmed. GROSS DESCR IPTIO N: A. Humera flor m. The speci men is label ed with the patie nt's name, pebbles vela and EMB. Recei nick in forma christine is a 2.0 x 1.0 x 0.1 [address] of molina-w jose tissu e and mucoi d mater ial. The entir e speci men is submi tted in one casse tte. Gross ed by Roxana Bravo Not Available [facility] (Lab) [address], [place], [address], 04/22/2022 14:26:25 10/29/19 23 10/28/2022 IMAGE GUIDE D PAP AND HPV REGAR DLESS image guided Pap, HPV regardless of Pap result SEE RESULT S BELOW CASE REPOR T: Cytol ogy Gynec ologi juan Repor t Case: [id number] Autho darius bermudez Provi david: Sea Grimaldo Colle cted: 10/28 1658 TRAILER PARK MANAGER Order ing Locat ion: [place] Patho logy [...] Negat kevin for Intra epith elial Lesio louise or Becca palencia (NIL) . Atrop hic [...] ing techn ique. Anish nued regul ar ciarrae gavin is the best metho d of cance r preve ntion . If repor cristian cytol ogic findi ng do not corre late with physi juan and/o r histo rical findi ngs, furth er inves tigat ion is recom booker d, as clini ariel mathias nted. Not Available [facility] (Lab) [address], [place], [address], 10/30/2022 15:58:15 11/02/19 24 11/02/2023 IMAGE GUIDE D PAP AND HPV REGAR DLESS image guided Pap, HPV regardless of Pap result SEE RESULT S BELOW CASE REPOR T: Cytol ogy Gynec ologi juan Repor t Case: [id number] Autho darius bermudez Provi david: Fabrice Castañeda MD Colle cted: 11/01 1725 Order ing Locat ion: [place] Patho logy Recei nick: 11/02 0807 First Scree n: Rachna Rodarte, CT Rescr een: Christina Dewey ret, CT Speci men: Terry alonso Pap - Image d, Cervi x STATE MENT OF ADEQU ACY: Satis facto ry for evalu ation Trans forma tion zone compo nent prese nt Parti ally obscu ring infla mmati on prese nt ----- ----- ----- ----- ----- ----- ----- ----- ----- ----- ----- ----- ----- ----- ----- ----- ----- ---- FINAL DIAGN OSIS: Negat kevin for Intra epith elial Eduardo gil or Becca palencia ([facility]) . Elect rosalino oakes donna d by Christina [...] as clini ariel mathias nted. Not Available [facility] (Lab) [address], [place], [address], 11/09/2023 15:20:49 11/18/19 25 11/17/2024 IMAGE GUIDE D PAP AND HPV REGAR DLESS image guided Pap, HPV regardless of Pap result SEE RESULT S BELOW CASE REPOR T: Cytol ogy Gynec ologi juan Repor t Case: [id number] Autho darius bermudez Provi david: Fabrice Castañeda MD Colle cted: 11/17 1154 Order ing Locat ion: [place] Patho logy Recei nick: 11/18 0121 First Scree n: Lamonte Mueller, CT Speci men: Terry alonso Pap - Image d, Cervi x STATE MENT OF ADEQU ACY: Satis facto ry for evalu ation Trans forma tion zone compo nent prese nt Parti ally obscu ring infla mmati on prese nt. ----- ----- ----- ----- ----- ----- ----- ----- ----- ----- ----- ----- ----- ----- ----- ----- ----- ---- FINAL DIAGN OSIS: Negat kevin for Intra epith elial Eduardo gil or Becca palencia ([facility]) . Elect rosalino oakes donna d by Lamonte Mueller, CT on 2024 at 0837 CDT ----- ----- ----- ----- ----- ----- ----- [...] ation . COMME NT: Slide scree andrea manua lly due to rejec tion by the [...] as clini ariel mathias nted. Not Available [facility] (Lab) [address], [place], [address], 11/22/2024 09:43:38 04/20/19 23 04/15/2022 US, pelvi s, compl ete No observ ation record ed. [email or web address] [facility] [address], [place], [address], 04/20/2022 22:29:21 09/02/19 23 09/01/2022 MAMMO , ciarrae gavin, digit al, bilat eral No observ ation record ed. [facility] [address], [place], [address], 09/02/2022 17:38:30 01/28/20 01/28/2024 MAMMO , scree gavin, bilat eral No observ ation record ed. [facility] [address], [place], [address], 01/29/2024 11:02:41 Result Notes None recorded. Problems Name Problem SNOMED Code Status Onset Date Resolution Date Notes Provider Name and Address Organization Details Recorded Time Screenin g for malignan t neoplasm of colon Completed 201009/11/2020 Special screenin g for malignan t neoplasm s, colon;Pr actice ID: [id number] Angela Vazquez [facility], [facility] 17:29:17 Atypical squamous cells on cervical Papanico laou smear cannot exclude high grade squamous intraepi thelial lesion [id number] Completed 201009/11/2020 Pap Abnormal ASCH;Pra ctice ID: [id number] Angela Vazquez [facility] 17:28:53 Speciali zed medical examinat ion Completed 201109/11/2020 Gynecolo gical Examinat ion;Sreekanth rded Elsewher e: No Locat ion: [facility] S ource: EHR Aircraft Maintenance Supervisor vicente: N Dana ce ID: [id number] Kvng lable Time: 01:30:00 PM [facility] 17:29:23 Atypical squamous cells of undeterm ined signific ance on cervical Papanico laou smear 359252584 Completed 201209/11/2020 Papanico laou smear of cervix with atypical squamous cells of undeterm ined signific ance (ASC-US) ;Recorde d Elsewher e: No Locat ion: [facility] S ource: EHR Aircraft Maintenance Supervisor vicente: N Isidoroti ce ID: [id number] Kvgn lable Time: 03:45:00 PM [facility] 17:28:52 Human papillom a virus infectio n 323640196 Completed 201309/11/2020 HUMAN PAPILLOM AVIRUS IN CONDITIO NS CLASSIFI ED ELSEWHER E AND OF UNSPECIF IED SITE;Rec orded Elsewher e: No Locat ion: [facility] S ource: EHR Aircraft Maintenance Supervisor vicente: Louise Cortez ce ID: [id number] Kvng lable Time: 04:30:00 PM Angela Vazquez [facility] 1 17:29:05 Screenin g for malignan t neoplasm of cervix Completed 201409/11/2020 Screenin g for malignan t neoplasm s of the cervix;R ecorded Elsewher e: No Locat ion: [facility] S ource: EHR Aircraft Maintenance Supervisor vicente: N Isidoroti ce ID: [id number] Kvng lable Time: 04:30:00 PM Angela Vazquez [facility] 17:29:15 Obesity 248081629 Completed 201409/11/2020 Obesity; Recorded Elsewher e: No Locat ion: [facility] S ource: EHR Aircraft Maintenance Supervisor vicente: N Isidoroti ce ID: [id number] Kvng lable Time: 04:30:00 PM Angela Vazquez [facility] 17:29:11 Benign essentia l hyperten aden 1064175 Completed 201409/11/2020 Benign HTN;Sreekanth rded Elsewher e: No Locat ion: [facility] S ource: EHR Aircraft Maintenance Supervisor vicente: N Isidoroti ce ID: [id number] Kvng lable Time: 04:30:00 PM Angela Vazquez [facility] 17:28:55 Abnormal cervical Papanico laou smear 842494511 Completed 201409/11/2020 Other abnormal papanico laou smear of cervix and cervical HPV;Sreekanth rded Elsewher e: No Locat ion: [facility] S ource: EHR Aircraft Maintenance Supervisor vicente: N Isidoroti ce ID: [id number] Kvng lable Time: 10:30:00 AM Angela Vazquez null, [facility] 1 17:28:50 Family planning surveill ance Completed 201409/11/2020 Contrace ptive surveill ance;Rec orded Elsewher e: No Locat ion: [facility] S ource: EHR Aircraft Maintenance Supervisor vicente: N Practi ce ID: [id number] Kvng lable Time: 10:30:00 AM Angela Vazquez [facility] [address] 17:29:[address] Concept Completed 201509/11/2020 Encntr for wire weaver cloth exam (general ) (routine ) w/o abn findings ;Recorde d Elsewher e: No Locat ion: [facility] S ource: EHR Aircraft Maintenance Supervisor vicente: N Isidoroti ce ID: [id number] Kvng lable Time: 05:00:00 PM Angela oconnor [facility] 1 17:29:22 Low risk human papillom avirus deoxyrib onucleic acid detected in specimen from cervix [id number] 297193 Completed 201509/11/2020 Cervical low risk human papillom avirus (HPV) DNA test positive ;Recorde d Elsewher e: No Locat ion: [facility] S ource: EHR Aircraft Maintenance Supervisor vicente: N Isidoroti ce ID: [id number] Kvng lable Time: 08:30:00 AM Angela oconnor [facility] 1 17:29:08 Human papillom avirus deoxyrib onucleic acid detected , high risk on cervical specimen [id number] Completed 201509/11/2020 Cervical high risk HPV DNA test positive ;Recorde d Elsewher e: No Locat ion: [facility] S ource: EHR Aircraft Maintenance Supervisor vicente: N Practi ce ID: [id number] Kvng lable Time: 10:12:30 AM Angela oconnor [facility] 1 17:29:07 Pregnanc y test negative [id number] Completed 201509/11/2020 Encounte r for pregnanc y test, result negative ;Recorde d Elsewher e: No Locat ion: Sravanthi salbador [facility] S ource: EHR Aircraft Maintenance Supervisor vicente: N Practi ce ID: [id number] Kvng lable Time: 03:30:00 PM Angela Vazquez [facility] 1 17:29:13 Body mass index 30+ - obesity 680032289 Completed 201609/11/2020 Body mass index (BMI) 33.0-33. 9, adult;Re corded Elsewher e: No Locat ion: [facility] S ource: [facility] vicente: N Practi ce ID: [id number] Kvng lable Time: 09:30:00 AM Angela Vazquez [facility] 17:28:57 Screenin g for malignan t neoplasm of rectum Completed 201609/11/2020 Encounte r for screenin g for malignan t neoplasm of rectum;R ecorded Elsewher e: No Locat ion: [facility] S ource: [facility] viecnte: N Practi ce ID: [id number] Kvng lable Time: 09:30:00 AM Angela Vazquez [facility] 17:29:18 Evaluati on finding Completed 201609/11/2020 Oth abn and inconclu sive findings on dx imaging of breast;R ecorded Elsewher e: No Locat ion: [facility] S ource: EHR Aircraft Maintenance Supervisor vicente: N Practi ce ID: [id number] Kvng lable Time: 03:57:36 PM Angela Vazquez [facility] 17:28:[address] Concept Completed 201709/11/2020 Encntr for general adult medical exam w/o abnormal findings ;Recorde d Elsewher e: No Locat ion: [facility] S ource: EHR Aircraft Maintenance Supervisor vicente: N Practi ce ID: [id number] Kvng lable Time: 03:30:00 PM Angela oconnor [facility] 17:29:20 Evaluati on finding Completed 201709/11/2020 Hematuri a, unspecif ied;Sreekanth rded Elsewher e: No Locat ion: Anatoly siu [facility] S ource: EHR Aircraft Maintenance Supervisor vicente: N Practi ce ID: [id number] Kvng lable Time: 03:30:00 PM Angela oconnor [facility] 17:29:01 Problem Notes None recorded. Procedures Surgical History Date Name Laterality Status Provider Name and Address Organization Details Recorded Time 01/28/20 24 Date of Last Mammogram completed [facility] 11/17/2024 09:34:36 11/02/19 24 Date of Last Pap Smear completed Maureen [facility] 11/17/2024 09:34:04 04/20/19 23 Endometrial Biopsy completed Solo Castañeda MD [address], [place], [address], , P.C[facility] 04/19/2022 12:08:51 02/18/19 20 completed Angela Anne [facility] 09/12/2020 09:35:56 02/18/19 20 Date of Last Colonoscopy completed [facility] 09/12/2020 09:35:57 02/16/19 20 Colonoscopy completed Rosey Looney ABISAI- [address], [place], [address], , P.C[facility] 03/15/2021 16:38:03 Other completed [facility] 03/15/2021 16:29:30 Cryotherapy/Cryoc autery completed Kimi Agrawal [facility] 08/22/2019 10:39:46 Tonsillectomy completed Kimi Agrawal [facility] 08/22/2019 10:39:50 Imaging Results None recorded. Procedure Notes None recorded. Medical Equipment None Reported. Allergies Allergen ID Allergen Name Allergen Category Reaction Reaction Severity Criticality Documentation Date Start Date Code Code System Note Provider Name and Address Organization Details Recorded Time 1203 ciproflox acin medicatio n Not available Not available Not available 08/22/2019 2551 RxNorm Kimi Agrawal [facility] 0 10:36:47 86921 famotidin e medicatio n Not available Not available Not available 09/12/2020 4278 RxNorm Angela Vazquez [facility] 1 09:36:23 02342 Substance with quinolone structure and antibacte rial mechanism of action (substanc e) medicatio n Not available Not available Not available 09/12/2020 49890 2000 SNOMED Angela Vazquez [facility] 1 09:36:35 Medications Name Sig Start Date Stop Date Status Note LastModified by Organization Details LastModified Time nifedipin e ER 30 mg tablet,ex tended release 24 hr TAKE 1 TABLET BY MOUTH EVERY DAY active Not Available Not Available No t Available buspirone 5 mg tablet 5 MG ORALLY THREE TIMES A DAY NEEDED FOR STRESS active Not Available Not Available No t Available prednison e 10 mg tablet TAKE 5 TAB X2 DAY, 4 TAB X2 DAY 3 TAB X2 DAY 2 TAB X2 DAY 1 TAB X2 DAY THEN STOP 11/17 completed Not Available Not Available Not Available [...] route every day 09/11 completed [facility] Loca tion: [facility] odify By: jennifer appiah DateTime : 09/23/19 [...] Available Not Available Not Available prednison e 20 mg tablet TAKE 3 TABLETS BY MOUTH X 2 DAYS, 2 TABS X 2 DAYS, 1 TAB X 2 DAYS 11/17 completed Not Available Not Available Not Available [...] Not Available valacyclo vir 500 mg tablet 500 MG ORALLY DAILY active Not Available Not Available No t [...] TAKE 1 TABLET BY MOUTH EVERY DAY 11/17 completed Not Available Not Available Not Available amitripty line 25 mg tablet 25 MG ORALLY EVERY DAY AT BEDTIME active Not Available Not Available No t Available trazodone 100 mg tablet TAKE 1 TABLET ORALLY EVERY DAY AT BEDTIME NEEDED FOR INSOMNIA active Not Available Not Available No t Available nifedipin e 10 mg capsule 03/15 completed Not Available Not Available Not Available pantopraz ole 40 mg tablet,de layed release 40 MG ORALLY TWICE A DAY active Not Available Not [...] route every 12 hours 09/11 completed Prescrib ed Elsewher e: Yes Loca tion: [facility] odify By: virgie casanova DateTime : 08/17/19 19 08:30:00 AM Not Available Not Available Not Available lansopraz ole 15 mg capsule,d elayed release take 1 capsule by oral route every day before a meal 08/15 completed Prescrib ed Elsewher e: Yes [facility] By: jennifer appiah DateTime [...] Prescrib ed Elsewher e: Yes Loca tion: [facility] odify By: virgie morrisuntkitty DateTime : 08/17/19 19 08:30:00 AM Not Available Not Available Not Available Necon 0.5/35 (28) 0.5 mg-35 mcg tablet take 1 tablet by oral route every day 03/21 completed Prescrib ed Elsewher e: No Locat ion: [facility] odify By: joce amezcua DateTime : 03/01/19 [...] Prescrib ed Elsewher e: No Locat ion: [facility] odify By: yariel casanova DateTime : 08/06/19 17 09:30:00 AM Not Available Not Available Not Available Ambien 5 mg tablet take 2 tablet by oral route every day at bedtime 11/17 completed Prescrib ed Elsewher e: Yes Loca tion: [facility] odify By: jennifer appiah DateTime : 09/23/19 [...] Prescrib ed Elsewher e: Yes Loca tion: [facility] odify By: jennifer appiah DateTime : 09/23/19 12 01:30:00 PM Not Available Not Available Not Available Calcium 500 + D 500 mg-5 mcg (200 unit) tablet 10/03 completed Prescrib ed Elsewher e: Yes Loca tion: [facility] odify By: shey appiah DateTime : 09/23/19 12 01:30:00 PM Not Available Not Available Not Available aripipraz ole 5 mg tablet 5 MG ORALLY EVERY DAY AT BEDTIME active Not Available Not Available No t Available bupropion HCl XL 300 mg 24 hr tablet, extended release 300 MG ORALLY EVERY MORNING active Not Available Not Available No [...] duloxetin e 60 mg capsule,d elayed release 60 MG ORALLY DAILY active Not Available Not Available No t [...] Prescrib ed Elsewher e: Yes Loca tion: [facility] odify By: shey appiah DateTime : 10/04/19 15 10:30:00 AM Not Available Not Available Not Available Laurel 3-6-9 (with lipase) 40 mg-60 mg-10 unit capsule 11/17 completed Prescrib ed Elsewher e: Yes Loca tion: [facility] odify By: virgie Siu ncounter DateTime : 08/17/19 19 08:30:00 AM Not Available Not Available Not Available Laurel 3-6-9 03/15 completed Not Available Not Available Not Available Fiber Laxative (methylce llulose) 500 mg tablet active Prescrib ed Elsewher e: Yes Loca tion: [facility] odify By: jennifer appiah DateTime : 09/23/19 12 01:30:00 PM Not Available Not Available Not Available fesoterod ine ER 4 mg tablet,ex tended release 24 hr TAKE 1 TABLET BY MOUTH EVERY DAY 11/17 completed Not Available Not Available Not Available bupropion HBr 09/11 completed Not Available Not Available Not Available GaviLyte- G 236 gram-22.7 4 gram-6.74 gram-5.86 gram oral solution 240 ML ORALLY EVERY 10 MINUTES UNTIL FECAL EFFLUENT IS CLEAR 11/01 completed Not Available Not Available Not Available B12 5,000 mcg-100 mcg sublingua l lozenge 10/28 completed Prescrib ed Elsewher e: Yes Loca tion: [facility] odify By: jennifer appiah DateTime : 09/23/19 01:30:00 PM Not Available Not Available Not [...] active Not Available Not Available Not Available Zepbound 2.5 mg/0.5 mL subcutane ous solution Inject 0.5 mL every week by subcutan eous route for 28 days. active Not Available Not Available No t Available Vitals Date Recorded Body height Body mass index (BMI) Body weight Systolic And Diastolic Provider Name and Address Organization Details Last Updated DateTime 04/19/2022 161.29 cm 32.8 kg/m2 42681.37 g 130/78 mm[Hg] Eli Boyle [facility] 04/19/2022 11:35:42 Date Recorded Systolic And Diastolic Provider Name and Address Organization Details Last Updated DateTime 08/15/2021 133/76 mm[Hg] Rosey Looney, [facility]- [address], [place], [address], [facility] 08/15/2021 14:41:01 Date Recorded Body height Body mass index (BMI) Body weight Provider Name and Address Organization Details Last Updated DateTime 08/15/2021 161.29 cm 29.6 kg/m2 97908.7 g Angela Vazquez [facility] 08/15/2021 13:27:29 Date Recorded Body height Body mass index (BMI) Body weight Systolic And Diastolic Provider Name and Address Organization Details Last Updated DateTime 10/28/2022 161.29 cm 29.3 kg/m2 96188.52 g 105/69 mm[Hg] Maureenfrantz Stinsoner [facility] 10/28/2022 16:37:10 Date Recorded Body height Body mass index (BMI) Body weight Systolic And Diastolic Provider Name and Address Organization Details Last Updated DateTime 11/02/2023 161.29 cm 31.4 kg/m2 67844.63 g 146/77 mm[Hg] Maureen [facility] 11/02/2023 17:54:57 Date Recorded Body height Body mass index (BMI) Body weight Systolic And Diastolic Provider Name and Address Organization Details Last Updated DateTime 11/17/2024 161.29 cm 32.1 kg/m2 60027 g 98/64 mm[Hg] Maureen [facility] 11/17/2024 09:31:14 Social History Question Answer Notes LastModified by Organizat ion Details LastModified Time Tobacco Smoking Status Never Smoker Maureen Kp [facility] 10/28/2022 16:37:33 Do You Have An [...] Or The Highest Degree You Have Received? [id number] Information not available 09/12/2020 How Many Days [...] not available 03/12/2020 Are you able to walk independently without assistance or assistive devices? 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 Moderate Information not available 03/15/2021 Mental Status Question Answer Note LastModified by Organization D etails LastModified Time Do you feel stressed (tense, restless, nervous, or anxious, or unable to sleep at night)? [id number] Information not available 09/12/2020 Family History Relationship Description Onset Age of this Age Resolved Age Notes LastModified by Organization Details LastModified Time Father Diabetes mellitus [email or web address] Not available 2019 10:39:01 Father Malignant neoplasm of colon [email or web address] Not available 2019 10:39:17 Mother Hypertensive disorder [email or web address] Not available 2019 10:39:09 Mother Carcinoma in situ of uterus Not available 2024 09:15:14 Medical History Condition Response Anxiety Disorder Y Allergies (Food, seasonal, environmental ) Y Other Y Depression/ depression Y History of STI Y History of abnormal pap Y Cancer Y Fibromyalgia Y Hypertension Y GI Problems Y Gynecological History Statement/Question Response Flow Light Date of Last Mammogram 01/28/2024 Date of LMP 01/17/2020 N Was last menstrual period normal N STIs/STDs Y Date of control 07/18/1995 Date of Last Colonoscopy 02/18/2019 Abnormal Pap Yes On BCP's at Conception? N HPV Vaccine N Duration of Flow (days) 2 Current Control Method Menopause Most Recent Bone Density Sexually Active? Y Menses Monthly N Age of first menstrual cycle 17 Date of Last Pap Smear 11/02/2023 Sexual Problems? N LMP Approximate 02/18/2019 N 07/17/1996 Obstetrics History GPAL:G 0 P 0 0 0 0 Type Value Living 0 Total 0 Past Encounters Encounter ID Performer Location Encounter Start Date Encounter Closed Date Diagnosis/Indication Diagnosis SNOMED-CT Code Diagnosis ICD10 Code Diagnosis IMO Codes Diagnosis Note [id number] Rosey Looney [facility] [address] [address] 08/22/2019 10:26:43 08/22/2019 12:19:45 Gynecologic examination 65498744 Z01.419 Take Calcium with Vitamin D 12-1500mg daily. Do monthly self breast exams. It is advised to get annual flu shot in the fall and she could obtain at [facility] or [facility] take care clinic. If you haven't received [...] or respond to this email Irregular periods [id number] [id number] N92.6 FSH/LH ordered Periods have been light q3-4mos for the past 2yrs. LMP 07/19 through 07/23/2019. We agreed to pursue labs. If wnl, consider TVUS & restart POP. [id number] Rosey Looney , ABISAI-[facility] [address] [address] 03/12/2020 16:24:45 03/12/2020 17:17:35 Irregular periods 81172598 N92.6 Patient is here today for a [...] this patient s visit, including available hand senior peoplesoft developer upon arrive, temperatur e check and being asked a series of screening questions. All staff wore face coverings during this encounter, as well as provided additional cleaning and sanitizing of all surfaces, including countertop s, pens, chairs, door handles, light switches, etc, prior to and following the patient s visit. [id number] Rosey Looney [facility] [address] [address] 09/12/2020 09:13:01 09/12/2020 10:21:19 Gynecologic examination 43022772 Z01.419 Take Calcium with Vitamin D 12-1500mg daily. Do monthly self breast exams. It is advised to get annual flu shot in the fall and she could obtain at [facility] or [facility] clinic. If you haven't received the Tdap [...] IUD. Screening for malignant neoplasm of breast [id number] Z12.39 [id number] Rosey Looney [facility] [address] [address] 03/15/2021 16:19:02 03/18/2021 13:31:58 Human papillomavirus deoxyribonucleic acid detected, high risk on cervical specimen 119947967 R87.810 R/P pap/hpv x 6mos sentWIl await [...] this patient s visit, including available hand senior peoplesoft developer upon arrive, temperatur e check and being asked a series of screening questions. All staff wore face coverings during this encounter, as well as provided additional cleaning and sanitizing of all surfaces, including countertop s, pens, chairs, door handles, light switches, etc, prior to and following the patient s visit. [facility] management [id number] Z30.9 We will provide samples of SLYND.When needs samples can come by office to request them.At some point we will again r/p FSH/LH/Est radiol to see if she is menopause ranges and then can d/c POP. She is agreeable to this plan. [id number] Rosey Looney [facility]ISAI-[facility] [address] [address] 08/15/2021 13:06:28 08/15/2021 14:58:08 Gynecologic examination [id number] Z01.419 Z11.51 Take Calcium with Vitamin D 12-1500mg daily. Do monthly self breast exams. It is advised to get annual flu shot in the fall and she could obtain at [facility] or [facility] clinic. If you haven't received the Tdap [...] been answered. 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 [id number] Rosey Looney [facility] [address] [address] 10/28/2022 16:17:41 10/28/2022 16:55:39 Gynecologic examination 80379052 Z01.419 Z11.51 Take Calcium with Vitamin D 12-1500mg daily. Do monthly self breast exams. It is advised to get annual flu shot in the fall and she could obtain at [facility] or [facility] take care clinic. If you haven't received [...] PCPMammo wnl 2022 PCP Screening mammography 24 203043 Z12.31 order for next year [id number] Solo Castañeda MD [facility] [address] [address] 11/02/2023 16:27:55 11/03/2023 09:34:30 Gynecologic examination 15819729 Z01.419 Annual gynecologi juan exam performed. Patient [...] Pap smear- today laboratory evaluation - done [id number] Solo Castañeda MD [facility] [address] [address] 11/17/2024 09:14:35 11/17/2024 11:32:25 Gynecologic examination 18173435 Z01.419 [id number] Annual gynecologi juan exam performed. Patient will [...] email. mammogram- scheduled colon cancer screening - done DEXA scan- na Pap smear- today laboratory evaluation - done Health Concerns Section Related Observation LastModified by Organization Detai ls LastModified Time None Recorded Concern Status LastModified by Organization Details LastModified Time None Recorded Advance Directives Directive Y: Payers Insurance Date Sequence Insurance Name Policy Number Policy Wheatley Covered Member ID Wheatley Member ID Guarantor Name 11/02/2023 1 [facility] [id number] Iraida Renetta Conor [id number] Iraida Denson 11/16/2024 1 [facility] [employer] [id number] Bharat Denson [id number] OI Iraida Denson Notes Date Note Type Note Provider Name and Address Organization Details Recorded Time 08/16/19 22 text/htm l Annual GYNReported by PatientGenitourinary symptomsFor menstrual cycle, patient reportsnormal menses (on slynd. no cycle on this therapy). For urinary symptoms, patient reportsno hematuriaandno incontinence. For vulva, patient reportsno genital lesion. For vagina, patient reportsnormal vaginal discharge.Breast symptomsFor breast, patient reportsno breast pain,no breast lump, andno nipple discharge.ContraceptionFor current contraception, patient reportssatisfied with current contraceptionandoral contraceptives (pop only).Endocrine symptomsFor sexual complaints, patient reportsno sexual complaints,no pain during intercourse, andnormal libido. For menopausal symptoms, patient reportsno menopausal symptomsandnormal vaginal lubrication.Psychological symptomsFor psychological symptoms, patient reportsno depression,no anxiety, andno pmdd.Preventative measuresFor preventive measures, patient reportsencourage self breast examination,encourage regular exercise,encourage no tobacco use,encourage regular mammograms starting age 40,history of abnormal pap smear/cervical dysplasia,needs to schedule mammogram, andup to date on colonoscopy screening. Rosey Looney, ABISAI- [address], [place], [address], [facility] 08/15/2021 14:46:15 04/20/19 23 text/htm l this patient is a 56-year-old female who was found to have thickened endometrium on a pelvic ultrasound. She was having pelvic pain. Discussed these findings and agreed perform endometrial biopsy today. She tolerated the biopsy well. We will follow-up on the pathology results and inform her of the results. Solo Castañeda MD [address], [place], [address], , [facility] 04/19/2022 12:23:04 10/29/19 23 text/htm l Annual Community Health Nurse Post-MenopausalReported by PatientGenitourinary symptomsFor menopausal symptoms, patient reportsno menopausal symptomsandnormal vaginal lubrication. For vaginal bleeding, patient reportshistory of menopause having occurredandno history of post menopausal bleeding. For urinary symptoms, patient reportsno hematuria,no incontinence,no nocturia, andno urinary frequency. For vulva, patient reportsno genital lesionandno vulvar atrophy. For vagina, patient reportsnormal vaginal dischargeandno vaginal atrophy.Breast symptomsFor breast, patient reportsno breast lump,no nipple discharge, andno breast pain.Psychological symptomsFor sexual complaints, patient reportsno sexual complaints. For psychological symptoms, patient reportsno depressionandno anxiety.Preventative measuresFor preventive measures, patient reportsencourage regular mammograms starting age 40,encourage self breast examination,encourage regular exercise,encourage no tobacco use,mammogram performed within the past year, andhistory of recent colonoscopy. Rosey Looney [facility] [address], [place], [address], , [facility] 10/28/2022 16:55:13 11/02/19 24 text/htm l Annual GYNReported by PatientHistoryFor history, patient reportsno gynecologic complaints.Genitourinary symptomsFor menstrual cycle, patient reportsnormal menses. For urinary symptoms, patient reportsno hematuria. For vulva, patient reportsno genital lesion. For vagina, patient reportsnormal vaginal discharge.Breast symptomsFor breast, patient reportsno breast painandno breast lump.Endocrine symptomsFor sexual complaints, patient reportsno sexual complaintsandno pain during intercourse. For menopausal symptoms, patient reportsno menopausal symptoms.Psychological symptomsFor psychological symptoms, patient reportsno depressionandno anxiety.Preventative measuresFor preventive measures, patient reportsencourage self breast examinationandencourage regular exercise. Solo Castañeda MD [address], [place], [address], [facility] 11/02/2023 18:13:40 11/18/19 25 text/htm l Annual GYNReported by PatientHistoryFor history, patient reportsno gynecologic complaints.Genitourinary symptomsFor menstrual cycle, patient reportsnormal menses. For vulva, patient reportsno genital lesion. For vagina, patient reportsnormal vaginal discharge.Breast symptomsFor breast, patient reportsno breast painandno breast lump.Endocrine symptomsFor sexual complaints, patient reportsno sexual complaintsandno pain during intercourse. For menopausal symptoms, patient reportsno menopausal symptoms.Psychological symptomsFor psychological symptoms, patient reportsno depressionandno anxiety.Preventative measuresFor preventive measures, patient reportsencourage self breast examinationandencourage regular exercise. Solo Castañeda MD [address], [place], [address], , [facility] 11/17/2024 11:15:09 OBGyn Episode No OBEpisode recorded.
--- OUTSIDE RECORDS SUMMARY | 2025-02-02 07:40 | XMS_ITS | Clinical Summary ---
Author Organization [address] Address [address] [place] [phone] Care Team Providers Care City Director Name Role Phone Naa Elizondo MD Primary Care Provider [phone] Allergies Active Allergy Reactions Criticality Noted Date Comments Ciprofloxacin Rash Medium 10/28/2017 Medications citalopram (CeleXA) 40 mg tablet Take 40 mg by mouth daily. 3 8 Active loratadine (CLARITIN) 10 mg tablet Take 10 mg by mouth daily. 3 8 Active traZODone (DESYREL) 50 mg tablet Take 50 mg by mouth nightly. at bedtime. 3 8 Active NIFEdipine (PROCARDIA) 10 mg capsule Take 10 mg by mouth 3 (three) times a day. Active norethindrone-e. estradiol-iron (03/07) 1 mg-20 mcg (21)/75 mg (7) per tablet Take 1 tablet by mouth daily. Active buPROPion (WELLBUTRIN) 75 mg tablet Take 75 mg by mouth 2 (two) times a day. Active fenofibrate 150 mg capsule Take by mouth. Active lansoprazole (PREVACID) 15 mg capsule Take 15 mg by mouth daily. Active tirzepatide, weight loss, (Zepbound) 5 mg/0.5 mL pen injectorIndicati ons:Class 1 obesity without serious comorbidity with body mass index (BMI) of 30.0 to 30.9 in adult, unspecified obesity type Inject 0.5 mL (5 mg total) under the skin every 7 days 2 mL 2 5 Active nitrofurantoin monohydrate (MACROBID) 100 mg capsule Take 1 capsule (100 mg total) by mouth 2 (two) times a day for 5 days 10 capsule 01/17/20 25 tirzepatide, weight loss, (Zepbound) 5 mg/0.5 mL pen injector Inject 0.5 mL (5 mg total) under the skin every 7 days 01/19/20 25 Discontinue d(Reorder) Active Problems Problem Noted Date Diagnosed Date Recurrent major depressive disorder, in partial remission 01/11/2025 Assessment & Plan (01/11/2025 10:12 AM TELEPHONY ENGINEER): Bupropion 75mg bid Citalopram 40mg daily Primary hypertension 01/11/2025 Assessment & Plan (01/11/2025 10:12 AM TELEPHONY ENGINEER): Nifedipine 10mg daily Gastroesophageal reflux disease without esophagi tis 01/11/2025 Assessment & Plan (01/11/2025 10:12 AM TELEPHONY ENGINEER): Lansoprazole 15mg daily Thyroid nodule 12/22/2024 Assessment & Plan (01/11/2025 10:12 AM TELEPHONY ENGINEER): Follow up with ENT Encounters Date Type Department Care Team Description 01/18/2025 Orders Only [facility] at [address] [phone] Naa Elizondo MD Class 1 obesity without serious comorbidity with body mass index (BMI) of 30.0 to 30.9 in adult, unspecified obesity type (Primary Dx) 01/11/2025 8:30 AM TELEPHONY ENGINEER Office Visit [facility] at [address] [phone] Naa Elizondo MD Acute cystitis without hematuria (Primary Dx); Thyroid nodule; Recurrent major depressive disorder, in partial remission; Primary hypertension; Gastroesophageal reflux disease without esophagitis; Mixed hyperlipidemia 01/11/2025 Telephone [facility] at [address] [phone] Naa Elizondo MD 01/04/2025 Results Follow-Up [facility] at [address] [place] [phone] Marbella Glez MA US Thyroid 01/03/2025 2:24 PM TELEPHONY ENGINEER - 01/03/2025 11:59 PM TELEPHONY ENGINEER Hospital Encounter [address] [id number] Thyroid nodule Discharge Disposition: Discharge to home or self care 12/26/2024 Orders Only [facility] at [address] [phone] Naa Elizondo MD Thyroid nodule (Primary Dx) 12/22/2024 Orders Only [facility] at [address] [phone] Naa Elizondo MD Thyroid nodule (Primary Dx) 11/15/2024 3:43 PM CDT - 11/15/2024 11:59 PM CDT Hospital Encounter [address] [address] Malignant neoplasm of head, face and neck (HCC); Cervicalgia Discharge Disposition: Discharge to home or self care from Last 3 Months Immunizations Immunization Administration Dates Next Due Hep A, Adult 01/05/2009,05/09/2008 Influenza, Quadrivalent, Hig h Dose, Preservative Free, Intrr 11/21/2019 Influenza, Quadrivalent, Spl it, Preservative Free, Intramuscular 11/23/2018 Influenza, Trivalent, IM (MDV) 0,11/11/2017,12/02/2016,11/15,12/01/2013 Influenza, Trivalent, Preser vative Free, Intramuscular 11/30/2016,11/15/2015,11/28/2014 Influenza, Unspecified 11/16/2020,2019,11/24/2018,11/10 [employer] SARS-CoV-2 Vaccination 04/20/2020 Pfizer SARS-CoV-2 Monovalent Vaccination (12+ Yrs) PURPLE 02/07/2021 Medical History Medical History Date Comments Depression Hypertension GERD (gastroesophageal reflux disease) Social History Tobacco Use Types Packs/Day Years Used Date Smoking Tobacco: Never Smokeless Tobacco: Never Comments No Sex and Gender Information Value Date Recorded Sex Assigned at Not on file Legal Sex Female 5:42 PM CDT Gender Identity Not on file Sexual Orientation Not on file Last Filed Vital Signs Vital Sign Reading Time Taken Comments Blood Pressure 110/74 01/11/2025 8:24 AM TELEPHONY ENGINEER Pulse 100 01/11/2025 8:24 AM TELEPHONY ENGINEER Temperature 37 C (98.6 F) 12/28/2021 9:43 AM TELEPHONY ENGINEER Respiratory Rate 12 01/11/2025 8:24 AM TELEPHONY ENGINEER Oxygen Saturation 98% 01/11/2025 8:24 AM TELEPHONY ENGINEER Inhaled Oxygen Concentration - - Weight 75.8 kg (167 lb) 01/11/2025 8:24 AM TELEPHONY ENGINEER Height 162.6 cm (5' 4) 01/11/2025 8:24 AM TELEPHONY ENGINEER Body Mass Index 28.67 01/11/2025 8:24 AM TELEPHONY ENGINEER Plan of Treatment Health Maintenance Due Date Last Done Comments Breast Cancer Screening-Mammogram 1965 Cervical Cancer Screening 1967 Depression Screening 1967 Hepatitis C Screening 1965 DTaP/Tdap/Td Vaccine (1 - Tdap) 11/17/1978 Hepatitis B Screening 11/17/1985 Regular Well Visit/Exam 18-64 11/17/1985 Zoster Vaccine (1 of 2) 11/17/2017 Covid-19 Vaccine (3 - season) 2024 02/07/2021, 04/20/2020 Influenza Vaccine (#1) 2024 , 11/21/2019, 11/21/2019, Additional history exists Colon Cancer Screening-Colonoscopy 06/08/2034 [...] Name Priority Date/Time Associated Diagnosis Comments US THYROID Routine 01/03/2025 3:11 PM TELEPHONY ENGINEER Thyroid nodule US SOFT TISSUE HEAD NECK Schedule Routine, Read Routine (OP Routine) 11/15/2024 4:07 PM CDT Malignant neoplasm of head, face and neck (HCC) Cervicalgia CT VIRTUAL COLONOSCOPY DIAGNOSTIC WO CONTRAST Schedule Routine, Read Routine (OP Routine) 06/08/2024 8:48 AM CDT Screening for colon cancer from Last 3 Months or Most Recently Relevant to Health Maintenance Results * US Thyroid (01/03/2025 3:11 PM TELEPHONY ENGINEER) Anatomical Region Laterality Modality Head and Neck N/A Ultrasound 01/03/2025 3:32 PM TELEPHONY ENGINEER Impressions 01/03/2025 3:32 PM TELEPHONY ENGINEER 1. Predominantly solid right thyroid nodule measuring up to 1.3 cm. Follow-up ultrasound in 12 months is recommended to assess for stability as clinically indicated. REFERENCE: According to the ACR Thyroid Imaging, Reporting and Data System (TI-RADS): White Paper of the ACR TI-RADS Committee Jun, 2016 recommendations regarding the management of thyroid nodules are as follows: * TI-RADS 1: Risk of malignancy <2%, no FNA or follow up required. * TI-RADS 2: Risk of malignancy <2%, no FNA or follow up required. * TI-RADS 3: Risk of malignancy 2%-5%. Nodules 1.5 cm or greater follow up at 1, 3 and 5 years recommended, for nodules 2.5 cm or greater FNA recommended. * TI-RADS 4: Risk of malignancy 5%-20% Nodules 1.0 cm or greater follow up at 1, 2, 3 and 5 years recommended, for nodules 1.5 cm or greater FNA recommended * TI-RADS 5: Risk of malignancy >20%. Nodules 0.5 cm or greater annual follow up for 5 years recommended, for nodules 1.0 cm or greater FNA recommended. The ACT TI-RADS committee recommends targeting no more than two nodules for FNA. If three or more nodules meet criteria for FNA, the two with the most suspicious appearance based on ACR TI-RADS points should be sampled. Electronically signed by: Tapan Wynn D.O. Narrative 01/03/2025 3:32 PM TELEPHONY ENGINEER EXAM DESCRIPTION: [THYROID ULTRASOUND] REASON FOR STUDY: Nodule TECHNIQUE: Ultrasound of the thyroid was performed with grayscale and color doppler. COMPARISON: 11/15/2024 FINDINGS: RIGHT: The right thyroid lobe measures 4.9 x 1.4 x 1.4 cm. There is a heterogeneous echotexture of the right thyroid lobe. Nodule 1: There is a predominantly solid slightly hyperechoic nodule containing small cystic spaces and punctate echogenic foci in the mid right thyroid lobe measuring 1.3 x 1.2 x 1.2 cm. TR 4. LEFT: The left thyroid lobe measures 4.1 x 1.2 x 1.1 cm. There is a mildly heterogeneous echotexture the left thyroid lobe without definite sonographic evidence of focal thyroid nodule. ISTHMUS: The isthmus appears grossly normal in measures 0.2 cm in AP dimension. OTHER: None Procedure Note Tapan Wynn, DO - 01/03/2025 EXAM DESCRIPTION: [THYROID ULTRASOUND] REASON FOR STUDY: Nodule TECHNIQUE: Ultrasound of the thyroid was performed with grayscale and color doppler. COMPARISON: 11/15/2024 FINDINGS: RIGHT: The right thyroid lobe measures 4.9 x 1.4 x 1.4 cm. There is a heterogeneous echotexture of the right thyroid lobe. Nodule 1: There is a predominantly solid slightly hyperechoic nodule containing small cystic spaces and punctate echogenic foci in the mid right thyroid lobe measuring 1.3 x 1.2 x 1.2 cm. TR 4. LEFT: The left thyroid lobe measures 4.1 x 1.2 x 1.1 cm. There is a mildly heterogeneous echotexture the left thyroid lobe without definite sonographic evidence of focal thyroid nodule. ISTHMUS: The isthmus appears grossly normal in measures 0.2 cm in AP dimension. OTHER: None IMPRESSION: 1. Predominantly solid right thyroid nodule measuring up to 1.3 cm. Follow-up ultrasound in 12 months is recommended to assess for stability as clinically indicated. REFERENCE: According to the ACR Thyroid Imaging, Reporting and Data System (TI-RADS): White Paper of the ACR TI-RADS Committee Jun, 2016 recommendations regarding the management of thyroid nodules are as follows: * TI-RADS 1: Risk of malignancy <2%, no FNA or follow up required. * TI-RADS 2: Risk of malignancy <2%, no FNA or follow up required. * TI-RADS 3: Risk of malignancy 2%-5%. Nodules 1.5 cm or greater follow up at 1, 3 and 5 years recommended, for nodules 2.5 cm or greater FNA recommended. * TI-RADS 4: Risk of malignancy 5%-20% Nodules 1.0 cm or greater follow up at 1, 2, 3 and 5 years recommended, for nodules 1.5 cm or greater FNA recommended * TI-RADS 5: Risk of malignancy >20%. Nodules 0.5 cm or greater annual follow up for 5 years recommended, for nodules 1.0 cm or greater FNA recommended. The ACT TI-RADS committee recommends targeting no more than two nodules for FNA. If three or more nodules meet criteria for FNA, the two with the most suspicious appearance based on ACR TI-RADS points should be sampled. Electronically signed by: Tapan Wynn D.O. us Naa Elizondo MD IMG US PROCEDURES Final Result * US Head Neck Soft Tissue (11/15/2024 [...] performed of the right neck by the field case manager, with selected grayscale and color Doppler images acquired and recorded in PACS. COMPARISON: None available. FINDINGS: Targeted sonographic grayscale and color Doppler assessment in the area of patient's clinical concern labeled as right neck without sonographic evidence for adenopathy. Further evaluation with contrast-enhanced neck CT after placement of a skin marker as clinically indicated. Pigeon Fancier also provides images labeled as right thyroid [...] Alden Han D.O. AP: AP Report ID: [id number] Reading Location: [place] [id number] Procedure Note Alden Han, DO - 11/19/2024 EXAM DESCRIPTION: US SOFT TISSUE HEAD NECK REASON FOR STUDY: malignant neoplasm of head, face, and neck;cervicalgia 2020 right head neck cancer, mass +19 nodes removed. Right neck pain for1 month. TECHNIQUE: A Dynamic assessment was performed of the right neck by the field case manager, with selected grayscale and color Doppler images acquired and recorded in PACS. COMPARISON: None available. FINDINGS: Targeted sonographic grayscale and color Doppler assessment in the area of patient's clinical concern labeled as right neck without sonographicevidence for adenopathy. Further evaluation with contrast-enhanced neck CT after placement of a skin marker as clinically indicated. Pigeon Fancier also provides images labeled as right thyroid [...] Alden Han D.O. AP: AP Report ID: [id number] Reading Location: [place] [address] us Naa Elizondo MD IMG US PROCEDURES Final Result * CT Colonoscopy [...] Most Recently Relevant to Health Maintenance Insurance [facility] [id number] [facility] [id number] Care Teams City Director Relationship Specialty Start Date End Date Naa Elizondo MD PCP - General Family Medicine 10/28/17
--- OUTSIDE RECORDS SUMMARY | 2025-02-02 07:40 | XMS_ITS | Continuity of Care Document ---
Author Organization [facility] [place] Address [address] [place] [address] Care Team Providers Care Fermenting Cellars Receiver Name Role Phone MICA MORENO Primary Care Provider Assessment Encounter Date Assessment Date Assessment LastModified by Organization Details LastModified Time 11/17/2024 11/17/2024 Annual gynecological exam performed. Patient will come back in a year unless there are new symptoms. Not available 11/17/2024 09:30:14 Plan of Treatment Reminders Order Date Submit Date Provider Last Modified By Organization Details Last Modified Time Details Appointments None record ed. Lab None record ed. Referral None record ed. Procedures None record ed. Surgeries None record ed. Imaging None record ed. Medication Orders None record ed. Patient TargetsNo targets recorded. Patient InstructionsNo instructions recorded. Reason for Referral None Reported. Results Created Date Observation Date Name Description Value Unit Range Abnormal Flag Note LastModifiedBy Organization Detail LastModifiedTime 11/18/19 25 11/17/2024 IMAGE GUIDE D PAP AND HPV REGAR DLESS image guided Pap, HPV regardless of Pap result SEE RESULT S BELOW CASE REPOR T: Cytol ogy Gynec ologi ban Repor t Case: [id number] Autho darius g Provi david: Fabrice Castañeda MD Colle cted: 11/17 1154 Order ing Locat ion: [place] [facility] Recei nick: 11/18 0121 First Scree n: Ma, Lamonte, CT Speci men: Scree gavin Pap - Image d, Cervi x STATE MENT OF ADEQU ACY: Satis facto ry for evalu ation Trans forma tion zone compo nent prese nt Kenny klein ring infla mmati on prese nt. ----- ----- ----- ----- ----- ----- ----- ----- ----- ----- ----- ----- ----- ----- ----- ----- ----- ---- FINAL DIAGN OSIS: Negat kevin for Intra epith elial Lesio n or Becca palencia (NIL) . Elect rosalino sam by Lamonte Mueller CT on 2024 at 0837 CDT ----- [...] . COMME NT: Slide scree andrea kvng bajwa due to rejec tion by the Thinp rep Imagi ng Syste m. CLINI BAN INFOR MATIO N: Menst rual Statu s: LMP (if appli cable ): Clini ban Histo ry/Pr eviou s Pap: Type of Neopl karthikeyan (if appli cable ): Signyenni quinonez t Clini ban Findi ngs: Other Histo ry: Hormo sapna [...] ng do not corre late with physi ban and/o r histo rical findi ngs, furth er inves tigat ion is recom booker d, as clini ariel warra nted. Not Available [facility] (Lab) [address] [facility], [place], [address], 11/22/2024 09:43:38 Result Notes None recorded. Problems Name Problem SNOMED Code Status Onset Date Resolution Date Notes Provider Name and Address Organization Details Recorded Time Screenin g for malignan t neoplasm of colon Completed 201009/11/2020 Special screenin g for malignan t neoplasm s, colon;Pr actice ID: [id number] Angela Vazquez [facility] 17:29:17 Atypical squamous cells on cervical Papanico laou smear cannot exclude high grade squamous intraepi thelial lesion [id number] Completed 201009/11/2020 Pap Abnormal ASCH;Pra ctice ID: 0001 Angela Vazquez [facility] 17:28:53 Speciali zed medical examinat ion Completed 201109/11/2020 Gynecolo gical Examinat ion;Sreekanth rded Elsewher e: No Locat ion[facility] S ource: EHR Simulation Software Engineer vicente: N Practi ce ID: [id number] Kvng lable Time: 01:30:00 PM Angela Vazquez [facility] 17:29:23 Atypical squamous cells of undeterm ined signific ance on cervical Papanico laou smear [id number] Completed 201209/11/2020 Papanico laou smear of cervix with atypical squamous cells of undeterm ined signific ance (ASC-US) ;Recorde d Elsewher e: No Locat ion[facility] S ource: EHR Simulation Software Engineer vicente: N Dana ce ID: 0001 Kvng lable Time: 03:45:00 PM Angela Vazquez [facility] 1 17:28:52 Human papillom a virus infectio n [id number] Completed 201309/11/2020 HUMAN PAPILLOM AVIRUS IN CONDITIO NS CLASSIFI ED ELSEWHER E AND OF UNSPECIF IED SITE;Rec orded Elsewher e: No Locat ion: [facility] S ource: EHR Simulation Software Engineer vicente: N Isidoroti ce ID: [id number] Kvng lable Time: 04:30:00 PM Angela Vazquez [facility] 17:29:05 Screenin g for malignan t neoplasm of cervix Completed 201409/11/2020 Screenin g for malignan t neoplasm s of the cervix;R ecorded Elsewher e: No Locat ion: [facility] S ource: EHR Simulation Software Engineer vicente: N Isidoroti ce ID: [id number] Kvng lable Time: 04:30:00 PM Angela Vazquez [facility] 17:29:15 Obesity [id number] Completed 201409/11/2020 Obesity; Recorded Elsewher e: No Locat ion: [facility] S ource: EHR Simulation Software Engineer vicente: N Isidoroti ce ID: [id number] Kvng lable Time: 04:30:00 PM Angela Vazquez [facility] 17:29:11 Benign essentia l hyperten aden 6759961 Completed 201409/11/2020 Benign HTN;Sreekanth rded Elsewher e: No Locat ion: [facility] S ource: EHR Simulation Software Engineer vicente: N Isidoroti ce ID: 0001 Kvng lable Time: 04:30:00 PM Angela Vazquez [facility] 1 17:28:55 Abnormal cervical Papanico laou smear 613012099 Completed 201409/11/2020 Other abnormal papanico laou smear of cervix and cervical HPV;Sreekanth rded Elsewher e: No Locat ion: [facility] S ource: EHR Simulation Software Engineer vicente: N Dana ce ID: [id number] Kvng lable Time: 10:30:00 AM Angela Vazquez [facility] 1 17:28:50 Family planning surveill ance Completed 201409/11/2020 Contrace ptive surveill ance;Rec orded Elsewher e: No Locat ion: [facility] S ource: EHR Simulation Software Engineer vicente: Bernabe Cortez ce ID: [id number] Kvng lable Time: 10:30:00 AM Angela Vazquez [facility] 1 17:29:[address] Concept Completed 201509/11/2020 Encntr for chief design drafter exam (general ) (routine ) w/o abn findings ;Recorde d Elsewher e: No Locat ion: [facility] S ource: EHR Simulation Software Engineer vicente: Bernabe Cortez ce ID: 0001 Kvng lable Time: 05:00:00 PM Angela Vazquez [facility] 1 17:29:22 Low risk human papillom avirus deoxyrib onucleic acid detected in specimen from cervix [id number] 306094 Completed 201509/11/2020 Cervical low risk human papillom avirus (HPV) DNA test positive ;Recorde d Elsewher e: No Locat ion: [facility] S ource: EHR Simulation Software Engineer vicente: N Dana ce ID: 0001 Kvng lable Time: 08:30:00 AM Angela Vazquez [facility] 1 17:29:08 Human papillom avirus deoxyrib onucleic acid detected , high risk on cervical specimen [id number] Completed 201509/11/2020 Cervical high risk HPV DNA test positive ;Recorde d Elsewher e: No Locat ion: [facility] S ource: EHR Simulation Software Engineer vicente: N Isidoroti ce ID: 0001 Kvng lable Time: 10:12:30 AM Angela Vazquez [facility] 17:29:07 Pregnanc y test negative [id number] Completed 201509/11/2020 Encounte r for pregnanc y test, result negative ;Recorde d Elsewher e: No Locat ion: [facility] S ource: EHR Simulation Software Engineer vicente: N Isidoroti ce ID: 0001 Kvng lable Time: 03:30:00 PM Angela Vazquez [facility] 17:29:13 Body mass index 30+ - obesity 234069139 Completed 201609/11/2020 Body mass index (BMI) 33.0-33. 9, adult;Re corded Elsewher e: No Locat ion: [facility] S ource: EHR Simulation Software Engineer vicente: N Isidoroti ce ID: 0001 Kvng lable Time: 09:30:00 AM Angela Vazquez [facility] 17:28:57 Screenin g for malignan t neoplasm of rectum Completed 201609/11/2020 Encounte r for screenin g for malignan t neoplasm of rectum;R ecorded Elsewher e: No Locat ion: [facility] S ource: EHR Simulation Software Engineer vicente: N Practi ce ID: 0001 Kvng lable Time: 09:30:00 AM Angela Vazquez [facility] 17:29:18 Evaluati on finding Completed 201609/11/2020 Oth abn and inconclu sive findings on dx imaging of breast;R ecorded Elsewher e: No Locat ion: [facility] S ource: EHR Simulation Software Engineer vicente: N Practi ce ID: 0001 Kvng lable Time: 03:57:36 PM Angela Vazquez [facility] 17:28:[address] Concept Completed 201709/11/2020 Encntr for general adult medical exam w/o abnormal findings ;Recorde d Elsewher e: No Locat ion: [facility] S ource: EHR Simulation Software Engineer vicente: N Isidoroti ce ID: 0001 Kvng lable Time: 03:30:00 PM Angela Vazquez [facility] 17:29:20 Evaluati on finding Completed 201709/11/2020 Hematuri a, unspecif ied;Sreekanth rded Elsewher e: No Locat ion: [facility] S ource: EHR Simulation Software Engineer vicente: N Isidoroalcides ce ID: 0001 Kvng lable Time: 03:30:00 PM Angela Vazquez [facility] 17:29:01 Problem Notes None recorded. Procedures Surgical History Date Name Laterality Status Provider Name and Address Organization Details Recorded Time 01/28/20 24 Date of Last Mammogram completed [facility] 11/17/2024 09:34:36 11/02/19 24 Date of Last Pap Smear completed Maureen [facility] 11/17/2024 09:34:04 04/20/19 23 Endometrial Biopsy completed Solo Castañeda MD [address], [place], [address], [facility] 04/19/2022 12:08:51 02/18/19 20 completed Angela [facility] 09/12/2020 09:35:56 02/18/19 20 Date of Last Colonoscopy completed [facility] 09/12/2020 09:35:57 02/16/19 20 Colonoscopy completed VICTORIANO Brock- [address], [place], [address], [place] [facility] 03/15/2021 16:38:03 Other completed Angela Vazquez [facility] 03/15/2021 16:29:30 Cryotherapy/Cryoc autery completed Kimi Agrawal [facility] 08/22/2019 10:39:46 Tonsillectomy completed Kimi Agrawal [facility] 08/22/2019 10:39:50 Imaging Results None recorded. Procedure Notes None recorded. Medical Equipment None Reported. Allergies Allergen ID Allergen Name Allergen Category Reaction Reaction Severity Criticality Documentation Date Start Date Code Code System Note Provider Name and Address Organization Details Recorded Time 1203 ciproflox acin medicatio n Not available Not available Not available 08/22/2019 2551 RxNorm Kimi Agrawla [facility] 0 10:36:47 91186 famotidin e medicatio n Not available Not available Not available 09/12/2020 4278 RxNorm Angela Vazquez [facility] 1 09:36:23 70893 Substance with quinolone structure and antibacte rial mechanism of action (substanc e) medicatio n Not available Not available Not available 09/12/2020 24588 1999 SNOMED Angela Vazquez [facility] 1 09:36:35 Medications Name Sig Start [...] route every day 09/11 completed Prescrib ed Lisa e: Yes Loca tion: [facility] odify By: jennifer appiah DateTime [...] every 12 hours 09/11 completed Prescrib ed Lisa e: Yes Loca tion: [facility] odify By: virgie casanova DateTime : 08/17/19 19 08:30:00 AM Not Available Not Available Not Available lansopraz ole 15 mg capsule,d elayed release take 1 capsule by oral route every day before a meal 08/15 completed Prescrib ed Elsewher e: Yes Loca tion: [facility] odify By: jennifer appiah DateTime : [...] Prescrib ed Elsewher e: Yes Loca tion: [facility] odify By: virgie casanova DateTime : 08/17/19 19 08:30:00 AM Not Available Not Available Not Available Necon 0.5/35 (28) 0.5 mg-35 mcg tablet take 1 tablet by oral route every day 03/21 completed Prescrib ed Elsewher e: No [facility] By: joce amezcua DateTime : 03/01/19 [...] Prescrib ed Elsewher e: No Locat ion: [facility] odify By: yariel casanova DateTime : 08/06/19 17 09:30:00 AM Not Available Not Available Not Available Ambien 5 mg tablet take 2 tablet by oral route every day at bedtime 11/17 completed Prescrib ed Elsewher e: Yes [facility] odify By: jennifer appiah DateTime : [...] ed Elsewher e: Yes [facility]oca [facility] odify By: jennifer appiah DateTime : 09/23/19 12 01:30:00 PM Not Available Not Available Not Available Calcium 500 + D 500 mg-5 mcg (200 unit) tablet 10/03 completed Prescrib ed Elsewher e: Yes Loca tion: [facility] odify By: shey appiah DateTime [...] Prescrib ed Elsewher e: Yes Loca tion: [facility] odify By: shey appiah DateTime : 10/04/19 15 10:30:00 AM Not Available Not Available Not Available [place] 3-6-9 (with lipase) 40 mg-60 mg-10 unit capsule 11/17 completed Prescrib ed Elsewher e: Yes Loca tion: [facility] odify By: virgie morrisunter DateTime : 08/17/19 19 08:30:00 AM Not Available Not Available Not Available [place] 3-6-9 03/15 completed Not Available Not Available Not Available Fiber Laxative (methylce llulose) 500 mg tablet active Prescrib ed Elsewher e: Yes Loca tion: [facility] odify By: jennifer appiah DateTime [...] sublingua l lozenge 10/28 completed Prescrib ed Lisa e: Yes Loca tion: [facility] odify By: jennifer appiah DateTime : [...] Updated DateTime 11/17/2024 161.29 cm 32.1 kg/m2 11699 g 98/64 mm[Hg] Maureen [facility] 11/17/2024 09:31:14 Social History Question Answer Notes LastModified by Organizat ion Details LastModified Time Tobacco Smoking Status Never Smoker Maureen Kp [facility] 10/28/2022 16:37:33 Do You Have An [...] Or The Highest Degree You Have Received? 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 Moderate Information not available 03/15/2021 Mental Status Question Answer Note LastModified by Organization D etails LastModified Time Do you feel stressed (tense, restless, nervous, or anxious, or unable to sleep at night)? [id number] Information not available 09/12/2020 Family History Relationship [...] ICD10 Code Diagnosis IMO Codes Diagnosis Note [id number] Solo Castañeda MD [place] [address] [address] 11/17/2024 09:14:35 11/17/2024 11:32:25 Gynecologic examination [id number] Z01.419 [id number] Annual gynecologi ban exam performed. Patient will come back in [...] by Organization Details LastModified Time None Recorded Payers Encounter Date Sequence Insurance Name Policy Number Policy Wheatley Covered Member ID Wheatley Member ID Guarantor Name 11/17/2024 1 [employer] - [facility] [employer] [id number] Bharat Denson [id number] ANTONY Denson Notes Date Note Type Note Provider Name and Address Organization Details Recorded Time 11/18/19 25 text/htm l Annual GYNReported by [...] examinationandencourage regular exercise. Solo Castañeda MD [address], [place], [address], [facility] 11/17/2024 11:15:09 OBGyn Episode No OBEpisode recorded.
--- OUTSIDE RECORDS SUMMARY | 2025-02-02 07:40 | XMS_ITS | Encounter Summary ---
Author Organization [facility] Address [address] [address] Care Team Providers Care Astro Technician Name Role Phone Naa Elizondo MD Primary Care Provider [phone] Encounter Details Date Type Department Care Team (Late st Contact Info) Description 06/01/2020 Lab Requisition [facility] [address] [place] [address] Enzo Kerns MD [address] [place] [id number] Enlarged lymph nodes, unspecified Social History Tobacco Use Types Packs/Day Years Used Date Smoking Tobacco: Never Alcohol Use Standard Drinks/Week Comments Yes 0 (1 standard drink = 0.6 oz pur e alcohol) Comments Unknown Sex and Gender Information Value Date Recorded Sex Assigned at Not on file Legal Sex 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 Gender Identity Not on file Sexual Orientation Not on file documented as of this encounter Plan of Treatment Upcoming Encounters Date Type Department Care Team (Late Contact Info) Description 06/30/2025 2:30 PM CDT [facility] Visit [facility] [address] [facility], [place] [address] Zander Bacon MD [address] [place] [address] [address] [place] [address] [phone] (work) documented as of this encounter Procedures Procedure Name Priority Date/Time Associated Diagnosis Comments FLOW CYTOMETRY TISSUE PANEL Routine 06/01/2020 8:43 AM CDT Enlarged lymph nodes, unspecified documented in this encounter Results * FLOW CYTOMETRY TISSUE PANEL (06/01/2020 8:43 AM CDT) Case Report Flow Cytometry Case: [id number] Authorizing Provider: Enzo Kerns MD Collected: 06/01/2020 08:43 AM Ordering Location: [facility] Received: 06/01/2020 12:28 PM Pathologist: Anupam Pardo MD Specimen: RIGHT NECK MASS 06/01/2020 3:40 PM CDT [facility] Final Diagnosis Right neck mass, flow cytometry: - No clonal B-cell or aberrant T-cell population identified 06/01/2020 3:40 PM CDT [facility] at 1540 CDT Flow [...] histology is recommended. 06/01/2020 3:40 PM CDT [facility] Flow Cytometry Results Differential Result Comment Flow Cell Count /uL 800 Total Viability % 75.0 Lymphocytes % 82 Dim CD45 Region % 4 Monocytes % 5 Granulocytes % 7 06/01/2020 3:40 PM CDT [facility] Reason for test Enlarged lymph nodes, unspecified 06/01/2020 3:40 PM CDT [facility] Client Specimen ID # [id number] 06/01/2020 3:40 PM CDT [facility] Number of markers 16 were performed. A-2 Flow CD2 A-3 Flow CD3 A-4 Flow CD4 A-8 Flow CD1a A-10 Flow CD10 A-12 Flow CD20 A-13 Flow CD23 A-5 Flow CD5 A-6 Flow CD7 A-7 Flow CD8 A-9 Flow CD30 A-11 Flow CD19 A-14 Flow CD34 A-15 Flow CD45 A-16 [place]+CD19+ A-17 Lambda+CD19+ 06/01/2020 3:40 PM CDT [facility] Disclaimer Test performed at [facility], [address] [place], [place], [address]. *The established laboratory minimum viability is 70%. [...] complexity clinical testing. 06/01/2020 3:40 PM CDT [facility] Embedded Images 3:40 PM CDT [facility] Pathology/Cytolo gy 06/01/2020 8:43 AM CDT 06/01/2020 12:28 PM CDT Enzo Kerns MD LAB - PATHOLOGY/CYTOLOGY ORDER KINDRA Final Result [facility] [address] [place] [address]. [place] [address], [facility] [phone] documented in this encounter Visit Diagnoses Diagnosis Enlarged lymph nodes, unspecified documented in this encounter Additional Health Concerns Infection Onset Date Last Indicated Resolved Time COVID-19 Under Investigation 07/13/2020 07/13/2020 07/13/2020 7:54 PM CDT documented as of this encounter Care Teams Astro Technician Relationship Specialty Start Date End Date Naa Elizondo MD [address] [place] [address] PCP - General Family Medicine 08/01/20 documented as of this encounter
--- OUTSIDE RECORDS SUMMARY | 2025-02-02 07:40 | XMS_ITS | Clinical Summary ---
Author Organization [facility] Address [address] [place] [address] Phone Care Team Providers Care Quarry Supervisor Name Role Phone Naa Elizondo MD Primary Care Provider [phone] Zander Bacon MD Unavailable [phone] Enzo Funez MD Unavailable [phone] Troy Crump MD Unavailable [phone] Allergies Active Allergy Reactions Criticality Noted Date [...] PO daily. Active trimethoprim-polym yxin b (POLYTRIM) 62599-9.1 UNIT/ML-% Solution 4 Active buPROPion (WELLBUTRIN) 300 [...] Description 11/14/2024 11:00 AM CDT [facility] [address] [place] [address] Troy Crump MD History of [...] Description 04/24/2025 9:00 AM CDT [facility] [address] [place] [address] Enzo Funez MD [address] [place] [address] 11/14/2025 11:00 AM CDT [facility] [address] [place] [address] Troy Crump MD [address] [place] [address] Discharge Disposition: Discharged to home or Selfcare [...] 75+ series) 11/17/2042 Human Papillomavirus (HPV) Immunization (No Doses Required) Completed Meningococcal Immunization (ACWY) Aged Out No longer [...] Ready to change Department associated with goal: [facility] Steps to achieve [...] Ready to change Department associated with goal: [facility] Steps to achieve [...] fluids to eat after going through chemo Procedures Procedure Name Priority Date/Time Associated Diagnosis Comments [id number] CONSULT 12/30/2024 12:00 AM CLIP AND HANGER ATTACHER from Last 3 Months Results * [id number] CONSULT (12/30/2024 12:00 AM CLIP AND HANGER ATTACHER) 12/30/2024 us Provider Scan GENERIC SCAN ORDERS CONSULT Le l Result SCAN from Last 3 Months Insurance [employer] [facility] OAP Care Teams Quarry Supervisor Relationship Specialty Start Date End Date Naa Elizondo MD [address] [place] [address] PCP - General Family Medicine 08/02/20 Zander Bacon MD [address] [place] [address] Consulting Physician Otolaryngology & Facial Plastic Surgery 08/02/20 Enzo Funez MD [address] [place] [address] Consulting Physician Radiation Oncology 08/02/20 Troy Crump MD [address] [place] [address] Consulting Physician Medical Oncology 08/14/20
== END 2025-02-02 07:36 | disposition home or self-care (01) ==
LOC: ANHFOHIMG 07:38
PROVIDERS: PCP Family Medicine; Visit Provider Family Medicine
DX: Z12.31 Encounter for screening mammogram for malignant neoplasm of breast (principal)
CPT/HCPCS: 77063; 77067